=== PATIENT | female | born 1935 | race Asian ===

== ENCOUNTER 2018-01-28 04:32 | Inpatient (IN) | payer SELFPAY ==
[~2018-01-28] VITALS: Ht 152.4 cm; Wt 50.8 kg
[2018-01-28] VITALS (15 sets, daily range): BP systolic 96–133; BP diastolic 57–76
[2018-01-28] MEDS ORDERED: Sodium Chloride 500ML 500 ML IV ONE (04:37)
--- NOTE | 2018-01-28 04:39 | Emergency Room Report ---
History of Present Illness General Source: Patient (Bruna Argueta DO) Present Illness HPI Patient presents with complaints of nausea and vomiting patient also had mid abdominal pain Symptoms started recently Patient's grandson reports the patient had bladder infection previously At this time denies any chest pain denies any fevers or chills Denies any dysuria Pain is 5 out of 10 Sharp denies any radiation (JacobaayushBruna DO) Allergies: Coded Allergies: NO KNOWN ALLERGIES (Unverified Allergy, Unknown, 04/09/15) Patient History Past Medical History: see triage record Pertinent Family History: none Reviewed Nursing Documentation: PMH: Agreed; PSxH: Agreed (JacobBruna looney ) Nursing Documentation-PMH Hx Hypertension: Yes Hx Cancer: No Hx Gastrointestinal Problems: No Hx Neurological Problems: No (JacobBruna brooks DO) Review of Systems All Other Systems: negative except mentioned in HPI (JacobtoddBruna DAVIES) Physical Exam 99% on room air Sp02 EP Interpretation: reviewed, normal General Appearance: well appearing, no apparent distress Head: normocephalic, atraumatic Eyes: bilateral eye PERRL, bilateral eye EOMI ENT: hearing grossly normal, normal pharynx, TMs + canals normal, uvula midline Neck: full range of motion, supple, no meningismus, no bony tend Respiratory: lungs clear, normal breath sounds, no rhonchi, no respiratory distress, no retraction, no accessory muscle use Cardiovascular #1: normal peripheral pulses, regular rate, rhythm, no edema, no gallop, no JVD, no murmur Gastrointestinal: normal bowel sounds, non tender - However subjectively points to the mid epigastric and mid abdominal area, soft, no mass, no organomegaly, non-distended, no guarding, no hernia, no pulsatile mass, no rebound Genitourinary: no CVA tenderness Musculoskeletal: normal inspection Neurologic: oriented x3, responsive, foam tank laminator III-XII nml as tested, motor strength/ tone normal, sensory intact Psychiatric: mood/affect normal Skin: normal color, no rash, warm/dry, palpation normal Lymphatic: normal inspection, no adenopathy (LeviBruna sellers DO) Procedures Critical Care Time Critical Care Time 50 minutes for multiple re-evaluations, critical findings concerning for acute cardiac injury and possible not including any procedural time (Jamehdor,Ali DO) Critical Care Time Total Critical Care Time: 45 min bedside evaluation and treatment excludes procedures (EKG). Reason for critical care: blood transfusion, discussion with family, evaluation of CT and discussion with jewelry consultant and admitting MD, antibiotics Possible complications: hypotension, hypertension, [place], shock, arrhythmias, metabolic acidosis, end organ damage, respiratory failure. Interventions: transfusion, pain control, repeated exams, discussion with family , antibiotics Course: Patient with low H/H with melena. Hypotensive. Blood ordered and discussed with family. Improved BP. CT with choledocholithiasis. WBC high. Antibiotics begun. BP enough for analgesia. Repeated exams and doses of analgesia. Discussed with admitting MD and GI specialist. Consultations: nursing staff, EMS, family, blood bank, admitting MD, GI jewelry consultant Performed by: Dr. Heart Tolerated well condition = critical (Alvin Heart MD) Medical Decision Making Diagnostic Impression: Primary Impression: Abdominal pain Qualified Codes: R10.13 - Epigastric pain Additional Impressions: Vomiting Qualified Codes: R11.2 - Nausea with vomiting, unspecified Anemia Qualified Codes: D64.9 - Anemia, unspecified GI bleed Qualified Codes: K92.2 - Gastrointestinal hemorrhage, unspecified Choledocholithiasis ER Course After discussing further with the family They report now that the patient has been having black stools Patient does not have a record of previously being anemic Has not had any previous blood transfusions Today's finding is concerning for GI bleed Patient's CAT scan imaging also displays some concerning findings/nonspecific findings Patient requiring admission and further specialty consultation Blood transfusion has been ordered emergently and patient upgraded to telemetry Labs Test 01/28/18 04:45 01/28/18 05:07 01/28/18 06:30 01/28/18 13:50 White Blood Count 12.0 K/UL (4.8-10.8) 17.0 K/UL (4.8-10.8) 23.6 K/UL (4.8-10.8) Red Blood Count 2.98 M/UL (4.20-5.40) 2.96 M/UL (4.20-5.40) 4.05 M/UL (4.20-5.40) Hemoglobin 5.2 G/DL (12.0-16.0) 5.2 G/DL (12.0-16.0) 8.5 G/DL (12.0-16.0) Hematocrit 17.5 % (37.0-47.0) 17.6 % (37.0-47.0) 27.0 % (37.0-47.0) Mean Corpuscular Volume 59 FL (80-99) 59 FL (80-99) 67 FL (80-99) Mean Corpuscular Hemoglobin 17.4 PG (27.0-31.0) 17.6 PG (27.0-31.0) 21.1 PG (27.0-31.0) Mean Corpuscular Hemoglobin Concent 29.6 G/DL (32.0-36.0) 29.6 G/DL (32.0-36.0) 31.6 G/DL (32.0-36.0) Red Cell Distribution Width 14.7 % (11.6-14.8) 15.0 % (11.6-14.8) 23.4 % (11.6-14.8) Platelet Count 373 K/UL (150-450) 355 K/UL (150-450) 349 K/UL (150-450) Mean Platelet Volume 6.6 FL (6.5-10.1) 6.1 FL (6.5-10.1) 6.4 FL (6.5-10.1) Neutrophils (%) (Auto) % (45.0-75.0) % (45.0-75.0) % (45.0-75.0) Lymphocytes (%) (Auto) % (20.0-45.0) % (20.0-45.0) % (20.0-45.0) Monocytes (%) (Auto) % (1.0-10.0) % (1.0-10.0) % (1.0-10.0) Eosinophils (%) (Auto) % (0.0-3.0) % (0.0-3.0) % (0.0-3.0) Basophils (%) (Auto) % (0.0-2.0) % (0.0-2.0) % (0.0-2.0) Differential Total Cells Counted 100 100 100 Neutrophils % (Manual) 89 % (45-75) 93 % (45-75) 94 % (45-75) Lymphocytes % (Manual) 8 % (20-45) 3 % (20-45) 4 % (20-45) Monocytes % (Manual) 1 % (1-10) 0 % (1-10) 2 % (1-10) Eosinophils % (Manual) 1 % (0-3) 2 % (0-3) 0 % (0-3) Basophils % (Manual) 0 % (0-2) 0 % (0-2) 0 % (0-2) Band Neutrophils 1 % (0-8) 2 % (0-8) 0 % (0-8) Nucleated Red Blood Cells 1 /100 WBC Platelet Estimate Adequate Adequate Adequate Platelet Morphology Normal Normal Normal Anisocytosis 2+ 2+ 2+ Microcytosis 2+ 1+ 1+ Ovalocytes 1+ 1+ Acanthocytes 1+ 1+ 1+ Sodium Level 139 MMOL/L (136-145) Potassium Level 3.7 MMOL/L (3.5-5.1) Chloride Level 105 MMOL/L (98-107) Carbon Dioxide Level 21 MMOL/L (21-32) Anion Gap 13 mmol/L (5-15) Blood Urea Nitrogen 16 mg/dL (7-18) Creatinine 0.6 MG/DL (0.55-1.30) Estimat Glomerular Filtration Rate mL/min (>60) Glucose Level 133 MG/DL (74-106) Calcium Level 8.3 MG/DL (8.5-10.1) Total Bilirubin 0.4 MG/DL (0.2-1.0) Aspartate Amino Transf (AST/SGOT) 21 U/L (15-37) Alanine Aminotransferase (ALT/SGPT) 23 U/L (12-78) Alkaline Phosphatase 101 U/L (46-116) Total Creatine Kinase 37 U/L (26-308) Creatine Kinase MB 0.5 NG/ML (0.0-3.6) Creatine Kinase MB Relative Index 1.3 Troponin I 0.008 ng/mL (0.000-0.056) Total Protein 6.8 G/DL (6.4-8.2) Albumin 3.1 G/DL (3.4-5.0) Globulin 3.7 g/dL Albumin/Globulin Ratio 0.8 (1.0-2.7) Lipase 97 U/L (73-393) Urine Color Jennyfer Urine Appearance Slightly cloudy Urine pH 5 (4.5-8.0) Urine Specific [place] 1.025 (1.005-1.035) Urine Protein 2+ (NEGATIVE) Urine Glucose (UA) Negative (NEGATIVE) Urine Ketones 1+ (NEGATIVE) Urine Blood 1+ (NEGATIVE) Urine Nitrite Negative (NEGATIVE) Urine Bilirubin 2+ (NEGATIVE) Urine Ictotest Positive (NEGATIVE) Urine Urobilinogen 4 MG/DL (0.0-1.0) Urine Leukocyte Esterase 2+ (NEGATIVE) Urine RBC 0-2 /HPF (0 - 2) Urine WBC 15-20 /HPF (0 - 2) Urine Squamous Epithelial Cells Moderate /LPF (NONE/OCC) Urine Bacteria Few /HPF (NONE) Hypochromasia 1+ Schistocytes 1+ 1+ Macrocytosis 1+ Prothrombin Time 11.2 SEC (9.30-11.50) Prothromb Time International Ratio 1.1 (0.9-1.1) Activated Partial Thromboplast Time 27 SEC (23-33) (Bruna Argueta DO) ER Course Please see above note. Patient hypoxemic though no dyspnea. CXR ordered. Blood pending. C/O abd pain. BP low but good enough to treat pain. Epigastric, no rebound, more RUQ. Morphine ordered. BP improved. Blood started after discussion with family. CT results below. Discussed with family. Antibiotics given, protonix and consult GI. Contact Dr. Ramirez and discussed findings. VS improved. Pain improved. Morphine repeated and tolerated well. (Alvin Heart MD) Rhythm Strip Diag. Results EP Interpretation: yes Rate: 87 Rhythm: NSR, no PVC's, no ectopy (Bruna Argueta DO) EP Interpretation: yes Rhythm: NSR, no PVC's, no ectopy (Alvin Heart MD) Chest X-Ray Diagnostic Results Chest X-Ray Diagnostic Results : Chest X-Ray Ordered: Yes # of Views/Limited/Complete: 1 View Indication: Chest Pain EP Interpretation: Yes Interpretation: no consolidation, no effusion, no pneumothorax Impression: No acute disease Electronically Signed by: Bruna Argueta DO (Bruna Argueta DO) Chest X-Ray Diagnostic Results : Chest X-Ray Ordered: Yes # of Views/Limited/Complete: 1 View Indication: Other EP Interpretation: Yes Interpretation: no consolidation, no effusion, no pneumothorax, other - ectatic aorta (Alvin Heart MD) CT/MRI/US Diagnostic Results CT/MRI/US Diagnostic Results : Impression ct abd/pelvisImpression: Cholelithiasis and choledocholithiasis. Somewhat unusual as no evidence of such was seen on previous exam of April 2015. Small bubbles of gas seen in the downstream common bile duct at the level of the ampulla this raises possibility of microperforation or could be related to recent intervention such performed Consider ultrasound or MRCP for better characterization of the above Extensive colonic stool, some liquid, with mild distention proximally but no evidence of downstream obstructive lesion findings may represent constipation or colitis. Mild wall thickening of the descending colon could indicate stercoral colitis. Correlate with clinical findings No evidence of small bowel obstruction. However, small bowel loops are somewhat prominent and containing small bowel feces, indicating stasis of contents Vague area of low-attenuation in the right hepatic lobe, presumably sequela of previously demonstrated liver abscess 45 mm left ovarian cyst, unchanged from 04/09/2015 Basilar pulmonary dependent atelectasis, tiny left-sided bulla, and interstitial septal thickening Cardiomegaly Other findings as noted, including degenerative spondylosis, scoliosis, bilateral buttock injection granulomata, left fallopian tube calcifications (Bruna Argueta DO) CT/MRI/US Diagnostic Results : Imaging Test Ordered: CT a/p Impression Mild bibasilar atelectasis with mild pulmonary interstitial edema. Mild cardiomegaly. Anemia is suggested. Clearly lithiasis along with choledocholithiasis with common bowel duct distention. Gallbladder is distended. Right upper quadrant ultrasound recommended for further evaluation. Significant stool load suggesting constipation. Suggestion of cystitis. (Alvin Heart MD) Status: improved (Bruna Argueta DO) Last Vital Signs Date Time Temp Pulse Resp B/P (MAP) Pulse Ox O2 Delivery O2 Flow Rate FiO2 01/28/18 09:39 97.6 78 21 109/67 100 Room Air Status: improved (Alvin Heart MD) Disposition: ADMITTED INPATIENT Condition: Critical Bruna Argueta DO Jan 28, 2018 04:39 Alvin Heart MD Jan 28, 2018 06:35
[2018-01-28] MEDS ORDERED: DiphenhydrAMINE 50mg/ml Inj IVP ONE (05:15)
[2018-01-28 05:54] LABS: HEMATOCRIT 17.5 % (37.0-47.0); MEAN CORPUSCULAR VOLUME 59 FL (80-99); PLATELET COUNT 373 K/UL (150-450); RED BLOOD COUNT 2.98 M/UL (4.20-5.40); RED CELL DISTRIBUTION WIDTH 14.7 % (11.6-14.8)
[2018-01-28 05:55] LABS: APPEARANCE,URINE SLIGHTLY CLOUDY; BILIRUBIN, URINE 2+ (NEGATIVE); GLUCOSE, URINE (UA) NEGATIVE (NEGATIVE); KETONES,URINE 1+ (NEGATIVE); NITRITE,URINE NEGATIVE (NEGATIVE); PH,URINE 5 (4.5-8.0); PROTEIN,URINE 2+ (NEGATIVE); UROBILINOGEN,URINE 4 MG/DL (0.0-1.0)
[2018-01-28 06:07] LABS: ANION GAP 13 mmol/L (5-15); BLOOD UREA NITROGEN 16 mg/dL (7-18); CALCIUM 8.3 MG/DL (8.5-10.1); CARBON DIOXIDE 21 MMOL/L (21-32); CHLORIDE 105 MMOL/L (98-107); CREATININE 0.6 MG/DL (0.55-1.30); POTASSIUM 3.7 MMOL/L (3.5-5.1); SODIUM 139 MMOL/L (136-145)
[2018-01-28 06:10] LABS: HEMOGLOBIN 5.2 G/DL (12.0-16.0)
[2018-01-28 06:13] LABS: COLOR,URINE AMBER; LEUKOCYTE ESTERASE ,URINE 2+ (NEGATIVE)
[2018-01-28 06:19] LABS: ALANINE AMINOTRANSFERASE 23 U/L (12-78); ALBUMIN 3.1 G/DL (3.4-5.0); ALBUMIN/GLOBULIN RATIO 0.8 (1.0-2.7); ALKALINE PHOSPHATASE 101 U/L (46-116); ASPARTATE AMINO TRANSFERASE 21 U/L (15-37); BILIRUBIN,TOTAL 0.4 MG/DL (0.2-1.0); CKMB 0.5 NG/ML (0.0-3.6); CREATINE KINASE 37 U/L (26-308)
[2018-01-28] MEDS ORDERED: NKM (06:34)
[2018-01-28 06:42] LABS: HEMATOCRIT 17.6 % (37.0-47.0); MEAN CORPUSCULAR VOLUME 59 FL (80-99); PLATELET COUNT 355 K/UL (150-450); RED BLOOD COUNT 2.96 M/UL (4.20-5.40)
[2018-01-28] MEDS: Morphine Sulfate 2mg/ml Inj IVP ONE ×2 (06:47→06:54)
[2018-01-28] MEDS ORDERED: Morphine Sulfate 2mg/ml Inj IVP ONE ×3 (07:00→09:00)
[2018-01-28] MEDS ORDERED: Nitroglycerin Subl 0.4mg tab SL PRN ×2 (07:15→17:00)
[2018-01-28] MEDS ORDERED: Mylanta II UD 30ml ORAL PRN ×2 (07:15→17:30)
[2018-01-28] MEDS ORDERED: Promethazine HCl 25 MG in NS 55 ML IV PRN (07:15)
[2018-01-28] MEDS ORDERED: Miralax 17gm pkt ORAL PRN ×2 (07:15→21:00)
[2018-01-28] MEDS ORDERED: LORazepam Inj 2mg/ml 1ml IV PRN ×2 (07:15→17:30)
[2018-01-28] MEDS ORDERED: Morphine Sulfate 2mg/ml Inj IVP PRN (07:15)
[2018-01-28] MEDS ORDERED: Promethazine HCl 12.5 MG in NS 55 ML IV PRN (07:15)
[2018-01-28] MEDS ORDERED: Metoclopramide 10mg/2ml Inj IVP PRN (07:15)
[2018-01-28 07:28] LABS: HEMOGLOBIN 5.2 G/DL (12.0-16.0)
[2018-01-28] MEDS ORDERED: Pantoprazole Inj IVP STA (07:36)
[2018-01-28] MEDS ORDERED: Cefepime HCl 1 GM in D5W 55 ML IVPB ONE (07:45)
[2018-01-28] MEDS ORDERED: Heparin 5000 units/ml inj SUBQ SCH (09:00)
[2018-01-28] MEDS ORDERED: D5 1/2NS 1,000 ML IV SCH (09:00)
[2018-01-28] MEDS ORDERED: Pantoprazole Inj IV SCH (09:00)
--- NOTE | 2018-01-28 09:30 | GI Initial Consult Note ---
History of Present Illness General Date patient seen: Jan 28, 2018 Time patient seen: 09:26 Reason for Hospitalization: Abdominal Pain Referring physician: IMELDA CHARLES Reason for Consultation: UGIB Present Illness HPI Patient presents with complaints of nausea and vomiting patient also had mid abdominal pain with complaints of melena. GI consulted for possible UGIB. Pt presents today with anemia with severely low Hgb of 5.2 CT AP was performed in ED to show the presence of cholelithiasis and choledocholithiasis with CBD dilation. In addition showed with distended gallbladder and stool consistent with constipation. Labs reviewed; severe anemia, leukocytosis, no transaminitis nor elevated bilirubin. Pt seen, awake A&Ox4 with active vomiting at this time. Patient has c/o of stomach discomfort and pain. Unknown history of endoscopy / colonoscopy. Home Meds Reported Medications No Known Medications* (NKM - No Known Medications*) ., 0 ., 0 Refills 01/28/18 Med list reviewed/reconciled: Yes Allergies: Coded Allergies: NO KNOWN ALLERGIES (Unverified Allergy, Unknown, 04/09/15) Patient History History Provided By: Patient, Family Member, Medical Record PMH Narrative Past Medical History: see triage record Pertinent Family History: none Reviewed Nursing Documentation: PMH: Agreed; PSxH: Agreed Nursing Documentation-PMH Hx Hypertension: Yes Hx Cancer: No Hx Gastrointestinal Problems: No Hx Neurological Problems: No Social History: Denies: smoking, alcohol use, drug use, other Review of Systems All Other Systems: negative except mentioned in HPI Physical Exam Vital Signs Date Time Temp Pulse Resp B/P (MAP) Pulse Ox O2 Delivery O2 Flow Rate FiO2 01/28/18 04:38 97.3 60 18 118/62 98 Room Air Sp02 EP Interpretation: reviewed, normal Labs Laboratory Tests Test 01/28/18 04:45 01/28/18 05:07 01/28/18 06:30 White Blood Count 12.0 K/UL (4.8-10.8) H 17.0 K/UL (4.8-10.8) H Red Blood Count 2.98 M/UL (4.20-5.40) L 2.96 M/UL (4.20-5.40) L Hemoglobin 5.2 G/DL (12.0-16.0) *L 5.2 G/DL (12.0-16.0) *L Hematocrit 17.5 % (37.0-47.0) L 17.6 % (37.0-47.0) L Mean Corpuscular Volume 59 FL (80-99) L 59 FL (80-99) L Mean Corpuscular Hemoglobin 17.4 PG (27.0-31.0) L 17.6 PG (27.0-31.0) L Mean Corpuscular Hemoglobin Concent 29.6 G/DL (32.0-36.0) L 29.6 G/DL (32.0-36.0) L Red Cell Distribution Width 14.7 % (11.6-14.8) 15.0 % (11.6-14.8) H Platelet Count 373 K/UL (150-450) 355 K/UL (150-450) Mean Platelet Volume 6.6 FL (6.5-10.1) 6.1 FL (6.5-10.1) L Neutrophils (%) (Auto) % (45.0-75.0) % (45.0-75.0) Lymphocytes (%) (Auto) % (20.0-45.0) % (20.0-45.0) Monocytes (%) (Auto) % (1.0-10.0) % (1.0-10.0) Eosinophils (%) (Auto) % (0.0-3.0) % (0.0-3.0) Basophils (%) (Auto) % (0.0-2.0) % (0.0-2.0) Differential Total Cells Counted 100 Neutrophils % (Manual) 89 % (45-75) H Pending Lymphocytes % (Manual) 8 % (20-45) L Pending Monocytes % (Manual) 1 % (1-10) Eosinophils % (Manual) 1 % (0-3) Basophils % (Manual) 0 % (0-2) Band Neutrophils 1 % (0-8) Nucleated Red Blood Cells 1 /100 WBC Platelet Estimate Adequate Pending Platelet Morphology Normal Pending Anisocytosis 2+ Microcytosis 2+ Ovalocytes 1+ Acanthocytes 1+ Sodium Level 139 MMOL/L (136-145) Potassium Level 3.7 MMOL/L (3.5-5.1) Chloride Level 105 MMOL/L (98-107) Carbon Dioxide Level 21 MMOL/L (21-32) Anion Gap 13 mmol/L (5-15) Blood Urea Nitrogen 16 mg/dL (7-18) Creatinine 0.6 MG/DL (0.55-1.30) Estimat Glomerular Filtration Rate mL/min (>60) Glucose Level 133 MG/DL (74-106) H Calcium Level 8.3 MG/DL (8.5-10.1) L Total Bilirubin 0.4 MG/DL (0.2-1.0) Aspartate Amino Transf (AST/SGOT) 21 U/L (15-37) Alanine Aminotransferase (ALT/SGPT) 23 U/L (12-78) Alkaline Phosphatase 101 U/L (46-116) Total Creatine Kinase 37 U/L (26-308) Creatine Kinase MB 0.5 NG/ML (0.0-3.6) Creatine Kinase MB Relative Index 1.3 Troponin I 0.008 ng/mL (0.000-0.056) Total Protein 6.8 G/DL (6.4-8.2) Albumin 3.1 G/DL (3.4-5.0) L Globulin 3.7 g/dL Albumin/Globulin Ratio 0.8 (1.0-2.7) L Lipase 97 U/L (73-393) Urine Color Jennyfer Urine Appearance Slightly cloudy Urine pH 5 (4.5-8.0) Urine Specific [place] 1.025 (1.005-1.035) Urine Protein 2+ (NEGATIVE) H Urine Glucose (UA) Negative (NEGATIVE) Urine Ketones 1+ (NEGATIVE) H Urine Blood 1+ (NEGATIVE) H Urine Nitrite Negative (NEGATIVE) Urine Bilirubin 2+ (NEGATIVE) H Urine Ictotest Positive (NEGATIVE) Urine Urobilinogen 4 MG/DL (0.0-1.0) H Urine Leukocyte Esterase 2+ (NEGATIVE) H Urine RBC 0-2 /HPF (0 - 2) Urine WBC 15-20 /HPF (0 - 2) H Urine Squamous Epithelial Cells Moderate /LPF (NONE/OCC) H Urine Bacteria Few /HPF (NONE) General Appearance: well appearing, no apparent distress, alert Head: normocephalic EENT: PERRL/EOMI, normal ENT inspection Neck: supple Respiratory: normal breath sounds, no respiratory distress Cardiovascular: normal rate Gastrointestinal: normal inspection, non tender, soft, normal bowel sounds, non -distended Rectal: deferred Genitourinary: no CVA tenderness Musculoskeletal: normal inspection, back normal Neurologic: normal inspection, alert, oriented x3, responsive Psychiatric: normal inspection, judgement/insight normal, memory normal Skin: normal inspection, normal color, no rash, warm/dry, palpation normal, well hydrated Lymphatic: normal inspection, no adenopathy Current Medications Current Medications Medications (Trade) Dose Ordered Sig/Bre Route PRN Reason Start Time Stop Time Status Last Admin Dose Admin Acetaminophen (Tylenol) 650 mg Q4H PRN ORAL fever (temp>100.5F) 01/28/18 07:15 02/27/18 07:14 Al Hydroxide/Mg Hydroxide (Mylanta II) 30 ml Q6H PRN ORAL dyspepsia 01/28/18 07:15 02/27/18 07:14 Dextrose (Dextrose 50%) 25 ml Q30M PRN IV Hypoglycemia 01/28/18 07:15 02/27/18 07:14 Dextrose (Dextrose 50%) 50 ml Q30M PRN IV Hypoglycemia 01/28/18 07:15 02/27/18 07:14 Dextrose/Sodium Chloride 1,000 ml @ 75 mls/hr [id number] IV 01/28/18 09:00 02/27/18 08:59 Diphenhydramine HCl (Benadryl) 25 mg Q6H PRN ORAL Itching/Pruritis 01/28/18 07:15 02/27/18 07:14 Lorazepam (Ativan 2mg/ml 1ml) 1 mg Q4H PRN IV agitation 01/28/18 07:15 02/04/18 07:14 Metoclopramide HCl (Reglan) 10 mg Q6H PRN IVP severe nausea 01/28/18 07:15 02/27/18 07:14 Morphine Sulfate (Morphine Sulfate) 2 mg Q4H PRN IVP severe pain (Pain Scale 7-10) 01/28/18 07:15 02/04/18 07:14 Nitroglycerin (Ntg) 0.4 mg Q5M X 3 DOSES PRN SL Prn Chest Pain 01/28/18 07:15 02/27/18 07:14 Ondansetron HCl (Zofran) 4 mg Q6H PRN IVP Nausea & Vomiting 01/28/18 07:15 02/27/18 07:14 01/28/18 09:12 Pantoprazole 80 mg/Sodium Chloride 250 ml @ 25 mls/hr Q10H IV 01/28/18 10:00 02/27/18 09:59 Polyethylene Glycol (Miralax) 17 gm HSPRN PRN ORAL Constipation 01/28/18 07:15 02/27/18 07:14 Promethazine HCl (Phenergan) 12.5 mg Q6H PRN IM refractory N/V 01/28/18 09:15 02/27/18 09:14 Temazepam (Restoril) 15 mg HSPRN PRN ORAL Insomnia 01/28/18 20:00 02/04/18 19:59 GI: Plan Problems: (1) GI bleed (2) Vomiting (3) Abdominal pain (4) Anemia (5) Choledocholithiasis (6) Abdominal gas pain Plan preliminary CTAP report >> cholelithiasis. choledocholithiasis with CBD dilation. GB distention. receiving pRBCs now EGD scheduled for today. - maintain NPO + IVFs ppi gtt will need abdominal U/S will follow with addition recs post procedure. Discussed with Dr. Ramirez. Thank you for this patient referral, we will follow. The patient was seen and examined at bedside and all new and available data was reviewed in the patients chart. I agree with the above findings, impression and plan. (Patient seen earlier today. Signature stamp does not reflect patient encounter time.). - MD Indy Cavazos,[facility] [employer]OL REPAIR TECHNICIAN Jan 28, 2018 09:30
--- NOTE | 2018-01-28 09:59 | Diagnostic Imaging Report ---
Indication: Abdominal pain for 4 days Technique: Spiral acquisitions obtained through the abdomen and pelvis. No oral contrast utilized, per referring room physician request No IV contrast utilized, per referring physician request.. Multiplanar reconstructions were generated. Total dose length product 768.85 mGycm. CTDIvol(s) 17.05 mGy. Dose reduction achieved using automated exposure control Comparison: 04/09/2015 contrast study Findings: Lack of enteric contrast limits assessment of the GI tract The appendix is normal. The ascending colon is is mildly distended, stool-filled, apparently combination of solid and liquid stool. The transverse colon is less distended but still upper limits of normal caliber and stool-filled, as is the proximal descending colon which gradually tapers to more normal caliber sigmoid colon and rectum. The ascending colon appears to be filled with solid stool, demonstrates mild wall thickening. No evidence of colonic obstructive process demonstrated. No definite wall thickening. Distal small bowel loops are somewhat prominent in caliber, but not frankly distended, contains fecalized contents. No free intraperitoneal fluid is evident. No evidence of diverticulosis or diverticulitis. Numerous calculi are seen within the gallbladder and along the course of the common bile duct. Note that the previous exam did not demonstrate any evidence of gallstones. There are also a few gas bubbles apparently surrounding the common bile duct at the level of the ampulla. The gallbladder is slightly more distended on the prior exam, but no wall thickening is evident and there is no evidence of biliary ductal dilatation. Of note, round hyperattenuating foci of similar appearance are also seen within the gastric and duodenal lumens. These most likely represent ingested tablets, but could conceivably represent passed biliary calculi. Given this and the periampullary gas, the possibility of a fistula should also be considered. These findings were discussed in person with Dr. Ramirez at the time of interpretation The lack of IV contrast limits assessment of the solid organs. There is some vague low-attenuation in segment 7 of the liver, in the area of the previously demonstrated presumed liver abscess. No other focal liver abnormality demonstrated. Other than the findings related to the biliary ampulla, the pancreas is otherwise grossly unremarkable. Spleen, adrenals, kidneys are unremarkable. No retroperitoneal or mesenteric mass or adenopathy. Again demonstrated is a unilocular somewhat thick walled 45 mm left ovarian cyst, appearing similar to the previous exam. Tubal calcifications are seen on the left. The included lung bases demonstrate posterior dependent atelectatic changes and a tiny bulla on the left. There is also some interstitial septal thickening. The heart is mildly enlarged. The bones demonstrate degenerative spondylosis changes and mild scoliotic deformity. Calcified injection granulomata are seen in the bilateral buttocks Impression: Cholelithiasis and choledocholithiasis. Somewhat unusual as no evidence of such was seen on previous exam of April 2015. Small bubbles of gas seen in the downstream common bile duct at the level of the ampulla this raises possibility of microperforation or could be related to recent intervention such performed Consider ultrasound or MRCP for better characterization of the above Extensive colonic stool, some liquid, with mild distention proximally but no evidence of downstream obstructive lesion findings may represent constipation or colitis. Mild wall thickening of the descending colon could indicate stercoral colitis. Correlate with clinical findings No evidence of small bowel obstruction. However, small bowel loops are somewhat prominent and containing small bowel feces, indicating stasis of contents Vague area of low-attenuation in the right hepatic lobe, presumably sequela of previously demonstrated liver abscess 45 mm left ovarian cyst, unchanged from 04/09/2015 Basilar pulmonary dependent atelectasis, tiny left-sided bulla, and interstitial septal thickening Cardiomegaly Other findings as noted, including degenerative spondylosis, scoliosis, bilateral buttock injection granulomata, left fallopian tube calcifications This agrees with the preliminary interpretation provided overnight by [facility] teleradiology service. The CT scanner at [facility] is accredited by the [employer] and the scans are performed using protocols designed to limit radiation exposure to as low as reasonably achievable to attain images of sufficient resolution adequate for diagnostic evaluation.
--- NOTE | 2018-01-28 10:31 | Diagnostic Imaging Report ---
Indication: Dyspnea Technique: One view of the chest Comparison: none Findings: Lungs and pleural spaces are clear. The heart size is upper limits of normal. The aorta is tortuous and calcified Impression: No acute process
[2018-01-28] MEDS ORDERED: NS 500ML IVPB ONE (10:55)
--- NOTE | 2018-01-28 11:00 | Pre-Procedure Note/Attestation ---
Pre-Procedure Note/Attestation Complete Prior to Procedure Planned Procedure: not applicable Procedure Narrative: egd Indications for Procedure Pre-Operative Diagnosis: gib Attestation I attest that I discussed the nature of the procedure; its benefits; risks and complications; and alternatives (and the risks and benefits of such alternatives ), prior to the procedure, with the patient (or the patient's legal dealer compliance representative). I attest that, if there was a reasonable possibility of needing a blood transfusion, the patient (or the patient's legal dealer compliance representative) was given the [facility] standardized written summary, pursuant to the [employer] Blood Safety Act ([place] Health and Safety Code # 1645, as amended). I attest that I re-evaluated the patient just prior to the surgery and that there has been no change in the patient's H&P, except as documented below: Dale Ramirez MD Jan 28, 2018 11:00
--- NOTE | 2018-01-28 12:07 | Anethesia Preoperative Eval ---
Anesthesia Pre-op PMH/ROS General Date of Evaluation: Jan 28, 2018 Time of Evaluation: 11:00 ASA Score: ASA 2 Mallampati Score Class I : Soft palate, uvula, fauces, pillars visible Class II: Soft palate, uvula, fauces visible Class III: Soft palate, base of uvula visible Class IV: Only hard plate visible Mallampati Classification: Class II Surgeon: vy Diagnosis: gi bleed Surgical Procedure: egd Anesthesia History: none Family History: no anesthesia problems Allergies: Coded Allergies: NO KNOWN ALLERGIES (Unverified Allergy, Unknown, 04/09/15) Medications: see eMAR Patient NPO?: Yes NPO Date: Jan 27, 2018 NPO Time: 15:00 Past Medical History Cardiovascular: Denies: HTN, CAD, TN, valve dz, arrhythmia, other Pulmonary: Denies: asthma, COPD, GAEL, other Gastrointestinal/Genitourinary: Denies: GERD, CRI, ESRD, other Neurologic/Psychiatric: Denies: dementia, CVA, depression/anxiety, TIA, other Endocrine: Denies: DM, hypothyroidism, steroids, other HEENT: Denies: cataract (L), cataract (R), glaucoma, KOI (L), KOI (R), other Hematology/Immune: Reports: anemia; Denies: DVT, bleeding disorder, other Musculoskeletal/Integumentary: Denies: OA, RA, DJD, DDD, edema, other PSxH Narrative: knee surgery Anesthesia Pre-op Phys. Exam Physician Exam Last Vital Signs Date Time Temp Pulse Resp B/P (MAP) Pulse Ox O2 Delivery O2 Flow Rate FiO2 01/28/18 11:48 69 14 133/76 98 Nasal Cannula 3 01/28/18 11:12 98.5 Constitutional: NAD Neurologic: CN 2-12 intact Cardiovascular: RRR Respiratory: CTA Gastrointestinal: S/NT/ND Airway Exam Mallampati Classification 2 Mallampati Score: Class II MO: full ROM: full Dentures: no upper, no lower Anesthesia Pre-op A/P Labs Hematology Test 01/28/18 04:45 01/28/18 06:30 White Blood Count 12.0 K/UL (4.8-10.8) H 17.0 K/UL (4.8-10.8) H Red Blood Count 2.98 M/UL (4.20-5.40) L 2.96 M/UL (4.20-5.40) L Hemoglobin 5.2 G/DL (12.0-16.0) *L 5.2 G/DL (12.0-16.0) *L Hematocrit 17.5 % (37.0-47.0) L 17.6 % (37.0-47.0) L Mean Corpuscular Volume 59 FL (80-99) L 59 FL (80-99) L Mean Corpuscular Hemoglobin 17.4 PG (27.0-31.0) L 17.6 PG (27.0-31.0) L Mean Corpuscular Hemoglobin Concent 29.6 G/DL (32.0-36.0) L 29.6 G/DL (32.0-36.0) L Red Cell Distribution Width 14.7 % (11.6-14.8) 15.0 % (11.6-14.8) H Platelet Count 373 K/UL (150-450) 355 K/UL (150-450) Mean Platelet Volume 6.6 FL (6.5-10.1) 6.1 FL (6.5-10.1) L Neutrophils (%) (Auto) % (45.0-75.0) % (45.0-75.0) Lymphocytes (%) (Auto) % (20.0-45.0) % (20.0-45.0) Monocytes (%) (Auto) % (1.0-10.0) % (1.0-10.0) Eosinophils (%) (Auto) % (0.0-3.0) % (0.0-3.0) Basophils (%) (Auto) % (0.0-2.0) % (0.0-2.0) Differential Total Cells Counted 100 100 Neutrophils % (Manual) 89 % (45-75) H 93 % (45-75) H Lymphocytes % (Manual) 8 % (20-45) L 3 % (20-45) L Monocytes % (Manual) 1 % (1-10) 0 % (1-10) L Eosinophils % (Manual) 1 % (0-3) 2 % (0-3) Basophils % (Manual) 0 % (0-2) 0 % (0-2) Band Neutrophils 1 % (0-8) 2 % (0-8) Nucleated Red Blood Cells 1 /100 WBC Platelet Estimate Adequate Adequate Platelet Morphology Normal Normal Anisocytosis 2+ 2+ Microcytosis 2+ 1+ Ovalocytes 1+ Acanthocytes 1+ 1+ Hypochromasia 1+ Schistocytes 1+ Chemistry Test 01/28/18 04:45 Sodium Level 139 MMOL/L (136-145) Potassium Level 3.7 MMOL/L (3.5-5.1) Chloride Level 105 MMOL/L (98-107) Carbon Dioxide Level 21 MMOL/L (21-32) Anion Gap 13 mmol/L (5-15) Blood Urea Nitrogen 16 mg/dL (7-18) Creatinine 0.6 MG/DL (0.55-1.30) Estimat Glomerular Filtration Rate mL/min (>60) Glucose Level 133 MG/DL (74-106) H Calcium Level 8.3 MG/DL (8.5-10.1) L Total Bilirubin 0.4 MG/DL (0.2-1.0) Aspartate Amino Transf (AST/SGOT) 21 U/L (15-37) Alanine Aminotransferase (ALT/SGPT) 23 U/L (12-78) Alkaline Phosphatase 101 U/L (46-116) Total Creatine Kinase 37 U/L (26-308) Creatine Kinase MB 0.5 NG/ML (0.0-3.6) Creatine Kinase MB Relative Index 1.3 Troponin I 0.008 ng/mL (0.000-0.056) Total Protein 6.8 G/DL (6.4-8.2) Albumin 3.1 G/DL (3.4-5.0) L Globulin 3.7 g/dL Albumin/Globulin Ratio 0.8 (1.0-2.7) L Lipase 97 U/L (73-393) Studies Pre-op Studies: EKG - sr Risk Assessment & Plan Assessment: receiving 2nd unit of prbc Plan: mac Status Change Before Surgery: No Pre-Antibiotics Drug: none Kellen Jamison CRNA Jan 28, 2018 12:07
--- NOTE | 2018-01-28 12:08 | Immediate Post-Op Evaluation ---
Immediate Post-Op Evalulation Immediate Post-Op Evalulation Procedure: egd Date of Evaluation: Jan 28, 2018 Time of Evaluation: 11:15 IV Fluids: 400 Blood Products: 150 Blood Pressure Systolic: 119 Blood Pressure Diastolic: 69 Pulse Rate: 72 Respiratory Rate: 14 O2 Sat by Pulse Oximetry: 98 Temperature (Fahrenheit): 98.5 Pain Score (1-10): 0 Nausea: No Vomiting: No Complications none Patient Status: awake, reacts, patent Hydration Status: adequate Drug: none Kellen Jamison CRNA Jan 28, 2018 12:08
--- NOTE | 2018-01-28 12:09 | 48 Hour Post Anesthesia Eval ---
Post Anesthesia Evaluation Procedure: egd Date of Evaluation: Jan 28, 2018 Time of Evaluation: 12:09 Blood Pressure Systolic: 133 0: 76 Pulse Rate: 70 Respiratory Rate: 14 O2 Sat by Pulse Oximetry: 98 Airway: patent Nausea: No Vomiting: No Hydration Status: adequate Cardiopulmonary Status: stable Mental Status/LOC: patient returned to baseline Post-Anesthesia Complications: na Follow-up care needed: N/A Kellen Jamison CRNA Jan 28, 2018 12:09
--- NOTE | 2018-01-28 12:32 | Consultation ---
History of Present Illness General Date patient seen: Jan 28, 2018 Chief Complaint: Abdominal Pain Referring physician: IMELDA CHARLES Reason for Consultation: UGIB Present Illness HPI 82 year old female presents with complaints of nausea and vomiting patient also had mid abdominal pain. Her hemoglobin was 5. She is admitted to telemetry for further evaluation. Allergies: Coded Allergies: NO KNOWN ALLERGIES (Unverified Allergy, Unknown, 04/09/15) Medication History Scheduled No Known Medications* (NKM - No Known Medications*), 0 ., (Reported) Patient History Healthcare decision maker self and daughter Resuscitation status Full Code Advanced Directive on File Review of Systems All Other Systems: negative except mentioned in HPI Physical Exam General Appearance: WD/WN, no apparent distress Lines, tubes and drains: peripheral HEENT: normocephalic, atraumatic Neck: non-tender, normal alignment Respiratory/Chest: chest wall non-tender, lungs clear Breasts: no masses Cardiovascular/Chest: normal peripheral pulses Abdomen: normal bowel sounds, non tender Genitourinary/Rectal: normal genital exam Extremities: normal range of motion Last 24 Hour Vital Signs Date Time Temp Pulse Resp B/P (MAP) Pulse Ox O2 Delivery O2 Flow Rate FiO2 01/28/18 12:09 70 14 98 01/28/18 12:08 72 14 98 01/28/18 11:48 69 14 133/76 98 Nasal Cannula 3 01/28/18 11:40 69 14 133/76 98 Nasal Cannula 3 01/28/18 11:22 70 14 128/74 98 Nasal Cannula 3 01/28/18 11:17 70 14 122/72 98 Nasal Cannula 3 01/28/18 11:12 98.5 72 14 119/69 98 Nasal Cannula 3 01/28/18 10:30 Room Air 01/28/18 10:30 Room Air 01/28/18 10:00 97.9 70 18 112/67 (82) 97 01/28/18 09:39 97.6 78 21 109/67 100 Room Air 01/28/18 09:22 97.6 01/28/18 09:20 97.6 78 21 109/67 100 Room Air 01/28/18 09:02 97.6 01/28/18 08:50 97.6 74 25 114/65 100 Room Air 01/28/18 08:35 97.6 76 18 110/57 100 Room Air 01/28/18 08:20 97.9 74 18 108/62 100 Room Air 01/28/18 07:18 98.0 01/28/18 07:09 98.0 60 20 96/60 100 Room Air 01/28/18 05:32 76 23 01/28/18 05:32 97.4 76 23 108/69 100 Room Air 01/28/18 04:38 97.3 60 18 118/62 98 Room Air Intake and Output 01/27/18 01/28/18 18:59 06:59 Intake Total 500 ml Balance 500 ml Intake IV Total 500 ml Laboratory Tests Test 01/28/18 04:45 01/28/18 05:07 01/28/18 06:30 White Blood Count 12.0 K/UL (4.8-10.8) H 17.0 K/UL (4.8-10.8) H Red Blood Count 2.98 M/UL (4.20-5.40) L 2.96 M/UL (4.20-5.40) L Hemoglobin 5.2 G/DL (12.0-16.0) *L 5.2 G/DL (12.0-16.0) *L Hematocrit 17.5 % (37.0-47.0) L 17.6 % (37.0-47.0) L Mean Corpuscular Volume 59 FL (80-99) L 59 FL (80-99) L Mean Corpuscular Hemoglobin 17.4 PG (27.0-31.0) L 17.6 PG (27.0-31.0) L Mean Corpuscular Hemoglobin Concent 29.6 G/DL (32.0-36.0) L 29.6 G/DL (32.0-36.0) L Red Cell Distribution Width 14.7 % (11.6-14.8) 15.0 % (11.6-14.8) H Platelet Count 373 K/UL (150-450) 355 K/UL (150-450) Mean Platelet Volume 6.6 FL (6.5-10.1) 6.1 FL (6.5-10.1) L Neutrophils (%) (Auto) % (45.0-75.0) % (45.0-75.0) Lymphocytes (%) (Auto) % (20.0-45.0) % (20.0-45.0) Monocytes (%) (Auto) % (1.0-10.0) % (1.0-10.0) Eosinophils (%) (Auto) % (0.0-3.0) % (0.0-3.0) Basophils (%) (Auto) % (0.0-2.0) % (0.0-2.0) Differential Total Cells Counted 100 100 Neutrophils % (Manual) 89 % (45-75) H 93 % (45-75) H Lymphocytes % (Manual) 8 % (20-45) L 3 % (20-45) L Monocytes % (Manual) 1 % (1-10) 0 % (1-10) L Eosinophils % (Manual) 1 % (0-3) 2 % (0-3) Basophils % (Manual) 0 % (0-2) 0 % (0-2) Band Neutrophils 1 % (0-8) 2 % (0-8) Nucleated Red Blood Cells 1 /100 WBC Platelet Estimate Adequate Adequate Platelet Morphology Normal Normal Anisocytosis 2+ 2+ Microcytosis 2+ 1+ Ovalocytes 1+ Acanthocytes 1+ 1+ Sodium Level 139 MMOL/L (136-145) Potassium Level 3.7 MMOL/L (3.5-5.1) Chloride Level 105 MMOL/L (98-107) Carbon Dioxide Level 21 MMOL/L (21-32) Anion Gap 13 mmol/L (5-15) Blood Urea Nitrogen 16 mg/dL (7-18) Creatinine 0.6 MG/DL (0.55-1.30) Estimat Glomerular Filtration Rate mL/min (>60) Glucose Level 133 MG/DL (74-106) H Calcium Level 8.3 MG/DL (8.5-10.1) L Total Bilirubin 0.4 MG/DL (0.2-1.0) Aspartate Amino Transf (AST/SGOT) 21 U/L (15-37) Alanine Aminotransferase (ALT/SGPT) 23 U/L (12-78) Alkaline Phosphatase 101 U/L (46-116) Total Creatine Kinase 37 U/L (26-308) Creatine Kinase MB 0.5 NG/ML (0.0-3.6) Creatine Kinase MB Relative Index 1.3 Troponin I 0.008 ng/mL (0.000-0.056) Total Protein 6.8 G/DL (6.4-8.2) Albumin 3.1 G/DL (3.4-5.0) L Globulin 3.7 g/dL Albumin/Globulin Ratio 0.8 (1.0-2.7) L Lipase 97 U/L (73-393) Urine Color Jennyfer Urine Appearance Slightly cloudy Urine pH 5 (4.5-8.0) Urine Specific [place] 1.025 (1.005-1.035) Urine Protein 2+ (NEGATIVE) H Urine Glucose (UA) Negative (NEGATIVE) Urine Ketones 1+ (NEGATIVE) H Urine Blood 1+ (NEGATIVE) H Urine Nitrite Negative (NEGATIVE) Urine Bilirubin 2+ (NEGATIVE) H Urine Ictotest Positive (NEGATIVE) Urine Urobilinogen 4 MG/DL (0.0-1.0) H Urine Leukocyte Esterase 2+ (NEGATIVE) H Urine RBC 0-2 /HPF (0 - 2) Urine WBC 15-20 /HPF (0 - 2) H Urine Squamous Epithelial Cells Moderate /LPF (NONE/OCC) H Urine Bacteria Few /HPF (NONE) Hypochromasia 1+ Schistocytes 1+ Height (Feet): 5 Weight (Pounds): 102 Medications Current Medications Medications (Trade) Dose Ordered Sig/Bre Route PRN Reason Start Time Stop Time Status Last Admin Dose Admin Acetaminophen (Tylenol) 650 mg Q4H PRN ORAL fever (temp>100.5F) 01/28/18 07:15 02/27/18 07:14 Al Hydroxide/Mg Hydroxide (Mylanta II) 30 ml Q6H PRN ORAL dyspepsia 01/28/18 07:15 02/27/18 07:14 Dextrose (Dextrose 50%) 25 ml Q30M PRN IV Hypoglycemia 01/28/18 07:15 02/27/18 07:14 Dextrose (Dextrose 50%) 50 ml Q30M PRN IV Hypoglycemia 01/28/18 07:15 02/27/18 07:14 Dextrose/Sodium Chloride 1,000 ml @ 75 mls/hr [id number] IV 01/28/18 09:00 02/27/18 08:59 01/28/18 10:32 Diphenhydramine HCl (Benadryl) 25 mg Q6H PRN ORAL Itching/Pruritis 01/28/18 07:15 02/27/18 07:14 Lorazepam (Ativan 2mg/ml 1ml) 1 mg Q4H PRN IV agitation 01/28/18 07:15 02/04/18 07:14 Metoclopramide HCl (Reglan) 10 mg Q6H PRN IVP severe nausea 01/28/18 07:15 02/27/18 07:14 Morphine Sulfate (Morphine Sulfate) 2 mg Q4H PRN IVP severe pain (Pain Scale 7-10) 01/28/18 07:15 02/04/18 07:14 Nitroglycerin (Ntg) 0.4 mg Q5M X 3 DOSES PRN SL Prn Chest Pain 01/28/18 07:15 02/27/18 07:14 Ondansetron HCl (Zofran) 4 mg Q6H PRN IVP Nausea & Vomiting 01/28/18 07:15 02/27/18 07:14 01/28/18 09:12 Pantoprazole 80 mg/Sodium Chloride 250 ml @ 25 mls/hr Q10H IV 01/28/18 10:00 02/27/18 09:59 Polyethylene Glycol (Miralax) 17 gm HSPRN PRN ORAL Constipation 01/28/18 07:15 02/27/18 07:14 Promethazine HCl (Phenergan) 12.5 mg Q6H PRN IM refractory N/V 01/28/18 09:15 02/27/18 09:14 Temazepam (Restoril) 15 mg HSPRN PRN ORAL Insomnia 01/28/18 20:00 02/04/18 19:59 Assessment/Plan Problem List: (1) Anemia ICD Codes: D64.9 - Anemia, unspecified SNOMED: 253503451 (2) Abdominal pain ICD Codes: R10.9 - Unspecified abdominal pain SNOMED: 39116578 (3) Choledocholithiasis ICD Codes: K80.50 - Calculus of bile duct without cholangitis or cholecystitis without obstruction SNOMED: 811471535 Assessment/Plan prbc prn GI evaluation symptomatic treatment iv fluids check electrolytes. Shanda Carter MD Jan 28, 2018 12:32
[2018-01-28] MEDS: Pantoprazole 80 MG in NS 250 ML IV SCH ×2 (13:31→20:00)
--- NOTE | 2018-01-28 13:55 | Consultation ---
History of Present Illness General Date patient seen: Jan 28, 2018 Chief Complaint: Abdominal Pain Referring physician: IMELDA CHARLES Reason for Consultation: UGIB Present Illness HPI 82 year old female presents with complaints of nausea and vomiting and abd pain the pt has cognitive impairment and anxiety. the pt is cooperative and not psychotic Allergies: Coded Allergies: NO KNOWN ALLERGIES (Unverified Allergy, Unknown, 04/09/15) Medication History Scheduled No Known Medications* (NKM - No Known Medications*), 0 ., (Reported) Patient History History Provided By: Patient Healthcare decision maker self and daughter Resuscitation status Full Code Advanced Directive on File No Past Medical/Surgical History Past Medical/Surgical History: (1) Metastasis (2) Choledocholithiasis (3) Anemia (4) Abdominal pain (5) Vomiting (6) GI bleed (7) Abdominal gas pain Review of Systems Psychiatric: Reports: prior hx, anxiety, depressed feelings, emotional problems Physical Exam General Appearance: no apparent distress, alert Last 24 Hour Vital Signs Date Time Temp Pulse Resp B/P (MAP) Pulse Ox O2 Delivery O2 Flow Rate FiO2 01/28/18 12:09 70 14 98 01/28/18 12:08 72 14 98 01/28/18 11:48 69 14 133/76 98 Nasal Cannula 3 01/28/18 11:40 69 14 133/76 98 Nasal Cannula 3 01/28/18 11:22 70 14 128/74 98 Nasal Cannula 3 01/28/18 11:17 70 14 122/72 98 Nasal Cannula 3 01/28/18 11:12 98.5 72 14 119/69 98 Nasal Cannula 3 01/28/18 10:30 Room Air 01/28/18 10:30 Room Air 01/28/18 10:00 97.9 70 18 112/67 (82) 97 01/28/18 09:39 97.6 78 21 109/67 100 Room Air 01/28/18 09:22 97.6 01/28/18 09:20 97.6 78 21 109/67 100 Room Air 01/28/18 09:02 97.6 01/28/18 08:50 97.6 74 25 114/65 100 Room Air 01/28/18 08:35 97.6 76 18 110/57 100 Room Air 01/28/18 08:20 97.9 74 18 108/62 100 Room Air 01/28/18 07:18 98.0 01/28/18 07:09 98.0 60 20 96/60 100 Room Air 01/28/18 05:32 76 23 01/28/18 05:32 97.4 76 23 108/69 100 Room Air 01/28/18 04:38 97.3 60 18 118/62 98 Room Air Intake and Output 01/27/18 01/28/18 19:00 07:00 Intake Total 500 ml Balance 500 ml Intake IV Total 500 ml Laboratory Tests Test 01/28/18 04:45 01/28/18 05:07 01/28/18 06:30 White Blood Count 12.0 K/UL (4.8-10.8) H 17.0 K/UL (4.8-10.8) H Red Blood Count 2.98 M/UL (4.20-5.40) L 2.96 M/UL (4.20-5.40) L Hemoglobin 5.2 G/DL (12.0-16.0) *L 5.2 G/DL (12.0-16.0) *L Hematocrit 17.5 % (37.0-47.0) L 17.6 % (37.0-47.0) L Mean Corpuscular Volume 59 FL (80-99) L 59 FL (80-99) L Mean Corpuscular Hemoglobin 17.4 PG (27.0-31.0) L 17.6 PG (27.0-31.0) L Mean Corpuscular Hemoglobin Concent 29.6 G/DL (32.0-36.0) L 29.6 G/DL (32.0-36.0) L Red Cell Distribution Width 14.7 % (11.6-14.8) 15.0 % (11.6-14.8) H Platelet Count 373 K/UL (150-450) 355 K/UL (150-450) Mean Platelet Volume 6.6 FL (6.5-10.1) 6.1 FL (6.5-10.1) L Neutrophils (%) (Auto) % (45.0-75.0) % (45.0-75.0) Lymphocytes (%) (Auto) % (20.0-45.0) % (20.0-45.0) Monocytes (%) (Auto) % (1.0-10.0) % (1.0-10.0) Eosinophils (%) (Auto) % (0.0-3.0) % (0.0-3.0) Basophils (%) (Auto) % (0.0-2.0) % (0.0-2.0) Differential Total Cells Counted 100 100 Neutrophils % (Manual) 89 % (45-75) H 93 % (45-75) H Lymphocytes % (Manual) 8 % (20-45) L 3 % (20-45) L Monocytes % (Manual) 1 % (1-10) 0 % (1-10) L Eosinophils % (Manual) 1 % (0-3) 2 % (0-3) Basophils % (Manual) 0 % (0-2) 0 % (0-2) Band Neutrophils 1 % (0-8) 2 % (0-8) Nucleated Red Blood Cells 1 /100 WBC Platelet Estimate Adequate Adequate Platelet Morphology Normal Normal Anisocytosis 2+ 2+ Microcytosis 2+ 1+ Ovalocytes 1+ Acanthocytes 1+ 1+ Sodium Level 139 MMOL/L (136-145) Potassium Level 3.7 MMOL/L (3.5-5.1) Chloride Level 105 MMOL/L (98-107) Carbon Dioxide Level 21 MMOL/L (21-32) Anion Gap 13 mmol/L (5-15) Blood Urea Nitrogen 16 mg/dL (7-18) Creatinine 0.6 MG/DL (0.55-1.30) Estimat Glomerular Filtration Rate mL/min (>60) Glucose Level 133 MG/DL (74-106) H Calcium Level 8.3 MG/DL (8.5-10.1) L Total Bilirubin 0.4 MG/DL (0.2-1.0) Aspartate Amino Transf (AST/SGOT) 21 U/L (15-37) Alanine Aminotransferase (ALT/SGPT) 23 U/L (12-78) Alkaline Phosphatase 101 U/L (46-116) Total Creatine Kinase 37 U/L (26-308) Creatine Kinase MB 0.5 NG/ML (0.0-3.6) Creatine Kinase MB Relative Index 1.3 Troponin I 0.008 ng/mL (0.000-0.056) Total Protein 6.8 G/DL (6.4-8.2) Albumin 3.1 G/DL (3.4-5.0) L Globulin 3.7 g/dL Albumin/Globulin Ratio 0.8 (1.0-2.7) L Lipase 97 U/L (73-393) Urine Color Jennyfer Urine Appearance Slightly cloudy Urine pH 5 (4.5-8.0) Urine Specific [place] 1.025 (1.005-1.035) Urine Protein 2+ (NEGATIVE) H Urine Glucose (UA) Negative (NEGATIVE) Urine Ketones 1+ (NEGATIVE) H Urine Blood 1+ (NEGATIVE) H Urine Nitrite Negative (NEGATIVE) Urine Bilirubin 2+ (NEGATIVE) H Urine Ictotest Positive (NEGATIVE) Urine Urobilinogen 4 MG/DL (0.0-1.0) H Urine Leukocyte Esterase 2+ (NEGATIVE) H Urine RBC 0-2 /HPF (0 - 2) Urine WBC 15-20 /HPF (0 - 2) H Urine Squamous Epithelial Cells Moderate /LPF (NONE/OCC) H Urine Bacteria Few /HPF (NONE) Hypochromasia 1+ Schistocytes 1+ Height (Feet): 5 Weight (Pounds): 102 Medications Current Medications Medications (Trade) Dose Ordered Sig/Bre Route PRN Reason Start Time Stop Time Status Last Admin Dose Admin Acetaminophen (Tylenol) 650 mg Q4H PRN ORAL fever (temp>100.5F) 01/28/18 07:15 02/27/18 07:14 Al Hydroxide/Mg Hydroxide (Mylanta II) 30 ml Q6H PRN ORAL dyspepsia 01/28/18 07:15 02/27/18 07:14 Dextrose (Dextrose 50%) 25 ml Q30M PRN IV Hypoglycemia 01/28/18 07:15 02/27/18 07:14 Dextrose (Dextrose 50%) 50 ml Q30M PRN IV Hypoglycemia 01/28/18 07:15 02/27/18 07:14 Dextrose/Sodium Chloride 1,000 ml @ 75 mls/hr [id number] IV 01/28/18 09:00 02/27/18 08:59 01/28/18 10:32 Diphenhydramine HCl (Benadryl) 25 mg Q6H PRN ORAL Itching/Pruritis 01/28/18 07:15 02/27/18 07:14 Lorazepam (Ativan 2mg/ml 1ml) 1 mg Q4H PRN IV agitation 01/28/18 07:15 02/04/18 07:14 Metoclopramide HCl (Reglan) 10 mg Q6H PRN IVP severe nausea 01/28/18 07:15 02/27/18 07:14 Morphine Sulfate (Morphine Sulfate) 2 mg Q4H PRN IVP severe pain (Pain Scale 7-10) 01/28/18 07:15 02/04/18 07:14 Nitroglycerin (Ntg) 0.4 mg Q5M X 3 DOSES PRN SL Prn Chest Pain 01/28/18 07:15 02/27/18 07:14 Ondansetron HCl (Zofran) 4 mg Q6H PRN IVP Nausea & Vomiting 01/28/18 07:15 02/27/18 07:14 01/28/18 09:12 Pantoprazole 80 mg/Sodium Chloride 250 ml @ 25 mls/hr Q10H IV 01/28/18 10:00 02/27/18 09:59 01/28/18 13:31 Polyethylene Glycol (Miralax) 17 gm HSPRN PRN ORAL Constipation 01/28/18 07:15 02/27/18 07:14 Promethazine HCl (Phenergan) 12.5 mg Q6H PRN IM refractory N/V 01/28/18 09:15 02/27/18 09:14 Temazepam (Restoril) 15 mg HSPRN PRN ORAL Insomnia 01/28/18 20:00 02/04/18 19:59 Assessment/Plan Status: stable Assessment/Plan anxiety d/o cognitive impairment ativan prn provided ro/Philip Ross MD Jan 28, 2018 13:55
[2018-01-28 13:59] LABS: HEMOGLOBIN 8.5 G/DL (12.0-16.0); MEAN CORPUSCULAR VOLUME 67 FL (80-99); PLATELET COUNT 349 K/UL (150-450); RED BLOOD COUNT 4.05 M/UL (4.20-5.40); RED CELL DISTRIBUTION WIDTH 23.4 % (11.6-14.8)
[2018-01-28 14:10] LABS: WHITE BLOOD COUNT 23.6 K/UL (4.8-10.8)
[2018-01-28 14:14] LABS: INR 1.1 (0.9-1.1)
--- NOTE | 2018-01-28 16:38 | Diagnostic Imaging Report ---
Indication: Reason For Exam: ABD PAIN Technique: Coronal and axial single shot fast spin-echo breath-hold, axial fat saturated T2 FRFSE, 2-D thick slab MRCP, AXIAL 2-D FIESTA fat saturated, axial 3-D dual echo breath-hold, water weighted axial and coronal LAVA FLEX, revealed 3-D MRCP images were obtained of the abdomen. MIP reconstructions were generated of the bile ducts Comparison: Abdominal ultrasound and abdominal pelvic CT scan of earlier the same day Findings: Multiple low signal gallstones are seen layering dependently in the gallbladder just below the gallbladder neck. The gallbladder is distended but there is no gallbladder wall thickening or pericholecystic fluid. The common bile duct is mildly distended, demonstrates multiple low signal filling defects consistent with choledocholithiasis described on recent CT scan. The common bile duct measures up to 12 mm in diameter. Small focus of signal void is seen adjacent to the periampullary common bile duct, and could be related to a gas bubble seen in the same area on recent CT scan. The liver is unremarkable except for some very subtle increased T2 signal laterally in segment 8 in the area of the previously diagnosed liver abscess. The pancreas, spleen, adrenals are unremarkable. There are tiny bilateral renal cysts. Left ovarian cyst described on CT is seen on the coronal images. Lumbar scoliotic deformity is demonstrated. There is trace pleural fluid bilaterally. Stool and fluid-filled mildly distended descending colon, stool and fluid-filled nondistended distal colon is demonstrated, also reported on recent CT Impression: Cholelithiasis, also demonstrated on previous CT scan Choledocholithiasis and dilated common bile duct, also described on prior CT scan Minimal periarticular signal void, could indicate suspected periampullary gas seen on prior CT, versus tiny duodenal diverticulum Subtle increased T2 signal laterally in segment 8 of the liver, probably related to previously demonstrated liver abscess Left ovarian cyst, also described on prior CT scan. Tiny bilateral renal cysts Stool and fluid-filled colon, also previously reported
--- NOTE | 2018-01-28 16:40 | Diagnostic Imaging Report ---
Indication: Abdominal pain Technique: Siu-scale and duplex images of the upper abdomen were obtained Comparison: MRCP and CT abdomen and pelvis of the same day Findings: Gallbladder demonstrates difficult to visualize small calculi and sludge at or near the gallbladder neck. No gallbladder wall thickening nor pericholecystic fluid Sonographic Heath's sign is negative. Common bile duct measures 9 mm in diameter. It contains small calculi No intrahepatic biliary ductal dilatation. Liver demonstrates normal echogenicity, no focal abnormality. Portal vein and hepatic veins are patent. Pancreas is unremarkable. Spleen is unremarkable. Left kidney measures 9.7 cm in length. Right kidney measures 9.9 cm length. Both kidneys demonstrate normal echogenicity. There is no hydronephrosis. Small left renal cyst is demonstrated . Non-aneurysmal abdominal aorta . Impression: Cholelithiasis, barely visible on sonography but definitely present on prior CT and MRCP Choledocholithiasis, also previously described Incidental finding small left renal cyst
--- NOTE | 2018-01-28 17:30 | History & Physical ---
History and Physical History & Physicial Mauricio Lopez MD Jan 28, 2018 17:30
[2018-01-28] MEDS: D5 1/2NS 1,000 ML IV SCH (17:51)
[2018-01-28] MEDS: Morphine Sulfate 2mg/ml Inj IVP PRN (20:12)
--- NOTE | 2018-01-28 21:30 | Procedure Note ---
DATE OF PROCEDURE: 01/28/2018 SURGEON: Dale Ramirez M.D. PROCEDURE: Upper endoscopy with biopsy. ANESTHESIA: Per SWITCH INSPECTOR, Kellen Tarrillion. INSTRUMENT: Olympus adult flexible upper endoscope. INDICATION: Upper GI bleeding. REASON FOR PROCEDURE: The procedure, risks, benefits, and possible consequences, including hemorrhage, aspiration, perforation and infection, and alternative treatments, were explained to the patient/legal guardian by Dr. Dale Ramirez and the patient/legal guardian understood and accepted these risks. DESCRIPTION OF PROCEDURE: After informed consent was obtained and the patient was adequately sedated, Olympus upper endoscope was advanced from mouth into the second portion of the duodenum and retroflexion was performed in the stomach. The patient had some diffuse gastritis. Random biopsy from antrum was obtained to rule out H. pylori infection. There is no evidence of any active upper GI bleeding. No evidence of any esophagitis. No evidence of any ulceration in the stomach. No blood seen in the duodenal bulb nor in the second portion of the duodenum. At this time, the upper endoscope was retrieved and the procedure was terminated. SUMMARY OF FINDINGS: Gastritis, status post biopsy, otherwise normal upper endoscopic examination. RECOMMENDATIONS: 1. Follow up biopsies and treat accordingly. 2. Given hemoglobin of 5 and questionable gastrointestinal bleeding, most probably the patient will need a colonoscopy on Wednesday. We will discuss with the family and arrange if they agree. I want to thank, Dr. Mauricio Lopez, for this kind referral. Dale Ramirez M.D. DR: SONAL JOB#: [id number] CC: Mauricio Lopez M.D.; Fax#: [phone]
--- NOTE | 2018-01-28 22:26 | Consultation ---
Consult Note Consult Note [id number] Jose Lin MD Jan 28, 2018 22:26
--- NOTE | 2018-01-28 22:30 | History and Physical Report ---
DATE OF ADMISSION: 01/28/2018 CHIEF COMPLAINT: Nausea, vomiting, and abdominal pain. HISTORY OF PRESENT ILLNESS: This is an 82-year-old female with unknown past medical history and past surgical history, who presented to the hospital complaining about abdominal pain associated with nausea and vomiting, and the patient said the abdominal pain is mostly in the mid abdomen area, complaining about the melena. The patient subsequently was noted hemoglobin of 5.2 and the patient was admitted to the hospital for further workup and possible gastrointestinal bleed. PAST MEDICAL HISTORY AND PAST SURGICAL HISTORY: As above, history of unknown. MEDICATIONS: Unknown. ALLERGIES: No known drug allergies. SOCIAL HISTORY: No smoking, alcohol, or drugs at this time. History is very limited, secondary to the patient's status, language barrier, and the patient a poor historian. No family member was present. REVIEW OF SYSTEMS: Unable to obtain. PHYSICAL EXAMINATION: VITAL SIGNS: On admission, temperature 97.3, pulse of 60, respirations 18, and blood pressure 118/62. GENERAL: The patient is awake, responsive, malnutrition. HEAD AND NECK: Pupils are equal and reactive to light. Extraocular movements are intact. Neck was supple. No JVD. LUNGS: Good air entry. No wheezing or rales. HEART: S1, S2. Regular rhythm. No gallops. ABDOMEN: Soft. Tender on deep palpation. No rebound tenderness. No fluid shift. EXTREMITIES: No cyanosis, clubbing, or edema. NEUROLOGIC: Cranial nerves II through XII are grossly intact. Motor is 5/5 in all the extremities. Gait was not assessed due to the patient's status. LABORATORY AND DIAGNOSTIC DATA: Imaging on admission, CT of the abdomen pelvic confirmed the patient has cholelithiasis with choledocholithiasis, somewhat unusual as no evidence of the such was seen and on the prior examination 04/2015, small bubbles of gas seen in the downstream common bile duct at the level of the ampulla, extensive colonic stool, some liquids with mild distention proximally, but no evidence of the downstream obstruction was evident, no evidence of the small bowel obstruction, however, small bowel loops are somewhat prominent and contain a small bowel fecal indicating stasis of the content, vague area of the low attenuation of the right hepatic lobe presumably sequela of the previous demonstration of the liver abscess, 45 mm left ovarian cyst unchanged, bilateral pulmonary dependent atelectasis, cardiomegaly. The patient's laboratory on admission, WBC of 12, hemoglobin of 5.2, hematocrit 17, and platelets is 373,000. Sodium 139, potassium 3.7, chloride 105, bicarbonate 21, BUN 16, creatinine 0.6, and calcium is 8.3. Troponin is 0.008. PT of 11, INR 1.1, and PTT of 27. UA is +2 protein, +1, ketones, negative nitrites,+2 bilirubin, 10 to 15 WBC, and moderate epithelial cells. ASSESSMENT: 1. Abdominal pain associated with severe anemia, possibly due to the gastrointestinal bleed. 2. Severe dehydration and malnutrition. 3. Choledocholithiasis. PLAN: Admit the patient to telemetry. We will follow up with Dr. Ramirez, GI, scheduled for esophagogastroduodenoscopy and p.o. PPI drip, Protonix drip. We will follow up with laboratory. Code Status at this time Full Code. DVT prophylaxis is SCD. Mauricio Lopez M.D. DR: JEANETTE JOB#: [id number] CC:
[2018-01-28] MEDS: Cefepime HCl 2 GM in D5W 55 ML IVPB SCH (23:28)
[2018-01-29] VITALS (9 sets, daily range): BP systolic 94–112; BP diastolic 58–68
--- NOTE | 2018-01-29 | Consultation ---
DATE OF CONSULTATION: 01/28/2018 INFECTIOUS DISEASE CONSULTATION CONSULTING PHYSICIAN: Jose Lin M.D. REFERRING PHYSICIAN: Mauricio Lopez M.D. and Shanda Carter M.D. REASON FOR CONSULTATION: Evaluation of the patient for leukocytosis and DVT, possible sepsis, antibiotic management. HISTORY OF PRESENT ILLNESS: The patient is an 82-year-old female, Sinhala speaking, who was admitted to this medical center for nausea, vomiting, and abdominal pain, and history of melena reportedly. The patient was found to have hemoglobin of 5.2, underwent upper endoscopy that showed gastritis and also had biopsy with plan of colonoscopy on Wednesday. The patient was found to have leukocytosis. Infectious Disease consultation has been requested for further evaluation of the patient and antibiotic management. PAST MEDICAL HISTORY: Hypertension. ALLERGIES: No known drug allergies. SOCIAL HISTORY: The patient lives at home. FAMILY HISTORY: Not contributing. REVIEW OF SYSTEMS: Much of the information I was able to gather mentioned above. MEDICATIONS: Currently off of antibiotics. The patient received one dose of cefepime. PHYSICAL EXAMINATION: VITAL SIGNS: Temperature 98 degrees, pulse 86, respiratory rate 18, and blood pressure 113/63. HEENT: Pale conjunctivae. No icterus. NECK: No lymphadenopathy. CHEST: Clear. HEART: S1, S2. ABDOMEN: Soft, nontender. EXTREMITIES: No cyanosis at this time. NEUROLOGIC: Awake. LABORATORY AND DIAGNOSTIC DATA: Labs, white blood cells 23, hemoglobin 8.5, and platelets 349,000. UA 15 to 20 white blood cells. BUN 16, creatinine 0.6. ALT, AST unremarkable. Alkaline phosphatase 101. MRCP, cholelithiasis common bile duct. CT of the abdomen showed cholelithiasis and choledocholithiasis. ASSESSMENT: 1. Leukocytosis due to acute stress, gastrointestinal bleed. 2. Rule out bacteremia. 3. common bile duct stone. We will cover the patient empirically with antibiotics for possible cholangitis, however, this is less likely in view of unremarkable labs and lack of fever. PLAN: 1. We will continue the patient on cefepime and Flagyl. 2. Monitor CBC. 3. Monitor BMP. 4. We will follow GI recommendations and common plan of colonoscopy on Wednesday. 5. Monitor the patient's laboratories and cultures (blood, urine). 6. Based on the patient's labs, we will do further recommendations. Thank you for this consultation. I will follow the patient with you. Jose Lin M.D. DR: GUILLERMO JOB#: [id number] CC:
[2018-01-29] MEDS: Pantoprazole 80 MG in NS 250 ML IV SCH ×3 (00:36→20:10)
[2018-01-29] MEDS: D5 1/2NS 1,000 ML IV SCH ×2 (06:56→20:11)
[2018-01-29 07:44] LABS: LACTATE DEHYDROGENASE 180 U/L (81-234)
[2018-01-29 07:46] LABS: HEMOGLOBIN 7.4 G/DL (12.0-16.0); MEAN CORPUSCULAR VOLUME 66 FL (80-99); PLATELET COUNT 306 K/UL (150-450); RED BLOOD COUNT 3.65 M/UL (4.20-5.40); RED CELL DISTRIBUTION WIDTH 22.7 % (11.6-14.8); WHITE BLOOD COUNT 11.4 K/UL (4.8-10.8)
[2018-01-29 07:47] LABS: ALANINE AMINOTRANSFERASE 15 U/L (12-78); ALBUMIN 2.5 G/DL (3.4-5.0); ALBUMIN/GLOBULIN RATIO 0.8 (1.0-2.7); ALKALINE PHOSPHATASE 81 U/L (46-116); AMYLASE 26 U/L (25-115); ANION GAP 9 mmol/L (5-15); ASPARTATE AMINO TRANSFERASE 17 U/L (15-37); BILIRUBIN,TOTAL 0.6 MG/DL (0.2-1.0); BLOOD UREA NITROGEN 20 mg/dL (7-18); CALCIUM 7.6 MG/DL (8.5-10.1); CARBON DIOXIDE 23 MMOL/L (21-32); CHLORIDE 107 MMOL/L (98-107); CREATININE 0.6 MG/DL (0.55-1.30); POTASSIUM 3.5 MMOL/L (3.5-5.1); SODIUM 139 MMOL/L (136-145)
[2018-01-29 08:18] LABS: % IRON SATURATION 3 % (15-50); IRON 9 ug/dL (50-175); TOTAL IRON BINDING CAPACITY 331 ug/dL (250-450)
[2018-01-29 08:30] LABS: INR 1.2 (0.9-1.1)
--- NOTE | 2018-01-29 08:59 | General Progress Note ---
Assessment/Plan Problem List: (1) GI bleed ICD Codes: K92.2 - Gastrointestinal hemorrhage, unspecified SNOMED: 56206716 Qualifiers: Qualified Codes: K92.2 - Gastrointestinal hemorrhage, unspecified (2) Anemia ICD Codes: D64.9 - Anemia, unspecified SNOMED: 301562839 Qualifiers: Qualified Codes: D64.9 - Anemia, unspecified (3) Choledocholithiasis ICD Codes: K80.50 - Calculus of bile duct without cholangitis or cholecystitis without obstruction SNOMED: 136501411 Assessment/Plan no recurrent GIB neg EGD yesterday transfuse one unit plan colonoscopy on Wednesday ERCP on hold given normal LFTS repeat cbs and CMP in am Subjective ROS Limited/Unobtainable: No Allergies: Coded Allergies: NO KNOWN ALLERGIES (Unverified Allergy, Unknown, 04/09/15) Objective Last 24 Hour Vital Signs Date Time Temp Pulse Resp B/P (MAP) Pulse Ox O2 Delivery O2 Flow Rate FiO2 01/29/18 08:00 98.4 68 18 102/60 (74) 94 01/29/18 04:00 98.3 72 18 95/60 (72) 98 01/29/18 00:00 98.1 75 18 94/58 (70) 97 01/28/18 21:00 Nasal Cannula 2.0 01/28/18 20:00 97.6 73 18 117/63 (81) 100 01/28/18 17:30 98.3 73 18 113/63 (80) 99 01/28/18 16:53 98.0 01/28/18 16:00 98.0 83 18 101/63 (76) 97 01/28/18 12:09 70 14 98 01/28/18 12:08 72 14 98 01/28/18 11:59 69 01/28/18 11:48 69 14 133/76 98 Nasal Cannula 3 01/28/18 11:40 69 14 133/76 98 Nasal Cannula 3 01/28/18 11:22 70 14 128/74 98 Nasal Cannula 3 01/28/18 11:17 70 14 122/72 98 Nasal Cannula 3 01/28/18 11:12 98.5 72 14 119/69 98 Nasal Cannula 3 01/28/18 10:30 Room Air 01/28/18 10:30 Room Air 01/28/18 10:00 97.9 70 18 112/67 (82) 97 01/28/18 09:39 97.6 78 21 109/67 100 Room Air 01/28/18 09:22 97.6 01/28/18 09:20 97.6 78 21 109/67 100 Room Air 01/28/18 09:02 97.6 Intake and Output 01/28/18 01/29/18 19:00 07:00 Intake Total 100 ml Balance 100 ml Intake IV Total 100 ml # Voids 4 # Bowel Movements 2 1 Laboratory Tests 01/28/18 13:50: White Blood Count 23.6*H, Red Blood Count 4.05L, Hemoglobin 8.5#L, Hematocrit 27.0#L, Mean Corpuscular Volume 67#L, Mean Corpuscular Hemoglobin 21.1L, Mean Corpuscular Hemoglobin Concent 31.6L, Red Cell Distribution Width 23.4H, Platelet Count 349, Mean Platelet Volume 6.4L, Neutrophils (%) (Auto) , Lymphocytes (%) (Auto) , Monocytes (%) (Auto) , Eosinophils (%) (Auto) , Basophils (%) (Auto) , Differential Total Cells Counted 100, Neutrophils % ( Manual) 94H, Lymphocytes % (Manual) 4L, Monocytes % (Manual) 2, Eosinophils % ( Manual) 0, Basophils % (Manual) 0, Band Neutrophils 0, Platelet Estimate Adequate, Platelet Morphology Normal, Anisocytosis 2+, Microcytosis 1+, Macrocytosis 1+, Ovalocytes 1+, Acanthocytes 1+, Schistocytes 1+, Prothrombin Time 11.2, Prothromb Time International Ratio 1.1, Activated Partial Thromboplast Time 27 01/29/18 06:30: Activated Partial Thromboplast Time 32 01/29/18 06:35: White Blood Count 11.4#H, Red Blood Count 3.65L, Hemoglobin 7.4L, Hematocrit 24.0L, Mean Corpuscular Volume 66L, Mean Corpuscular Hemoglobin 20.3L, Mean Corpuscular Hemoglobin Concent 30.8L, Red Cell Distribution Width 22.7H, Platelet Count 306, Mean Platelet Volume 6.4L, Neutrophils (%) (Auto) , Lymphocytes (%) (Auto) , Monocytes (%) (Auto) , Eosinophils (%) (Auto) , Basophils (%) (Auto) , Neutrophils % (Manual) [Pending], Lymphocytes % (Manual) [Pending], Platelet Estimate [Pending], Platelet Morphology [Pending], Erythrocyte Sedimentation Rate [Pending], Reticulocyte Count [Pending], Sodium Level 139, Potassium Level 3.5, Chloride Level 107, Carbon Dioxide Level 23, Anion Gap 9, Blood Urea Nitrogen 20H, Creatinine 0.6, Estimat Glomerular Filtration Rate , Glucose Level 85, Calcium Level 7.6L, Iron Level 9L, Total Iron Binding Capacity 331, Percent Iron Saturation 3L, Unsaturated Iron Binding 322, Total Bilirubin 0.6, Aspartate Amino Transf (AST/SGOT) 17, Alanine Aminotransferase (ALT/SGPT) 15, Alkaline Phosphatase 81, Lactate Dehydrogenase 180, Total Protein 5.6L, Albumin 2.5L, Globulin 3.1, Albumin/Globulin Ratio 0.8L , Amylase Level 26, Lipase 38L, Carcinoembryonic Antigen [Pending], Vitamin B12 Level 348, Folate 3.3L 01/29/18 07:30: Prothrombin Time 12.6H, Prothromb Time International Ratio 1.2H Height (Feet): 5 Weight (Pounds): 102 General Appearance: no apparent distress EENT: normal ENT inspection Neck: supple Cardiovascular: normal peripheral pulses Respiratory/Chest: decreased breath sounds Abdomen: normal bowel sounds, non tender, soft Extremities: non-tender Dale Ramirez MD Jan 29, 2018 08:59
--- NOTE | 2018-01-29 10:04 | Infectious Diseases Prog Note ---
Assessment/Plan Assessment/Plan ASSESSMENT: Leukocytosis (due to acute stress, gastrointestinal bleed) Rule out bacteremia. common bile duct stone Calculus of bile duct without cholangitis or cholecystitis without obstruction PLAN: continue the patient on cefepime and Flagyl d# 2 ( will stop AB Rx soon if stable, afebrile and Cx neg) Monitor CBC. Monitor BMP. follow GI recommendations and common plan of colonoscopy on Wednesday. Monitor cultures (blood, urine) GI following Subjective Allergies: Coded Allergies: NO KNOWN ALLERGIES (Unverified Allergy, Unknown, 04/09/15) Subjective no new complain Objective Vital Signs Last 24 Hour Vital Signs Date Time Temp Pulse Resp B/P (MAP) Pulse Ox O2 Delivery O2 Flow Rate FiO2 01/29/18 08:00 98.4 68 18 102/60 (74) 94 01/29/18 04:00 98.3 72 18 95/60 (72) 98 01/29/18 00:00 98.1 75 18 94/58 (70) 97 01/28/18 21:00 Nasal Cannula 2.0 01/28/18 20:00 97.6 73 18 117/63 (81) 100 01/28/18 17:30 98.3 73 18 113/63 (80) 99 01/28/18 16:53 98.0 01/28/18 16:00 98.0 83 18 101/63 (76) 97 01/28/18 12:09 70 14 98 01/28/18 12:08 72 14 98 01/28/18 11:59 69 01/28/18 11:48 69 14 133/76 98 Nasal Cannula 3 01/28/18 11:40 69 14 133/76 98 Nasal Cannula 3 01/28/18 11:22 70 14 128/74 98 Nasal Cannula 3 01/28/18 11:17 70 14 122/72 98 Nasal Cannula 3 01/28/18 11:12 98.5 72 14 119/69 98 Nasal Cannula 3 01/28/18 10:30 Room Air 01/28/18 10:30 Room Air Height (Feet): 5 Weight (Pounds): 102 HEENT: anicteric Respiratory/Chest: no respiratory distress Cardiovascular: regular rhythm Abdomen: no organomegaly Laboratory Tests Test 01/28/18 13:50 01/29/18 06:30 01/29/18 06:35 01/29/18 07:30 White Blood Count 23.6 K/UL (4.8-10.8) *H 11.4 K/UL (4.8-10.8) #H Red Blood Count 4.05 M/UL (4.20-5.40) L 3.65 M/UL (4.20-5.40) L Hemoglobin 8.5 G/DL (12.0-16.0) #L 7.4 G/DL (12.0-16.0) L Hematocrit 27.0 % (37.0-47.0) #L 24.0 % (37.0-47.0) L Mean Corpuscular Volume 67 FL (80-99) #L 66 FL (80-99) L Mean Corpuscular Hemoglobin 21.1 PG (27.0-31.0) L 20.3 PG (27.0-31.0) L Mean Corpuscular Hemoglobin Concent 31.6 G/DL (32.0-36.0) L 30.8 G/DL (32.0-36.0) L Red Cell Distribution Width 23.4 % (11.6-14.8) H 22.7 % (11.6-14.8) H Platelet Count 349 K/UL (150-450) 306 K/UL (150-450) Mean Platelet Volume 6.4 FL (6.5-10.1) L 6.4 FL (6.5-10.1) L Neutrophils (%) (Auto) % (45.0-75.0) % (45.0-75.0) Lymphocytes (%) (Auto) % (20.0-45.0) % (20.0-45.0) Monocytes (%) (Auto) % (1.0-10.0) % (1.0-10.0) Eosinophils (%) (Auto) % (0.0-3.0) % (0.0-3.0) Basophils (%) (Auto) % (0.0-2.0) % (0.0-2.0) Differential Total Cells Counted 100 Neutrophils % (Manual) 94 % (45-75) H Pending Lymphocytes % (Manual) 4 % (20-45) L Pending Monocytes % (Manual) 2 % (1-10) Eosinophils % (Manual) 0 % (0-3) Basophils % (Manual) 0 % (0-2) Band Neutrophils 0 % (0-8) Platelet Estimate Adequate Pending Platelet Morphology Normal Pending Anisocytosis 2+ Microcytosis 1+ Macrocytosis 1+ Ovalocytes 1+ Acanthocytes 1+ Schistocytes 1+ Prothrombin Time 11.2 SEC (9.30-11.50) 12.6 SEC (9.30-11.50) H Prothromb Time International Ratio 1.1 (0.9-1.1) 1.2 (0.9-1.1) H Activated Partial Thromboplast Time 27 SEC (23-33) 32 SEC (23-33) Erythrocyte Sedimentation Rate Pending Reticulocyte Count Pending Sodium Level 139 MMOL/L (136-145) Potassium Level 3.5 MMOL/L (3.5-5.1) Chloride Level 107 MMOL/L (98-107) Carbon Dioxide Level 23 MMOL/L (21-32) Anion Gap 9 mmol/L (5-15) Blood Urea Nitrogen 20 mg/dL (7-18) H Creatinine 0.6 MG/DL (0.55-1.30) Estimat Glomerular Filtration Rate mL/min (>60) Glucose Level 85 MG/DL (74-106) Calcium Level 7.6 MG/DL (8.5-10.1) L Iron Level 9 ug/dL (50-175) L Total Iron Binding Capacity 331 ug/dL (250-450) Percent Iron Saturation 3 % (15-50) L Unsaturated Iron Binding 322 ug/dL (112-346) Total Bilirubin 0.6 MG/DL (0.2-1.0) Aspartate Amino Transf (AST/SGOT) 17 U/L (15-37) Alanine Aminotransferase (ALT/SGPT) 15 U/L (12-78) Alkaline Phosphatase 81 U/L (46-116) Lactate Dehydrogenase 180 U/L (81-234) Total Protein 5.6 G/DL (6.4-8.2) L Albumin 2.5 G/DL (3.4-5.0) L Globulin 3.1 g/dL Albumin/Globulin Ratio 0.8 (1.0-2.7) L Amylase Level 26 U/L (25-115) Lipase 38 U/L (73-393) L Carcinoembryonic Antigen Pending Vitamin B12 Level 348 PG/ML (193-986) Folate 3.3 NG/ML (8.6-58.9) L Current Medications Medications (Trade) Dose Ordered Sig/Bre Route PRN Reason Start Time Stop Time Status Last Admin Dose Admin Acetaminophen (Tylenol) 650 mg Q4H PRN ORAL fever (temp>100.5F) 01/28/18 17:30 02/27/18 17:29 Al Hydroxide/Mg Hydroxide (Mylanta II) 30 ml Q6H PRN ORAL dyspepsia 01/28/18 17:30 02/27/18 17:29 Cefepime HCl 2 gm/ Dextrose 55 ml @ 110 mls/hr Q12H IVPB 01/28/18 23:00 02/04/18 22:59 01/28/18 23:28 Dextrose (Dextrose 50%) 25 ml Q30M PRN IV Hypoglycemia 01/28/18 17:15 02/27/18 07:14 Dextrose (Dextrose 50%) 50 ml Q30M PRN IV Hypoglycemia 01/28/18 17:15 02/27/18 07:14 Dextrose/Sodium Chloride 1,000 ml @ 75 mls/hr [id number] IV 01/28/18 17:00 02/27/18 08:59 01/29/18 06:56 Diphenhydramine HCl (Benadryl) 25 mg Q6H PRN ORAL Itching/Pruritis 01/28/18 17:30 02/27/18 17:29 Lorazepam (Ativan 2mg/ml 1ml) 1 mg Q4H PRN IV agitation 01/28/18 17:30 02/04/18 17:29 Metronidazole 100 ml @ 100 mls/hr Q8H IVPB 01/29/18 00:00 02/05/18 00:00 01/29/18 08:13 Morphine Sulfate (Morphine Sulfate) 2 mg Q4H PRN IVP severe pain (Pain Scale 7-10) 01/28/18 17:30 02/04/18 17:29 01/28/18 20:12 Nitroglycerin (Ntg) 0.4 mg Q5M X 3 DOSES PRN SL Prn Chest Pain 01/28/18 17:00 02/27/18 07:14 Ondansetron HCl (Zofran) 4 mg Q6H PRN IVP Nausea & Vomiting 01/28/18 17:30 02/27/18 17:29 Pantoprazole 80 mg/Sodium Chloride 250 ml @ 25 mls/hr Q10H IV 01/28/18 23:31 02/27/18 23:30 01/29/18 00:36 Polyethylene Glycol (Miralax) 17 gm HSPRN PRN ORAL Constipation 01/28/18 21:00 02/27/18 20:59 Temazepam (Restoril) 15 mg HSPRN PRN ORAL Insomnia 01/28/18 21:00 02/04/18 20:59 Jose Lin MD Jan 29, 2018 10:04
[2018-01-29] MEDS: Cefepime HCl 2 GM in D5W 55 ML IVPB SCH ×2 (13:30→23:26)
--- NOTE | 2018-01-29 17:22 | Internal Med Progress Note ---
Subjective Date of Service: Jan 29, 2018 Physician Name Martin,Tashi Attending Physician Mauricio Lopez MD Current Medications Medications (Trade) Dose Ordered Sig/Bre Route PRN Reason Start Time Stop Time Status Last Admin Dose Admin Acetaminophen (Tylenol) 650 mg Q4H PRN ORAL fever (temp>100.5F) 01/28/18 17:30 02/27/18 17:29 Al Hydroxide/Mg Hydroxide (Mylanta II) 30 ml Q6H PRN ORAL dyspepsia 01/28/18 17:30 02/27/18 17:29 Cefepime HCl 2 gm/ Dextrose 55 ml @ 110 mls/hr Q12H IVPB 01/28/18 23:00 02/04/18 22:59 01/29/18 13:30 Dextrose (Dextrose 50%) 25 ml Q30M PRN IV Hypoglycemia 01/28/18 17:15 02/27/18 07:14 Dextrose (Dextrose 50%) 50 ml Q30M PRN IV Hypoglycemia 01/28/18 17:15 02/27/18 07:14 Dextrose/Sodium Chloride 1,000 ml @ 75 mls/hr [id number] IV 01/28/18 17:00 02/27/18 08:59 01/29/18 06:56 Diphenhydramine HCl (Benadryl) 25 mg Q6H PRN ORAL Itching/Pruritis 01/28/18 17:30 02/27/18 17:29 Lorazepam (Ativan 2mg/ml 1ml) 1 mg Q4H PRN IV agitation 01/28/18 17:30 02/04/18 17:29 Metronidazole 100 ml @ 100 mls/hr Q8H IVPB 01/29/18 00:00 02/05/18 00:00 01/29/18 16:11 Morphine Sulfate (Morphine Sulfate) 2 mg Q4H PRN IVP severe pain (Pain Scale 7-10) 01/28/18 17:30 02/04/18 17:29 01/28/18 20:12 Nitroglycerin (Ntg) 0.4 mg Q5M X 3 DOSES PRN SL Prn Chest Pain 01/28/18 17:00 02/27/18 07:14 Ondansetron HCl (Zofran) 4 mg Q6H PRN IVP Nausea & Vomiting 01/28/18 17:30 02/27/18 17:29 Pantoprazole 80 mg/Sodium Chloride 250 ml @ 25 mls/hr Q10H IV 01/28/18 23:31 02/27/18 23:30 01/29/18 12:25 Polyethylene Glycol (Miralax) 17 gm HSPRN PRN ORAL Constipation 01/28/18 21:00 02/27/18 20:59 Temazepam (Restoril) 15 mg HSPRN PRN ORAL Insomnia 01/28/18 21:00 02/04/18 20:59 Allergies: Coded Allergies: NO KNOWN ALLERGIES (Unverified Allergy, Unknown, 04/09/15) ROS Limited/Unobtainable: No Constitutional: Reports: no symptoms HEENT: Reports: no symptoms Cardiovascular: Reports: no symptoms Respiratory: Reports: no symptoms Gastrointestinal/Abdominal: Reports: abdominal pain Genitourinary: Reports: no symptoms Neurologic/Psychiatric: Reports: no symptoms Subjective 82 YO F admitted with epigastric pain. Now gastrointestinal hemorrhage and severe anemia. Cover for Int Abdoulaye-Dr Lopez. S/P endoscopy 01/28/18. Objective Last Vital Signs Date Time Temp Pulse Resp B/P (MAP) Pulse Ox O2 Delivery O2 Flow Rate FiO2 01/29/18 16:00 97.5 67 18 112/64 (80) 100 01/29/18 09:00 Nasal Cannula 2.0 General Appearance: WD/WN, no apparent distress, alert EENT: PERRL/EOMI, normal ENT inspection Neck: non-tender, normal alignment, supple, normal inspection Cardiovascular: normal peripheral pulses, normal rate, regular rhythm, no gallop/murmur, no JVD Respiratory/Chest: chest wall non-tender, lungs clear, normal breath sounds, no respiratory distress, no accessory muscle use Abdomen: soft, decreased bowel sounds, guarding, tender Extremities: normal range of motion, non-tender Neurologic: meat grader II-XII grossly normal, no motor/sensory deficits Skin: normal pigmentation, warm/dry Laboratory Tests Test 01/29/18 06:30 01/29/18 06:35 01/29/18 07:30 Activated Partial Thromboplast Time 32 SEC (23-33) White Blood Count 11.4 K/UL (4.8-10.8) #H Red Blood Count 3.65 M/UL (4.20-5.40) L Hemoglobin 7.4 G/DL (12.0-16.0) L Hematocrit 24.0 % (37.0-47.0) L Mean Corpuscular Volume 66 FL (80-99) L Mean Corpuscular Hemoglobin 20.3 PG (27.0-31.0) L Mean Corpuscular Hemoglobin Concent 30.8 G/DL (32.0-36.0) L Red Cell Distribution Width 22.7 % (11.6-14.8) H Platelet Count 306 K/UL (150-450) Mean Platelet Volume 6.4 FL (6.5-10.1) L Neutrophils (%) (Auto) % (45.0-75.0) Lymphocytes (%) (Auto) % (20.0-45.0) Monocytes (%) (Auto) % (1.0-10.0) Eosinophils (%) (Auto) % (0.0-3.0) Basophils (%) (Auto) % (0.0-2.0) Differential Total Cells Counted 100 Neutrophils % (Manual) 73 % (45-75) Lymphocytes % (Manual) 15 % (20-45) L Monocytes % (Manual) 3 % (1-10) Eosinophils % (Manual) 0 % (0-3) Basophils % (Manual) 0 % (0-2) Band Neutrophils 9 % (0-8) H Platelet Estimate Adequate Platelet Morphology Normal Hypochromasia 2+ Microcytosis 3+ Tear Drop Cells Occasional Ovalocytes 1+ Ziggy Cells Occasional Erythrocyte Sedimentation Rate 27 MM/HR (0-30) Reticulocyte Count 0.5 % (0.0-2.0) Sodium Level 139 MMOL/L (136-145) Potassium Level 3.5 MMOL/L (3.5-5.1) Chloride Level 107 MMOL/L (98-107) Carbon Dioxide Level 23 MMOL/L (21-32) Anion Gap 9 mmol/L (5-15) Blood Urea Nitrogen 20 mg/dL (7-18) H Creatinine 0.6 MG/DL (0.55-1.30) Estimat Glomerular Filtration Rate mL/min (>60) Glucose Level 85 MG/DL (74-106) Calcium Level 7.6 MG/DL (8.5-10.1) L Iron Level 9 ug/dL (50-175) L Total Iron Binding Capacity 331 ug/dL (250-450) Percent Iron Saturation 3 % (15-50) L Unsaturated Iron Binding 322 ug/dL (112-346) Total Bilirubin 0.6 MG/DL (0.2-1.0) Aspartate Amino Transf (AST/SGOT) 17 U/L (15-37) Alanine Aminotransferase (ALT/SGPT) 15 U/L (12-78) Alkaline Phosphatase 81 U/L (46-116) Lactate Dehydrogenase 180 U/L (81-234) Total Protein 5.6 G/DL (6.4-8.2) L Albumin 2.5 G/DL (3.4-5.0) L Globulin 3.1 g/dL Albumin/Globulin Ratio 0.8 (1.0-2.7) L Amylase Level 26 U/L (25-115) Lipase 38 U/L (73-393) L Carcinoembryonic Antigen Pending Vitamin B12 Level 348 PG/ML (193-986) Folate 3.3 NG/ML (8.6-58.9) L Prothrombin Time 12.6 SEC (9.30-11.50) H Prothromb Time International Ratio 1.2 (0.9-1.1) H Microbiology Date/Time Source Procedure Growth Status 01/28/18 05:07 Urine,Clean Catch Urine Culture - Preliminary Strep Species, Beta Hemolytic Resulted Intake and Output 01/28/18 01/29/18 19:00 07:00 Intake Total 100 ml Balance 100 ml Intake IV Total 100 ml # Voids 4 # Bowel Movements 2 1 Assessment/Plan Problem List: (1) GI bleed Assessment & Plan: S/P endoscopy-see GI note=gastritis (2) Abdominal pain (3) Vomiting (4) Choledocholithiasis Assessment & Plan: See endoscopy report; Await surgery consult (5) Severe anemia Assessment & Plan: Due to GI bleed. See GI note. S/P transfusion 3 units PRBC Status: not improved Tashi Martin MD Jan 29, 2018 17:22
--- NOTE | 2018-01-29 23:25 | General Progress Note ---
Assessment/Plan Status: stable Assessment/Plan anxiety d/o cognitive impairment ativan prn provided ro/st Subjective Date patient seen: Jan 29, 2018 Neurologic/Psychiatric: Reports: anxiety, depressed, emotional problems Allergies: Coded Allergies: NO KNOWN ALLERGIES (Unverified Allergy, Unknown, 04/09/15) Objective Last 24 Hour Vital Signs Date Time Temp Pulse Resp B/P (MAP) Pulse Ox O2 Delivery O2 Flow Rate FiO2 01/29/18 20:00 98.0 51 18 111/68 (82) 98 01/29/18 16:00 97.5 67 18 112/64 (80) 100 01/29/18 13:00 97.3 68 18 101/60 (74) 99 01/29/18 12:00 97.5 62 18 109/63 (78) 99 01/29/18 10:45 98.3 66 18 102/59 (73) 96 01/29/18 10:00 97.9 69 18 101/59 (73) 96 01/29/18 09:00 Nasal Cannula 2.0 01/29/18 08:00 98.4 68 18 102/60 (74) 94 01/29/18 04:00 98.3 72 18 95/60 (72) 98 01/29/18 00:00 98.1 75 18 94/58 (70) 97 Intake and Output 01/28/18 01/29/18 19:00 07:00 Intake Total 100 ml Balance 100 ml IV Total 100 ml # Voids 4 # Bowel Movements 2 1 Laboratory Tests 01/29/18 06:30: Activated Partial Thromboplast Time 32 01/29/18 06:35: White Blood Count 11.4#H, Red Blood Count 3.65L, Hemoglobin 7.4L, Hematocrit 24.0L, Mean Corpuscular Volume 66L, Mean Corpuscular Hemoglobin 20.3L, Mean Corpuscular Hemoglobin Concent 30.8L, Red Cell Distribution Width 22.7H, Platelet Count 306, Mean Platelet Volume 6.4L, Neutrophils (%) (Auto) , Lymphocytes (%) (Auto) , Monocytes (%) (Auto) , Eosinophils (%) (Auto) , Basophils (%) (Auto) , Differential Total Cells Counted 100, Neutrophils % ( Manual) 73, Lymphocytes % (Manual) 15L, Monocytes % (Manual) 3, Eosinophils % ( Manual) 0, Basophils % (Manual) 0, Band Neutrophils 9H, Platelet Estimate Adequate, Platelet Morphology Normal, Hypochromasia 2+, Microcytosis 3+, Tear Drop Cells Occasional, Ovalocytes 1+, [place] Cells Occasional, Erythrocyte Sedimentation Rate 27, Reticulocyte Count 0.5, Sodium Level 139, Potassium Level 3.5, Chloride Level 107, Carbon Dioxide Level 23, Anion Gap 9, Blood Urea Nitrogen 20H, Creatinine 0.6, Estimat Glomerular Filtration Rate , Glucose Level 85, Calcium Level 7.6L, Iron Level 9L, Total Iron Binding Capacity 331, Percent Iron Saturation 3L, Unsaturated Iron Binding 322, Total Bilirubin 0.6, Aspartate Amino Transf (AST/SGOT) 17, Alanine Aminotransferase (ALT/SGPT) 15, Alkaline Phosphatase 81, Lactate Dehydrogenase 180, Total Protein 5.6L, Albumin 2.5L, Globulin 3.1, Albumin/Globulin Ratio 0.8L, Amylase Level 26, Lipase 38L, Carcinoembryonic Antigen [Pending], Vitamin B12 Level 348, Folate 3.3L 01/29/18 07:30: Prothrombin Time 12.6H, Prothromb Time International Ratio 1.2H Height (Feet): 5 Weight (Pounds): 102 General Appearance: no apparent distress, alert Philip Burton MD Jan 29, 2018 23:25
[2018-01-30] VITALS: BP 115/63
[2018-01-30 04:00] VITALS: BP 121/70
[2018-01-30] MEDS: Pantoprazole 80 MG in NS 250 ML IV SCH ×2 (06:56→16:48)
[2018-01-30 07:06] LABS: BASOPHILS % (AUTO) 1.6 % (0.0-2.0); HEMATOCRIT 27.2 % (37.0-47.0); HEMOGLOBIN 8.4 G/DL (12.0-16.0); LYMPHOCYTES % (AUTO) 10.7 % (20.0-45.0); MEAN CORPUSCULAR VOLUME 66 FL (80-99); NEUTROPHILS % (AUTO) 78.7 % (45.0-75.0); PLATELET COUNT 281 K/UL (150-450); RED BLOOD COUNT 4.09 M/UL (4.20-5.40); RED CELL DISTRIBUTION WIDTH 22.1 % (11.6-14.8)
[2018-01-30 07:33] LABS: ALANINE AMINOTRANSFERASE 16 U/L (12-78); ALBUMIN 2.5 G/DL (3.4-5.0); ALBUMIN/GLOBULIN RATIO 0.7 (1.0-2.7); ALKALINE PHOSPHATASE 78 U/L (46-116); ANION GAP 5 mmol/L (5-15); ASPARTATE AMINO TRANSFERASE 13 U/L (15-37); BILIRUBIN,TOTAL 0.5 MG/DL (0.2-1.0); BLOOD UREA NITROGEN 12 mg/dL (7-18); CALCIUM 7.7 MG/DL (8.5-10.1); CARBON DIOXIDE 23 MMOL/L (21-32); CHLORIDE 110 MMOL/L (98-107); CREATININE 0.7 MG/DL (0.55-1.30); PHOSPHORUS 2.8 MG/DL (2.5-4.9); POTASSIUM 3.2 MMOL/L (3.5-5.1); SODIUM 138 MMOL/L (136-145)
--- NOTE | 2018-01-30 07:49 | General Progress Note ---
Assessment/Plan Problem List: (1) GI bleed ICD Codes: K92.2 - Gastrointestinal hemorrhage, unspecified SNOMED: 03529796 Qualifiers: Qualified Codes: K92.2 - Gastrointestinal hemorrhage, unspecified (2) Anemia ICD Codes: D64.9 - Anemia, unspecified SNOMED: 320365435 Qualifiers: Qualified Codes: D64.9 - Anemia, unspecified (3) Choledocholithiasis ICD Codes: K80.50 - Calculus of bile duct without cholangitis or cholecystitis without obstruction SNOMED: 915688769 Assessment/Plan no recurrent GIB neg EGD on Wednesday plan colonoscopy on Wednesday ERCP on hold given normal LFTS repeat cbs and CMP in am Subjective ROS Limited/Unobtainable: No Allergies: Coded Allergies: NO KNOWN ALLERGIES (Unverified Allergy, Unknown, 04/09/15) Objective Last 24 Hour Vital Signs Date Time Temp Pulse Resp B/P (MAP) Pulse Ox O2 Delivery O2 Flow Rate FiO2 01/30/18 04:00 97.5 56 20 121/70 (87) 99 01/30/18 00:00 98.0 60 20 115/63 (80) 98 01/29/18 21:00 Nasal Cannula 2.0 01/29/18 20:00 98.0 51 18 111/68 (82) 98 01/29/18 16:00 97.5 67 18 112/64 (80) 100 01/29/18 13:00 97.3 68 18 101/60 (74) 99 01/29/18 12:00 97.5 62 18 109/63 (78) 99 01/29/18 10:45 98.3 66 18 102/59 (73) 96 01/29/18 10:00 97.9 69 18 101/59 (73) 96 01/29/18 09:00 Nasal Cannula 2.0 01/29/18 08:00 98.4 68 18 102/60 (74) 94 Intake and Output 01/29/18 01/30/18 19:00 07:00 Intake Total 880 ml 1220 ml Balance 880 ml 1220 ml Intake Oral 400 ml 240 ml IV Total 480 ml 980 ml # Voids 5 3 Laboratory Tests 01/30/18 06:40: White Blood Count 7.0, Red Blood Count 4.09L, Hemoglobin 8.4L, Hematocrit 27.2L , Mean Corpuscular Volume 66L, Mean Corpuscular Hemoglobin 20.6L, Mean Corpuscular Hemoglobin Concent 31.0L, Red Cell Distribution Width 22.1H, Platelet Count 281, Mean Platelet Volume 6.8, Neutrophils (%) (Auto) 78.7H, Lymphocytes (%) (Auto) 10.7L, Monocytes (%) (Auto) 7.0, Eosinophils (%) (Auto) 2.0, Basophils (%) (Auto) 1.6, Erythrocyte Sedimentation Rate [Pending], Sodium Level 138, Potassium Level 3.2L, Chloride Level 110H, Carbon Dioxide Level 23, Anion Gap 5, Blood Urea Nitrogen 12, Creatinine 0.7, Estimat Glomerular Filtration Rate , Glucose Level 95, Calcium Level 7.7L, Phosphorus Level 2.8, Magnesium Level 2.0, Total Bilirubin 0.5, Aspartate Amino Transf (AST/SGOT) 13L , Alanine Aminotransferase (ALT/SGPT) 16, Alkaline Phosphatase 78, C-Reactive Protein, Quantitative 6.9H, Total Protein 6.0L, Albumin 2.5L, Globulin 3.5, Albumin/Globulin Ratio 0.7L Height (Feet): 5 Weight (Pounds): 102 General Appearance: no apparent distress EENT: normal ENT inspection Neck: supple Cardiovascular: normal rate Respiratory/Chest: decreased breath sounds Abdomen: normal bowel sounds, non tender, soft Extremities: non-tender Dale Ramirez MD Jan 30, 2018 07:49
[2018-01-30 08:00] VITALS: BP 125/69
[2018-01-30] MEDS: D5 1/2NS 1,000 ML IV SCH ×2 (10:41→22:12)
[2018-01-30] MEDS: Cefepime HCl 2 GM in D5W 55 ML IVPB SCH ×2 (11:56→22:57)
[2018-01-30 12:00] VITALS: BP 123/68
--- NOTE | 2018-01-30 13:35 | Internal Med Progress Note ---
Subjective Date of Service: Jan 30, 2018 Physician Name Martin,Tashi Attending Physician Mauricio Lopez MD Current Medications Medications (Trade) Dose Ordered Sig/Bre Route PRN Reason Start Time Stop Time Status Last Admin Dose Admin Acetaminophen (Tylenol) 650 mg Q4H PRN ORAL fever (temp>100.5F) 01/28/18 17:30 02/27/18 17:29 Al Hydroxide/Mg Hydroxide (Mylanta II) 30 ml Q6H PRN ORAL dyspepsia 01/28/18 17:30 02/27/18 17:29 Cefepime HCl 2 gm/ Dextrose 55 ml @ 110 mls/hr Q12H IVPB 01/28/18 23:00 02/04/18 22:59 01/30/18 11:56 Dextrose (Dextrose 50%) 25 ml Q30M PRN IV Hypoglycemia 01/28/18 17:15 02/27/18 07:14 Dextrose (Dextrose 50%) 50 ml Q30M PRN IV Hypoglycemia 01/28/18 17:15 02/27/18 07:14 Dextrose/Sodium Chloride 1,000 ml @ 75 mls/hr [id number] IV 01/28/18 17:00 02/27/18 08:59 01/30/18 10:41 Diphenhydramine HCl (Benadryl) 25 mg Q6H PRN ORAL Itching/Pruritis 01/28/18 17:30 02/27/18 17:29 Lorazepam (Ativan 2mg/ml 1ml) 1 mg Q4H PRN IV agitation 01/28/18 17:30 02/04/18 17:29 Metronidazole 100 ml @ 100 mls/hr Q8H IVPB 01/29/18 00:00 02/05/18 00:00 01/30/18 10:40 Morphine Sulfate (Morphine Sulfate) 2 mg Q4H PRN IVP severe pain (Pain Scale 7-10) 01/28/18 17:30 02/04/18 17:29 01/28/18 20:12 Nitroglycerin (Ntg) 0.4 mg Q5M X 3 DOSES PRN SL Prn Chest Pain 01/28/18 17:00 02/27/18 07:14 Ondansetron HCl (Zofran) 4 mg Q6H PRN IVP Nausea & Vomiting 01/28/18 17:30 02/27/18 17:29 01/30/18 12:05 Pantoprazole 80 mg/Sodium Chloride 250 ml @ 25 mls/hr Q10H IV 01/28/18 23:31 02/27/18 23:30 01/30/18 06:56 Polyethylene Glycol (Miralax) 17 gm HSPRN PRN ORAL Constipation 01/28/18 21:00 02/27/18 20:59 Polyethylene Glycol/ Electrolytes (Nulytely) 4,000 ml ONCE ONCE ORAL 01/30/18 16:00 01/30/18 16:01 Temazepam (Restoril) 15 mg HSPRN PRN ORAL Insomnia 01/28/18 21:00 02/04/18 20:59 Allergies: Coded Allergies: NO KNOWN ALLERGIES (Unverified Allergy, Unknown, 04/09/15) ROS Limited/Unobtainable: No Constitutional: Reports: no symptoms HEENT: Reports: no symptoms Cardiovascular: Reports: no symptoms Respiratory: Reports: no symptoms Gastrointestinal/Abdominal: Reports: abdominal pain Genitourinary: Reports: no symptoms Neurologic/Psychiatric: Reports: no symptoms Subjective 82 YO F admitted with epigastric pain. Now gastrointestinal hemorrhage and severe anemia. Also common bile duct stone. Cover for Int Abdoulaye-Dr Lopez. S/P endoscopy 01/28/18. Colonoscopy scheduled for 01/31/18 Objective Last Vital Signs Date Time Temp Pulse Resp B/P (MAP) Pulse Ox O2 Delivery O2 Flow Rate FiO2 01/30/18 09:00 Nasal Cannula 2.0 01/30/18 08:00 98.0 62 18 125/69 (87) 99 Laboratory Tests Test 01/30/18 06:40 White Blood Count 7.0 K/UL (4.8-10.8) Red Blood Count 4.09 M/UL (4.20-5.40) L Hemoglobin 8.4 G/DL (12.0-16.0) L Hematocrit 27.2 % (37.0-47.0) L Mean Corpuscular Volume 66 FL (80-99) L Mean Corpuscular Hemoglobin 20.6 PG (27.0-31.0) L Mean Corpuscular Hemoglobin Concent 31.0 G/DL (32.0-36.0) L Red Cell Distribution Width 22.1 % (11.6-14.8) H Platelet Count 281 K/UL (150-450) Mean Platelet Volume 6.8 FL (6.5-10.1) Neutrophils (%) (Auto) 78.7 % (45.0-75.0) H Lymphocytes (%) (Auto) 10.7 % (20.0-45.0) L Monocytes (%) (Auto) 7.0 % (1.0-10.0) Eosinophils (%) (Auto) 2.0 % (0.0-3.0) Basophils (%) (Auto) 1.6 % (0.0-2.0) Erythrocyte Sedimentation Rate 35 MM/HR (0-30) H Sodium Level 138 MMOL/L (136-145) Potassium Level 3.2 MMOL/L (3.5-5.1) L Chloride Level 110 MMOL/L (98-107) H Carbon Dioxide Level 23 MMOL/L (21-32) Anion Gap 5 mmol/L (5-15) Blood Urea Nitrogen 12 mg/dL (7-18) Creatinine 0.7 MG/DL (0.55-1.30) Estimat Glomerular Filtration Rate mL/min (>60) Glucose Level 95 MG/DL (74-106) Calcium Level 7.7 MG/DL (8.5-10.1) L Phosphorus Level 2.8 MG/DL (2.5-4.9) Magnesium Level 2.0 MG/DL (1.8-2.4) Total Bilirubin 0.5 MG/DL (0.2-1.0) Aspartate Amino Transf (AST/SGOT) 13 U/L (15-37) L Alanine Aminotransferase (ALT/SGPT) 16 U/L (12-78) Alkaline Phosphatase 78 U/L (46-116) C-Reactive Protein, Quantitative 6.9 mg/dL (0.00-0.90) H Total Protein 6.0 G/DL (6.4-8.2) L Albumin 2.5 G/DL (3.4-5.0) L Globulin 3.5 g/dL Albumin/Globulin Ratio 0.7 (1.0-2.7) L Microbiology Date/Time Source Procedure Growth Status 01/28/18 05:07 Urine,Clean Catch Urine Culture - Final Strep Agalactiae Group B Complete Intake and Output 01/29/18 01/30/18 18:59 06:59 Intake Total 880 ml 1220 ml Balance 880 ml 1220 ml Intake Oral 400 ml 240 ml IV Total 480 ml 980 ml # Voids 5 3 Objective General Appearance: WD/WN, no apparent distress, alert EENT: PERRL/EOMI, normal ENT inspection Neck: non-tender, normal alignment, supple, normal inspection Cardiovascular: normal peripheral pulses, normal rate, regular rhythm, no gallop/murmur, no JVD Respiratory/Chest: chest wall non-tender, lungs clear, normal breath sounds, no respiratory distress, no accessory muscle use Abdomen: soft, decreased bowel sounds, guarding, tender Extremities: normal range of motion, non-tender 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 Await colonoscopy on 01/31/18 (2) Abdominal pain (3) Vomiting (4) Choledocholithiasis Assessment & Plan: See endoscopy report; Await surgery consult (5) Severe anemia Assessment & Plan: Due to GI bleed. See GI note. S/P transfusion 3 units PRBC (6) Common bile duct stone Assessment & Plan: ERCP on hold - see GI consult. Status: not improved Tashi Martin MD Jan 30, 2018 13:35
--- NOTE | 2018-01-30 14:45 | Consultation ---
History of Present Illness General Date patient seen: Jan 30, 2018 Chief Complaint: Abdominal Pain Referring physician: IMELDA CHARLES Reason for Consultation: UGIB Present Illness HPI 82 year old female admitted for nausea, emesis, abdominal pain. leukocytosis 23k. US/CT/MRCP with cholelithiasis and choledocholithiasis. Surgery called to evaluate and assist with care and management. patient seen, chart reviewed, patient examined. currently no abdominal pain. currently no n/v/f/c. labs improved. Allergies: Coded Allergies: NO KNOWN ALLERGIES (Unverified Allergy, Unknown, 04/09/15) Medication History Scheduled No Known Medications* (NKM - No Known Medications*), 0 ., (Reported) Patient History History Provided By: Patient, Medical Record, PMD Healthcare decision maker self and daughter Resuscitation status Full Code Advanced Directive on File No Past Medical/Surgical History Past Medical/Surgical History: (1) Abdominal gas pain (2) Metastasis (3) GI bleed (4) Anemia (5) Abdominal pain (6) Choledocholithiasis (7) Vomiting (8) Severe anemia (9) Common bile duct stone Review of Systems All Other Systems: negative except mentioned in HPI Physical Exam General Appearance: no apparent distress, alert Lines, tubes and drains: peripheral HEENT: anicteric, mucous membranes moist Neck: normal inspection Respiratory/Chest: normal breath sounds, no respiratory distress, no accessory muscle use Cardiovascular/Chest: normal rate, regular rhythm Abdomen: normal bowel sounds, non tender, soft, no organomegaly, no mass Extremities: normal inspection Skin Exam: warm/dry Neurologic: alert, responsive Last 24 Hour Vital Signs Date Time Temp Pulse Resp B/P (MAP) Pulse Ox O2 Delivery O2 Flow Rate FiO2 01/30/18 12:00 98.6 64 19 123/68 (86) 97 01/30/18 09:00 Nasal Cannula 2.0 01/30/18 08:00 98.0 62 18 125/69 (87) 99 01/30/18 04:00 97.5 56 20 121/70 (87) 99 01/30/18 00:00 98.0 60 20 115/63 (80) 98 01/29/18 21:00 Nasal Cannula 2.0 01/29/18 20:00 98.0 51 18 111/68 (82) 98 10/27/18 16:00 97.5 67 18 112/64 (80) 100 Intake and Output 01/29/18 01/30/18 18:59 06:59 Intake Total 880 ml 1220 ml Balance 880 ml 1220 ml Intake Oral 400 ml 240 ml IV Total 480 ml 980 ml # Voids 5 3 Laboratory Tests Test 01/30/18 06:40 White Blood Count 7.0 K/UL (4.8-10.8) Red Blood Count 4.09 M/UL (4.20-5.40) L Hemoglobin 8.4 G/DL (12.0-16.0) L Hematocrit 27.2 % (37.0-47.0) L Mean Corpuscular Volume 66 FL (80-99) L Mean Corpuscular Hemoglobin 20.6 PG (27.0-31.0) L Mean Corpuscular Hemoglobin Concent 31.0 G/DL (32.0-36.0) L Red Cell Distribution Width 22.1 % (11.6-14.8) H Platelet Count 281 K/UL (150-450) Mean Platelet Volume 6.8 FL (6.5-10.1) Neutrophils (%) (Auto) 78.7 % (45.0-75.0) H Lymphocytes (%) (Auto) 10.7 % (20.0-45.0) L Monocytes (%) (Auto) 7.0 % (1.0-10.0) Eosinophils (%) (Auto) 2.0 % (0.0-3.0) Basophils (%) (Auto) 1.6 % (0.0-2.0) Erythrocyte Sedimentation Rate 35 MM/HR (0-30) H Sodium Level 138 MMOL/L (136-145) Potassium Level 3.2 MMOL/L (3.5-5.1) L Chloride Level 110 MMOL/L (98-107) H Carbon Dioxide Level 23 MMOL/L (21-32) Anion Gap 5 mmol/L (5-15) Blood Urea Nitrogen 12 mg/dL (7-18) Creatinine 0.7 MG/DL (0.55-1.30) Estimat Glomerular Filtration Rate mL/min (>60) Glucose Level 95 MG/DL (74-106) Calcium Level 7.7 MG/DL (8.5-10.1) L Phosphorus Level 2.8 MG/DL (2.5-4.9) Magnesium Level 2.0 MG/DL (1.8-2.4) Total Bilirubin 0.5 MG/DL (0.2-1.0) Aspartate Amino Transf (AST/SGOT) 13 U/L (15-37) L Alanine Aminotransferase (ALT/SGPT) 16 U/L (12-78) Alkaline Phosphatase 78 U/L (46-116) C-Reactive Protein, Quantitative 6.9 mg/dL (0.00-0.90) H Total Protein 6.0 G/DL (6.4-8.2) L Albumin 2.5 G/DL (3.4-5.0) L Globulin 3.5 g/dL Albumin/Globulin Ratio 0.7 (1.0-2.7) L Height (Feet): 5 Weight (Pounds): 102 Medications Current Medications Medications (Trade) Dose Ordered Sig/Bre Route PRN Reason Start Time Stop Time Status Last Admin Dose Admin Acetaminophen (Tylenol) 650 mg Q4H PRN ORAL fever (temp>100.5F) 01/28/18 17:30 02/27/18 17:29 Al Hydroxide/Mg Hydroxide (Mylanta II) 30 ml Q6H PRN ORAL dyspepsia 01/28/18 17:30 02/27/18 17:29 Cefepime HCl 2 gm/ Dextrose 55 ml @ 110 mls/hr Q12H IVPB 01/28/18 23:00 02/04/18 22:59 01/30/18 11:56 Dextrose (Dextrose 50%) 25 ml Q30M PRN IV Hypoglycemia 01/28/18 17:15 02/27/18 07:14 Dextrose (Dextrose 50%) 50 ml Q30M PRN IV Hypoglycemia 01/28/18 17:15 02/27/18 07:14 Dextrose/Sodium Chloride 1,000 ml @ 75 mls/hr [id number] IV 01/28/18 17:00 02/27/18 08:59 01/30/18 10:41 Diphenhydramine HCl (Benadryl) 25 mg Q6H PRN ORAL Itching/Pruritis 01/28/18 17:30 02/27/18 17:29 Lorazepam (Ativan 2mg/ml 1ml) 1 mg Q4H PRN IV agitation 01/28/18 17:30 02/04/18 17:29 Metronidazole 100 ml @ 100 mls/hr Q8H IVPB 01/29/18 00:00 02/05/18 00:00 01/30/18 10:40 Morphine Sulfate (Morphine Sulfate) 2 mg Q4H PRN IVP severe pain (Pain Scale 7-10) 01/28/18 17:30 02/04/18 17:29 01/28/18 20:12 Nitroglycerin (Ntg) 0.4 mg Q5M X 3 DOSES PRN SL Prn Chest Pain 01/28/18 17:00 02/27/18 07:14 Ondansetron HCl (Zofran) 4 mg Q6H PRN IVP Nausea & Vomiting 01/28/18 17:30 02/27/18 17:29 01/30/18 12:05 Pantoprazole 80 mg/Sodium Chloride 250 ml @ 25 mls/hr Q10H IV 01/28/18 23:31 02/27/18 23:30 01/30/18 06:56 Polyethylene Glycol (Miralax) 17 gm HSPRN PRN ORAL Constipation 01/28/18 21:00 02/27/18 20:59 Polyethylene Glycol/ Electrolytes (Nulytely) 4,000 ml ONCE ONCE ORAL 01/30/18 16:00 01/30/18 16:01 Temazepam (Restoril) 15 mg HSPRN PRN ORAL Insomnia 01/28/18 21:00 02/04/18 20:59 Assessment/Plan Problem List: (1) Abdominal pain Assessment & Plan: abdominal pain, n/v, cholelithiasis, choledocholithiasis afebrile, HD stable, labs resolved. US/CT/MRCP noted anemia -okay for diet from surgical standpoint -ERCP / Colonoscopy as per GI -trend labs -cont Abx -will follow with recs. thank you for this consultation. ICD Codes: R10.9 - Unspecified abdominal pain SNOMED: [id number] Qualifiers: Qualified Codes: R10.13 - Epigastric pain Status: stable Henrique Alejo Jan 30, 2018 14:45
[2018-01-30 16:00] VITALS: BP 124/71
[2018-01-30] MEDS ORDERED: Nulytely 4L ORAL ONE (16:00)
[2018-01-30 20:00] VITALS: BP 124/73
[2018-01-31] VITALS (10 sets, daily range): BP systolic 123–154; BP diastolic 70–92
[2018-01-31] MEDS: Pantoprazole 80 MG in NS 250 ML IV SCH ×4 (02:03→23:42)
--- NOTE | 2018-01-31 06:57 | Anethesia Preoperative Eval ---
Anesthesia Pre-op PMH/ROS General Date of Evaluation: Jan 31, 2018 Time of Evaluation: 06:54 Anesthesiologist: greg ASA Score: ASA 3 Mallampati Score Class I : Soft palate, uvula, fauces, pillars visible Class II: Soft palate, uvula, fauces visible Class III: Soft palate, base of uvula visible Class IV: Only hard plate visible Mallampati Classification: Class II Surgeon: vy Diagnosis: abdominal pain, vomiting Surgical Procedure: colonoscopy Anesthesia History: none Social History: smoking - nonsmoker Allergies: Coded Allergies: NO KNOWN ALLERGIES (Unverified Allergy, Unknown, 04/09/15) Medications: see eMAR Patient NPO?: Yes Past Medical History Cardiovascular: Reports: HTN Gastrointestinal/Genitourinary: Reports: other - gallstones, common bile duct stone, abdominal pain Hematology/Immune: Reports: anemia Anesthesia Pre-op Phys. Exam Physician Exam Last Vital Signs Date Time Temp Pulse Resp B/P (MAP) Pulse Ox O2 Delivery O2 Flow Rate FiO2 01/31/18 04:00 97.9 60 18 130/75 (93) 96 01/30/18 21:00 Nasal Cannula 2.0 Constitutional: NAD Neurologic: CN 2-12 intact Cardiovascular: RRR Respiratory: CTA Gastrointestinal: S/NT/ND Airway Exam Mallampati Score: Class II MO: limited Neck: flexible TMD: 2fb ROM: limited Anesthesia Pre-op A/P Labs Hematology Test 01/31/18 04:50 White Blood Count Pending Red Blood Count Pending Hemoglobin Pending Hematocrit Pending Mean Corpuscular Volume Pending Mean Corpuscular Hemoglobin Pending Mean Corpuscular Hemoglobin Concent Pending Red Cell Distribution Width Pending Platelet Count Pending Mean Platelet Volume Pending Neutrophils (%) (Auto) Pending Lymphocytes (%) (Auto) Pending Monocytes (%) (Auto) Pending Eosinophils (%) (Auto) Pending Basophils (%) (Auto) Pending Chemistry Test 01/31/18 04:50 Sodium Level Pending Potassium Level Pending Chloride Level Pending Carbon Dioxide Level Pending Blood Urea Nitrogen Pending Creatinine Pending Estimat Glomerular Filtration Rate Pending Glucose Level Pending Calcium Level Pending Risk Assessment & Plan Assessment: [email or web address] Plan: mac Status Change Before Surgery: No Pre-Antibiotics Drug: Kirsten Doshi MD Jan 31, 2018 06:57
[2018-01-31 06:58] LABS: BASOPHILS % (AUTO) 2.2 % (0.0-2.0); EOSINOPHILS % (AUTO) 1.6 % (0.0-3.0); HEMATOCRIT 26.3 % (37.0-47.0); LYMPHOCYTES % (AUTO) 17.8 % (20.0-45.0); MEAN CORPUSCULAR VOLUME 67 FL (80-99); MONOCYTES % (AUTO) 8.8 % (1.0-10.0); NEUTROPHILS % (AUTO) 69.6 % (45.0-75.0); PLATELET COUNT 311 K/UL (150-450); RED BLOOD COUNT 3.93 M/UL (4.20-5.40); RED CELL DISTRIBUTION WIDTH 22.5 % (11.6-14.8); WHITE BLOOD COUNT 5.5 K/UL (4.8-10.8)
[2018-01-31 07:00] LABS: ANION GAP 10 mmol/L (5-15); BLOOD UREA NITROGEN 7 mg/dL (7-18); CALCIUM 7.8 MG/DL (8.5-10.1); CARBON DIOXIDE 21 MMOL/L (21-32); CHLORIDE 108 MMOL/L (98-107); CREATININE 0.6 MG/DL (0.55-1.30); POTASSIUM 3.6 MMOL/L (3.5-5.1); SODIUM 139 MMOL/L (136-145)
[2018-01-31] MEDS ORDERED: Atropine Inj 1mg/10ml Syr IV PRN (07:00)
[2018-01-31] MEDS ORDERED: DiphenhydrAMINE 50mg/ml Inj IVP PRN (07:00)
[2018-01-31] MEDS ORDERED: Midazolam 2mg/2ml Inj IVP PRN (07:00)
[2018-01-31] MEDS ORDERED: fentaNYL 100 mcg/2 mL IV PRN (07:00)
--- NOTE | 2018-01-31 10:38 | Infectious Diseases Prog Note ---
Assessment/Plan Assessment/Plan ASSESSMENT: Leukocytosis (due to acute stress, gastrointestinal bleed), Sp common bile duct stone Calculus of bile duct without cholangitis or cholecystitis without obstruction UCX: Strp GrpB low count ( no clinical sig ) anemia HTN PLAN: DC cefepime and Flagyl d# 4 Monitor CBC. Monitor BMP. follow GI recommendations and common plan of colonoscopy on Wednesday. Monitor cultures (blood) GenSx following Subjective Constitutional: Denies: no symptoms, fever, chills, fatigue, anorexia, drenching sweats, other Allergies: Coded Allergies: NO KNOWN ALLERGIES (Unverified Allergy, Unknown, 04/09/15) Subjective no new complain Objective Vital Signs Last 24 Hour Vital Signs Date Time Temp Pulse Resp B/P (MAP) Pulse Ox O2 Delivery O2 Flow Rate FiO2 01/31/18 04:00 97.9 60 18 130/75 (93) 96 01/31/18 00:00 98.1 58 18 131/70 (90) 97 01/30/18 21:00 Nasal Cannula 2.0 01/30/18 20:00 97.7 57 18 124/73 (90) 98 01/30/18 16:00 98.0 64 19 124/71 (88) 99 01/30/18 12:00 98.6 64 19 123/68 (86) 97 Height (Feet): 5 Weight (Pounds): 102 HEENT: anicteric Respiratory/Chest: normal breath sounds Cardiovascular: regularly irregular Abdomen: no organomegaly Laboratory Tests Test 01/30/18 21:30 01/31/18 04:50 Stool Occult Blood Positive (NEGATIVE) White Blood Count 5.5 K/UL (4.8-10.8) Red Blood Count 3.93 M/UL (4.20-5.40) L Hemoglobin 8.0 G/DL (12.0-16.0) L Hematocrit 26.3 % (37.0-47.0) L Mean Corpuscular Volume 67 FL (80-99) L Mean Corpuscular Hemoglobin 20.4 PG (27.0-31.0) L Mean Corpuscular Hemoglobin Concent 30.5 G/DL (32.0-36.0) L Red Cell Distribution Width 22.5 % (11.6-14.8) H Platelet Count 311 K/UL (150-450) Mean Platelet Volume 6.9 FL (6.5-10.1) Neutrophils (%) (Auto) 69.6 % (45.0-75.0) Lymphocytes (%) (Auto) 17.8 % (20.0-45.0) L Monocytes (%) (Auto) 8.8 % (1.0-10.0) Eosinophils (%) (Auto) 1.6 % (0.0-3.0) Basophils (%) (Auto) 2.2 % (0.0-2.0) H Sodium Level 139 MMOL/L (136-145) Potassium Level 3.6 MMOL/L (3.5-5.1) Chloride Level 108 MMOL/L (98-107) H Carbon Dioxide Level 21 MMOL/L (21-32) Anion Gap 10 mmol/L (5-15) Blood Urea Nitrogen 7 mg/dL (7-18) Creatinine 0.6 MG/DL (0.55-1.30) Estimat Glomerular Filtration Rate mL/min (>60) Glucose Level 216 MG/DL (74-106) #H Calcium Level 7.8 MG/DL (8.5-10.1) L Current Medications Medications (Trade) Dose Ordered Sig/Bre Route PRN Reason Start Time Stop Time Status Last Admin Dose Admin Acetaminophen (Tylenol) 650 mg Q4H PRN ORAL fever (temp>100.5F) 01/28/18 17:30 02/27/18 17:29 Al Hydroxide/Mg Hydroxide (Mylanta II) 30 ml Q6H PRN ORAL dyspepsia 01/28/18 17:30 02/27/18 17:29 Al Hydroxide/Mg Hydroxide (Mylanta) 15 ml Q1H PRN ORAL gi upset 01/31/18 07:00 01/31/18 14:00 Atropine Sulfate (Atropine) 0.5 mg Q5M PRN IV bpm less than 45 01/31/18 07:00 01/31/18 14:00 Cefepime HCl 2 gm/ Dextrose 55 ml @ 110 mls/hr Q12H IVPB 01/28/18 23:00 02/04/18 22:59 01/30/18 22:57 Dextrose (Dextrose 50%) 25 ml Q30M PRN IV Hypoglycemia 01/28/18 17:15 02/27/18 07:14 Dextrose (Dextrose 50%) 50 ml Q30M PRN IV Hypoglycemia 01/28/18 17:15 02/27/18 07:14 Dextrose/Sodium Chloride 1,000 ml @ 75 mls/hr [id number] IV 01/28/18 17:00 02/27/18 08:59 01/30/18 22:12 Diphenhydramine HCl (Benadryl) 25 mg Q15M PRN IVP Itching 01/31/18 07:00 01/31/18 14:00 Diphenhydramine HCl (Benadryl) 25 mg Q6H PRN ORAL Itching/Pruritis 01/28/18 17:30 02/27/18 17:29 Fentanyl Citrate (Sublimaze 100 mcg/2 mL) 25 mcg Q10M PRN IV Moderate Pain (Pain Scale 4-6) 01/31/18 07:00 01/31/18 14:00 Hydralazine HCl (Apresoline) 5 mg Q30M PRN IV SBP>160 OR___/DBP>90 OR___ 01/31/18 07:00 01/31/18 14:00 Lorazepam (Ativan 2mg/ml 1ml) 1 mg Q4H PRN IV agitation 01/28/18 17:30 02/04/18 17:29 Metronidazole 100 ml @ 100 mls/hr Q8H IVPB 01/29/18 00:00 02/05/18 00:00 01/31/18 08:33 Midazolam HCl (Versed 2mg/2ml vial) 1 mg Q15M PRN IVP For Anxiety 01/31/18 07:00 01/31/18 14:00 Morphine Sulfate (Morphine Sulfate) 2 mg Q4H PRN IVP severe pain (Pain Scale 7-10) 01/28/18 17:30 02/04/18 17:29 01/28/18 20:12 Nitroglycerin (Ntg) 0.4 mg Q5M X 3 DOSES PRN SL Prn Chest Pain 01/28/18 17:00 02/27/18 07:14 Ondansetron HCl (Zofran) 4 mg Q1H PRN IVP Nausea & Vomiting 01/31/18 07:00 01/31/18 14:00 Ondansetron HCl (Zofran) 4 mg Q6H PRN IVP Nausea & Vomiting 01/28/18 17:30 02/27/18 17:29 01/30/18 12:05 Pantoprazole 80 mg/Sodium Chloride 250 ml @ 25 mls/hr Q10H IV 01/28/18 23:31 02/27/18 23:30 01/31/18 02:03 Polyethylene Glycol (Miralax) 17 gm HSPRN PRN ORAL Constipation 01/28/18 21:00 02/27/18 20:59 Sodium Chloride 1,000 ml @ 10 mls/hr Q24H IVLG 01/31/18 06:51 01/31/18 14:00 01/31/18 07:05 Temazepam (Restoril) 15 mg HSPRN PRN ORAL Insomnia 01/28/18 21:00 02/04/18 20:59 Jose Lin MD Jan 31, 2018 10:38
[2018-01-31] MEDS ORDERED: NS 500ML IVPB ONE (11:20)
[2018-01-31] MEDS ORDERED: Propofol 200mg/20ml IV ONE (11:36)
[2018-01-31] MEDS ORDERED: Lidocaine 1% MPF 10mg/ml 5ml ONE (11:36)
[2018-01-31] MEDS ORDERED: D5 1/2NS 1000ml IV ONE ×2 (11:50→17:35)
--- NOTE | 2018-01-31 11:54 | Pre-Procedure Note/Attestation ---
Pre-Procedure Note/Attestation Complete Prior to Procedure Planned Procedure: not applicable Procedure Narrative: colonoscopy Indications for Procedure Pre-Operative Diagnosis: gib Attestation I attest that I discussed the nature of the procedure; its benefits; risks and complications; and alternatives (and the risks and benefits of such alternatives ), prior to the procedure, with the patient (or the patient's legal consumer sales representative). I attest that, if there was a reasonable possibility of needing a blood transfusion, the patient (or the patient's legal consumer sales representative) was given the [facility] standardized written summary, pursuant to the [employer] Blood Safety Act ([place] Health and Safety Code # 1645, as amended). I attest that I re-evaluated the patient just prior to the surgery and that there has been no change in the patient's H&P, except as documented below: Dale Ramirez MD Jan 31, 2018 11:54
[2018-01-31] MEDS ORDERED: Isovue-300 100ml vial INJ PRN ×2 (12:15→16:30)
--- NOTE | 2018-01-31 12:38 | Immediate Post-Op Evaluation ---
Immediate Post-Op Evalulation Immediate Post-Op Evalulation Procedure: egd Date of Evaluation: Jan 31, 2018 Time of Evaluation: 12:19 IV Fluids: 200ml 0.9ns Blood Products: none Estimated Blood Loss: neglgible Blood Pressure Systolic: 149 Blood Pressure Diastolic: 92 Pulse Rate: 57 Respiratory Rate: 18 O2 Sat by Pulse Oximetry: 100 Temperature (Fahrenheit): 97.5 Pain Score (1-10): 0 Nausea: No Vomiting: No Complications none Patient Status: awake, reacts, patent Hydration Status: adequate Drug: Kirsten Doshi MD Jan 31, 2018 12:38
--- NOTE | 2018-01-31 12:40 | 48 Hour Post Anesthesia Eval ---
Post Anesthesia Evaluation Procedure: egd Date of Evaluation: Jan 31, 2018 Time of Evaluation: 12:21 Blood Pressure Systolic: 154 0: 84 Pulse Rate: 60 Respiratory Rate: 18 Temperature (Fahrenheit): 97.5 O2 Sat by Pulse Oximetry: 100 Airway: patent Nausea: No Vomiting: No Pain Intensity: 0 Hydration Status: adequate Cardiopulmonary Status: stable Mental Status/LOC: patient returned to baseline Post-Anesthesia Complications: none Follow-up care needed: N/A Kirsten Field MD Jan 31, 2018 12:40
--- NOTE | 2018-01-31 13:05 | General Progress Note ---
Assessment/Plan Status: stable, progressing Assessment/Plan anxiety d/o cognitive impairment ativan prn provided ro/st Subjective Date patient seen: Jan 31, 2018 Neurologic/Psychiatric: Reports: anxiety, depressed, emotional problems Allergies: Coded Allergies: NO KNOWN ALLERGIES (Unverified Allergy, Unknown, 04/09/15) Objective Last 24 Hour Vital Signs Date Time Temp Pulse Resp B/P (MAP) Pulse Ox O2 Delivery O2 Flow Rate FiO2 01/31/18 12:40 58 20 153/71 94 Room Air 01/31/18 12:40 60 18 100 01/31/18 12:38 57 18 100 01/31/18 12:29 60 20 154/84 94 Room Air 01/31/18 12:17 60 20 154/92 94 Room Air 01/31/18 12:12 59 20 143/90 94 Room Air 01/31/18 12:07 97.4 57 20 149/92 94 Room Air 01/31/18 09:00 Nasal Cannula 2.0 01/31/18 08:00 97.6 59 18 123/71 (88) 95 01/31/18 04:00 97.9 60 18 130/75 (93) 96 01/31/18 00:00 98.1 58 18 131/70 (90) 97 01/30/18 21:00 Nasal Cannula 2.0 01/30/18 20:00 97.7 57 18 124/73 (90) 98 01/30/18 16:00 98.0 64 19 124/71 (88) 99 Intake and Output 01/30/18 01/31/18 19:00 07:00 Intake Total 1435 ml 1320 ml Balance 1435 ml 1320 ml Intake Oral 830 ml 720 ml IV Total 605 ml 600 ml # Voids 3 5 # Bowel Movements 6 Laboratory Tests 01/30/18 21:30: Stool Occult Blood Positive 01/31/18 04:50: White Blood Count 5.5, Red Blood Count 3.93L, Hemoglobin 8.0L, Hematocrit 26.3L , Mean Corpuscular Volume 67L, Mean Corpuscular Hemoglobin 20.4L, Mean Corpuscular Hemoglobin Concent 30.5L, Red Cell Distribution Width 22.5H, Platelet Count 311, Mean Platelet Volume 6.9, Neutrophils (%) (Auto) 69.6, Lymphocytes (%) (Auto) 17.8L, Monocytes (%) (Auto) 8.8, Eosinophils (%) (Auto) 1.6, Basophils (%) (Auto) 2.2H, Sodium Level 139, Potassium Level 3.6, Chloride Level 108H, Carbon Dioxide Level 21, Anion Gap 10, Blood Urea Nitrogen 7, Creatinine 0.6, Estimat Glomerular Filtration Rate , Glucose Level 216#H, Calcium Level 7.8L Height (Feet): 5 Weight (Pounds): 102 General Appearance: no apparent distress, alert Philip Burton MD Jan 31, 2018 13:05
--- NOTE | 2018-01-31 13:06 | Psych Consult Progress Note ---
Psych Consult Progress Note Consult 01/30/18 anxiety d/o cognitive impairment ativan prn provided ro/st Vital Signs Last 24 Hour Vital Signs Date Time Temp Pulse Resp B/P (MAP) Pulse Ox O2 Delivery O2 Flow Rate FiO2 01/31/18 12:40 58 20 153/71 94 Room Air 01/31/18 12:40 60 18 100 01/31/18 12:38 57 18 100 01/31/18 12:29 60 20 154/84 94 Room Air 01/31/18 12:17 60 20 154/92 94 Room Air 01/31/18 12:12 59 20 143/90 94 Room Air 01/31/18 12:07 97.4 57 20 149/92 94 Room Air 01/31/18 09:00 Nasal Cannula 2.0 01/31/18 08:00 97.6 59 18 123/71 (88) 95 01/31/18 04:00 97.9 60 18 130/75 (93) 96 01/31/18 00:00 98.1 58 18 131/70 (90) 97 01/30/18 21:00 Nasal Cannula 2.0 01/30/18 20:00 97.7 57 18 124/73 (90) 98 01/30/18 16:00 98.0 64 19 124/71 (88) 99 Labs Laboratory Tests Test 01/30/18 21:30 01/31/18 04:50 Stool Occult Blood Positive (NEGATIVE) White Blood Count 5.5 K/UL (4.8-10.8) Red Blood Count 3.93 M/UL (4.20-5.40) L Hemoglobin 8.0 G/DL (12.0-16.0) L Hematocrit 26.3 % (37.0-47.0) L Mean Corpuscular Volume 67 FL (80-99) L Mean Corpuscular Hemoglobin 20.4 PG (27.0-31.0) L Mean Corpuscular Hemoglobin Concent 30.5 G/DL (32.0-36.0) L Red Cell Distribution Width 22.5 % (11.6-14.8) H Platelet Count 311 K/UL (150-450) Mean Platelet Volume 6.9 FL (6.5-10.1) Neutrophils (%) (Auto) 69.6 % (45.0-75.0) Lymphocytes (%) (Auto) 17.8 % (20.0-45.0) L Monocytes (%) (Auto) 8.8 % (1.0-10.0) Eosinophils (%) (Auto) 1.6 % (0.0-3.0) Basophils (%) (Auto) 2.2 % (0.0-2.0) H Sodium Level 139 MMOL/L (136-145) Potassium Level 3.6 MMOL/L (3.5-5.1) Chloride Level 108 MMOL/L (98-107) H Carbon Dioxide Level 21 MMOL/L (21-32) Anion Gap 10 mmol/L (5-15) Blood Urea Nitrogen 7 mg/dL (7-18) Creatinine 0.6 MG/DL (0.55-1.30) Estimat Glomerular Filtration Rate mL/min (>60) Glucose Level 216 MG/DL (74-106) #H Calcium Level 7.8 MG/DL (8.5-10.1) L Medications Current Medications Medications (Trade) Dose Ordered Sig/Bre Route PRN Reason Start Time Stop Time Status Last Admin Dose Admin Acetaminophen (Tylenol) 650 mg Q4H PRN ORAL fever (temp>100.5F) 01/28/18 17:30 02/27/18 17:29 Al Hydroxide/Mg Hydroxide (Mylanta II) 30 ml Q6H PRN ORAL dyspepsia 01/28/18 17:30 02/27/18 17:29 Al Hydroxide/Mg Hydroxide (Mylanta) 15 ml Q1H PRN ORAL gi upset 01/31/18 07:00 01/31/18 14:00 Atropine Sulfate (Atropine) 0.5 mg Q5M PRN IV bpm less than 45 01/31/18 07:00 01/31/18 14:00 Barium Sulfate (Readi-Cat 2) 450 ml NOW PRN ORAL Radiology Procedure 01/31/18 12:15 02/02/18 12:05 Dextrose (Dextrose 50%) 25 ml Q30M PRN IV Hypoglycemia 01/28/18 17:15 02/27/18 07:14 Dextrose (Dextrose 50%) 50 ml Q30M PRN IV Hypoglycemia 01/28/18 17:15 02/27/18 07:14 Dextrose/Sodium Chloride 1,000 ml @ 75 mls/hr [id number] IV 01/28/18 17:00 02/27/18 08:59 01/30/18 22:12 Diphenhydramine HCl (Benadryl) 25 mg Q15M PRN IVP Itching 01/31/18 07:00 01/31/18 14:00 Diphenhydramine HCl (Benadryl) 25 mg Q6H PRN ORAL Itching/Pruritis 01/28/18 17:30 02/27/18 17:29 Fentanyl Citrate (Sublimaze 100 mcg/2 mL) 25 mcg Q10M PRN IV Moderate Pain (Pain Scale 4-6) 01/31/18 07:00 01/31/18 14:00 Folic Acid (Folate) 1 mg DAILY ORAL 02/01/18 09:00 03/03/18 08:59 Hydralazine HCl (Apresoline) 5 mg Q30M PRN IV SBP>160 OR___/DBP>90 OR___ 01/31/18 07:00 01/31/18 14:00 Iopamidol (Isovue-300 100ml) 100 ml NOW PRN INJ Radiology Procedure 01/31/18 12:15 02/02/18 12:14 Iron Sucrose 100 mg/Sodium Chloride 60 ml @ 240 mls/hr BEDTIME IV 01/31/18 21:00 02/02/18 21:14 Lorazepam (Ativan 2mg/ml 1ml) 1 mg Q4H PRN IV agitation 01/28/18 17:30 02/04/18 17:29 Midazolam HCl (Versed 2mg/2ml vial) 1 mg Q15M PRN IVP For Anxiety 01/31/18 07:00 01/31/18 14:00 Morphine Sulfate (Morphine Sulfate) 2 mg Q4H PRN IVP severe pain (Pain Scale 7-10) 01/28/18 17:30 02/04/18 17:29 01/28/18 20:12 Nitroglycerin (Ntg) 0.4 mg Q5M X 3 DOSES PRN SL Prn Chest Pain 01/28/18 17:00 02/27/18 07:14 Ondansetron HCl (Zofran) 4 mg Q1H PRN IVP Nausea & Vomiting 01/31/18 07:00 01/31/18 14:00 Ondansetron HCl (Zofran) 4 mg Q6H PRN IVP Nausea & Vomiting 01/28/18 17:30 02/27/18 17:29 01/30/18 12:05 Pantoprazole 80 mg/Sodium Chloride 250 ml @ 25 mls/hr Q10H IV 01/28/18 23:31 02/27/18 23:30 01/31/18 02:03 Polyethylene Glycol (Miralax) 17 gm HSPRN PRN ORAL Constipation 01/28/18 21:00 02/27/18 20:59 Sodium Chloride 1,000 ml @ 10 mls/hr Q24H IVLG 01/31/18 06:51 01/31/18 14:00 01/31/18 07:05 Temazepam (Restoril) 15 mg HSPRN PRN ORAL Insomnia 01/28/18 21:00 02/04/18 20:59 Philip Burotn MD Jan 31, 2018 13:06
[2018-01-31] MEDS: D5 1/2NS 1,000 ML IV SCH ×2 (14:18→23:42)
--- NOTE | 2018-01-31 16:52 | General Surgery Progress Note ---
General Surgery-Progress Note Subjective Additional Comments colonoscopy today with noted tumor. Objective Last 24 Hour Vital Signs Date Time Temp Pulse Resp B/P (MAP) Pulse Ox O2 Delivery O2 Flow Rate FiO2 01/31/18 16:38 97.6 58 18 135/73 (93) 95 01/31/18 12:40 58 20 153/71 94 Room Air 01/31/18 12:40 60 18 100 01/31/18 12:38 57 18 100 01/31/18 12:29 60 20 154/84 94 Room Air 01/31/18 12:17 60 20 154/92 94 Room Air 01/31/18 12:12 59 20 143/90 94 Room Air 01/31/18 12:07 97.4 57 20 149/92 94 Room Air 01/31/18 09:00 Nasal Cannula 2.0 01/31/18 08:00 97.6 59 18 123/71 (88) 95 01/31/18 04:00 97.9 60 18 130/75 (93) 96 01/31/18 00:00 98.1 58 18 131/70 (90) 97 01/30/18 21:00 Nasal Cannula 2.0 01/30/18 20:00 97.7 57 18 124/73 (90) 98 I&O Intake and Output 01/30/18 01/31/18 19:00 07:00 Intake Total 1435 ml 1320 ml Balance 1435 ml 1320 ml Intake Oral 830 ml 720 ml IV Total 605 ml 600 ml # Voids 3 5 # Bowel Movements 6 Drains: none Cardiovascular: RSR Respiratory: clear Abdomen: soft, flat, non-tender, present bowel sounds Extremities: no cyanosis Laboratory Tests Test 01/30/18 21:30 01/31/18 04:50 Stool Occult Blood Positive (NEGATIVE) White Blood Count 5.5 K/UL (4.8-10.8) Red Blood Count 3.93 M/UL (4.20-5.40) L Hemoglobin 8.0 G/DL (12.0-16.0) L Hematocrit 26.3 % (37.0-47.0) L Mean Corpuscular Volume 67 FL (80-99) L Mean Corpuscular Hemoglobin 20.4 PG (27.0-31.0) L Mean Corpuscular Hemoglobin Concent 30.5 G/DL (32.0-36.0) L Red Cell Distribution Width 22.5 % (11.6-14.8) H Platelet Count 311 K/UL (150-450) Mean Platelet Volume 6.9 FL (6.5-10.1) Neutrophils (%) (Auto) 69.6 % (45.0-75.0) Lymphocytes (%) (Auto) 17.8 % (20.0-45.0) L Monocytes (%) (Auto) 8.8 % (1.0-10.0) Eosinophils (%) (Auto) 1.6 % (0.0-3.0) Basophils (%) (Auto) 2.2 % (0.0-2.0) H Sodium Level 139 MMOL/L (136-145) Potassium Level 3.6 MMOL/L (3.5-5.1) Chloride Level 108 MMOL/L (98-107) H Carbon Dioxide Level 21 MMOL/L (21-32) Anion Gap 10 mmol/L (5-15) Blood Urea Nitrogen 7 mg/dL (7-18) Creatinine 0.6 MG/DL (0.55-1.30) Estimat Glomerular Filtration Rate mL/min (>60) Glucose Level 216 MG/DL (74-106) #H Calcium Level 7.8 MG/DL (8.5-10.1) L Plan Problems: (1) Abdominal pain Assessment & Plan: abdominal pain, n/v, cholelithiasis, choledocholithiasis afebrile, HD stable, labs resolved. US/CT/MRCP noted anemia -colonoscopy with noted tumor -okay for diet from surgical standpoint -pending CT scan -pending path results -trend labs -cont Abx -will follow with recs. thank you for this consultation. Henrique Alejo Jan 31, 2018 16:52
--- NOTE | 2018-01-31 17:42 | Internal Med Progress Note ---
Subjective Date of Service: Jan 31, 2018 Physician Name Tashi Martin Attending Physician Mauricio Lopez MD Current Medications Medications (Trade) Dose Ordered Sig/Bre Route PRN Reason Start Time Stop Time Status Last Admin Dose Admin Acetaminophen (Tylenol) 650 mg Q4H PRN ORAL fever (temp>100.5F) 01/28/18 17:30 02/27/18 17:29 Al Hydroxide/Mg Hydroxide (Mylanta II) 30 ml Q6H PRN ORAL dyspepsia 01/28/18 17:30 02/27/18 17:29 Barium Sulfate (Readi-Cat 2) 450 ml NOW PRN ORAL Radiology Procedure 01/31/18 12:15 02/02/18 12:05 Dextrose (Dextrose 50%) 25 ml Q30M PRN IV Hypoglycemia 01/28/18 17:15 02/27/18 07:14 Dextrose (Dextrose 50%) 50 ml Q30M PRN IV Hypoglycemia 01/28/18 17:15 02/27/18 07:14 Dextrose/Sodium Chloride 1,000 ml @ 75 mls/hr [id number] IV 01/28/18 17:00 02/27/18 08:59 01/30/18 22:12 Diphenhydramine HCl (Benadryl) 25 mg Q6H PRN ORAL Itching/Pruritis 01/28/18 17:30 02/27/18 17:29 Folic Acid (Folate) 1 mg DAILY ORAL 02/01/18 09:00 03/03/18 08:59 Iopamidol (Isovue-300 100ml) 100 ml NOW PRN INJ Radiology Procedure 01/31/18 12:15 02/02/18 12:14 Iron Sucrose 100 mg/Sodium Chloride 60 ml @ 240 mls/hr BEDTIME IV 01/31/18 21:00 02/02/18 21:14 Lorazepam (Ativan 2mg/ml 1ml) 1 mg Q4H PRN IV agitation 01/28/18 17:30 02/04/18 17:29 Morphine Sulfate (Morphine Sulfate) 2 mg Q4H PRN IVP severe pain (Pain Scale 7-10) 01/28/18 17:30 02/04/18 17:29 01/28/18 20:12 Nitroglycerin (Ntg) 0.4 mg Q5M X 3 DOSES PRN SL Prn Chest Pain 01/28/18 17:00 02/27/18 07:14 Ondansetron HCl (Zofran) 4 mg Q6H PRN IVP Nausea & Vomiting 01/28/18 17:30 02/27/18 17:29 01/30/18 12:05 Pantoprazole 80 mg/Sodium Chloride 250 ml @ 25 mls/hr Q10H IV 01/28/18 23:31 02/27/18 23:30 01/31/18 02:03 Polyethylene Glycol (Miralax) 17 gm HSPRN PRN ORAL Constipation 01/28/18 21:00 02/27/18 20:59 Temazepam (Restoril) 15 mg HSPRN PRN ORAL Insomnia 01/28/18 21:00 02/04/18 20:59 Allergies: Coded Allergies: NO KNOWN ALLERGIES (Unverified Allergy, Unknown, 04/09/15) ROS Limited/Unobtainable: No Constitutional: Reports: no symptoms HEENT: Reports: no symptoms Cardiovascular: Reports: no symptoms Respiratory: Reports: no symptoms Gastrointestinal/Abdominal: Reports: abdominal pain Genitourinary: Reports: no symptoms Neurologic/Psychiatric: Reports: no symptoms Subjective 82 YO F admitted with epigastric pain. Now gastrointestinal hemorrhage and severe anemia. Also common bile duct stone. Cover for Int Med-Dr Lopez. S/P endoscopy 01/28/18. S/P Colonoscopy 01/31/18 Objective Last Vital Signs Date Time Temp Pulse Resp B/P (MAP) Pulse Ox O2 Delivery O2 Flow Rate FiO2 01/31/18 16:38 97.6 58 18 135/73 (93) 95 01/31/18 12:40 Room Air 01/31/18 09:00 2.0 Laboratory Tests Test 01/30/18 21:30 01/31/18 04:50 Stool Occult Blood Positive (NEGATIVE) White Blood Count 5.5 K/UL (4.8-10.8) Red Blood Count 3.93 M/UL (4.20-5.40) L Hemoglobin 8.0 G/DL (12.0-16.0) L Hematocrit 26.3 % (37.0-47.0) L Mean Corpuscular Volume 67 FL (80-99) L Mean Corpuscular Hemoglobin 20.4 PG (27.0-31.0) L Mean Corpuscular Hemoglobin Concent 30.5 G/DL (32.0-36.0) L Red Cell Distribution Width 22.5 % (11.6-14.8) H Platelet Count 311 K/UL (150-450) Mean Platelet Volume 6.9 FL (6.5-10.1) Neutrophils (%) (Auto) 69.6 % (45.0-75.0) Lymphocytes (%) (Auto) 17.8 % (20.0-45.0) L Monocytes (%) (Auto) 8.8 % (1.0-10.0) Eosinophils (%) (Auto) 1.6 % (0.0-3.0) Basophils (%) (Auto) 2.2 % (0.0-2.0) H Sodium Level 139 MMOL/L (136-145) Potassium Level 3.6 MMOL/L (3.5-5.1) Chloride Level 108 MMOL/L (98-107) H Carbon Dioxide Level 21 MMOL/L (21-32) Anion Gap 10 mmol/L (5-15) Blood Urea Nitrogen 7 mg/dL (7-18) Creatinine 0.6 MG/DL (0.55-1.30) Estimat Glomerular Filtration Rate mL/min (>60) Glucose Level 216 MG/DL (74-106) #H Calcium Level 7.8 MG/DL (8.5-10.1) L Intake and Output 01/30/18 01/31/18 19:00 07:00 Intake Total 1435 ml 1320 ml Balance 1435 ml 1320 ml Intake Oral 830 ml 720 ml IV Total 605 ml 600 ml # Voids 3 5 # Bowel Movements 6 Objective General Appearance: WD/WN, no apparent distress, alert EENT: PERRL/EOMI, normal ENT inspection Neck: non-tender, normal alignment, supple, normal inspection Cardiovascular: normal peripheral pulses, normal rate, regular rhythm, no gallop/murmur, no JVD Respiratory/Chest: chest wall non-tender, lungs clear, normal breath sounds, no respiratory distress, no accessory muscle use Abdomen: soft, decreased bowel sounds, guarding, tender Extremities: normal range of motion, non-tender 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 S/P colonoscopy on 01/31/18 (2) Abdominal pain (3) Vomiting (4) Choledocholithiasis Assessment & Plan: See endoscopy report. See surgery consult note (5) Severe anemia Assessment & Plan: Due to GI bleed. See GI note. S/P transfusion 3 units PRBC (6) Common bile duct stone Assessment & Plan: ERCP on hold - see GI consult. Status: not improved Tashi Martin MD Jan 31, 2018 17:42
[2018-01-31] MEDS ORDERED: Lidocaine 1% Plain 30 ml INJ PRN (18:30)
[2018-01-31] MEDS ORDERED: Heparin 2000 units/Ns 1000ml INJ PRN (18:36)
[2018-01-31] MEDS: Dyna-Hex 2% Top Sol 2oz TOPIC SCH (20:00)
[2018-01-31] MEDS: Iron Sucrose 100 MG in NS 55 ML IV SCH (21:00)
[2018-02-01] VITALS: BP 129/67
[2018-02-01 04:30] VITALS: BP 137/70
[2018-02-01 07:45] LABS: BASOPHILS % (AUTO) 1.6 % (0.0-2.0); EOSINOPHILS % (AUTO) 1.1 % (0.0-3.0); HEMATOCRIT 28.7 % (37.0-47.0); LYMPHOCYTES % (AUTO) 18.2 % (20.0-45.0); MEAN CORPUSCULAR VOLUME 67 FL (80-99); MONOCYTES % (AUTO) 8.6 % (1.0-10.0); NEUTROPHILS % (AUTO) 70.4 % (45.0-75.0); PLATELET COUNT 348 K/UL (150-450); RED BLOOD COUNT 4.29 M/UL (4.20-5.40); RED CELL DISTRIBUTION WIDTH 22.2 % (11.6-14.8); WHITE BLOOD COUNT 5.7 K/UL (4.8-10.8)
[2018-02-01 07:54] LABS: ANION GAP 8 mmol/L (5-15); BLOOD UREA NITROGEN 5 mg/dL (7-18); CALCIUM 8.1 MG/DL (8.5-10.1); CARBON DIOXIDE 25 MMOL/L (21-32); CHLORIDE 108 MMOL/L (98-107); CREATININE 0.6 MG/DL (0.55-1.30); POTASSIUM 3.3 MMOL/L (3.5-5.1); SODIUM 141 MMOL/L (136-145)
[2018-02-01 08:00] VITALS: BP 152/78
--- NOTE | 2018-02-01 08:56 | Endoscopy Procedure Note ---
Endoscopy Procedure Note General Indication for Procedure: gib Procedures Performed: colonoscopy Operative Findings/Diagnosis: colon mass Specimen: yes Pt Tolerated Procedure Well: Yes Estimated Blood Loss: none Anesthesia Anesthesiologist: talia Anesthesia: MAC Inserted Devices Implant(s) used?: No Quality Did scope reach the cecum?: No GI Core Measures 50 yrs or older w/o bx or poly: Not Applicable 10yrs. F/U not recommended: Not Applicable Dale Ramirez MD Feb 01, 2018 08:56
[2018-02-01] MEDS ORDERED: Isovue-300 100ml vial INJ PRN (09:00)
--- NOTE | 2018-02-01 11:09 | Diagnostic Imaging Report ---
Indication: Abdominal pain Technique: Continuous helical transaxial imaging of the abdomen and pelvis was obtained from the lung bases to the pubic symphysis during intravenous contrast administration. Coronal 2-D reformats were also obtained. Study obtained in a Siemens sensation [address] Automatic Exposure Control was utilized. Total Dose length Product (DLP): 568.[address] Dose Index Volume (CTDIvol): 11.42 mGy Comparison: CT abdomen an MRCP 01/28/2018 Findings: Patient has obvious stones on recent MRCP 01/28/2018. This is appreciated on the current study. This is in part due to the amount of artifact in the upper abdomen. The gallbladder is contracted with small stones noted. The biliary ducts do not appear significant dilated currently Trace bilateral pleural effusions are present with associated mild atelectasis. Generalized cardiomegaly noted. Aorta is mildly calcified. Tiny cyst noted in the upper pole the left kidney. There is no hydronephrosis. Moderate aortoiliac calcifications and tortuosity noted. Generalized anasarca noted with subcutaneous edema noted throughout the visualized abdominal wall. No evidence of bowel obstruction. No significant free fluid identified. No free air identified. There is a cystic mass in the left adnexa measuring 4.4 x 4.0 cm presumably ovarian in nature. An atrophic uterus is noted. The urinary bladder is unremarkable. The appendix is not identified. Impression: Previously demonstrated choledocholithiasis is not readily appreciated on the current examination presumably on the basis of interval ERCP. No significant biliary ductal dilatation is appreciated currently although the CBD is not well seen. Gallbladder is contracted with stones. 4.4 x 4 cm left ovarian hypodense mass, probably cystic. Other incidental findings as discussed above The CT scanner at [facility] is accredited by the [employer] and the scans are performed using dose optimization techniques as appropriate to a performed exam including Automatic Exposure control.
--- NOTE | 2018-02-01 11:45 | Procedure Note ---
DATE OF PROCEDURE: 01/31/2018 SURGEON: Dale Ramirez M.D. REFERRING PHYSICIAN: Mauricio Lopez M.D. PROCEDURE: Attempted colonoscopy, only flexible was performed. INSTRUMENT: Olympus adult flexible colonoscope. INDICATION: GI bleeding. The procedure, risks, benefits, and possible consequences, including hemorrhage, aspiration, perforation and infection, and alternative treatments, were explained to the patient/legal guardian by Dr. Dale Ramirez and the patient/legal guardian understood and accepted these risks. DESCRIPTION OF PROCEDURE: After informed consent was obtained and the patient was adequately sedated, first rectal exam was performed which was normal. Then, the scope was advanced from the rectum into an area about 40 cm from the anal verge in the sigmoid colon. At this point, there was an ulcerative mass and we could not pass the scope beyond this point. Multiple biopsies from this mass at 40 cm from the anal verge was performed. The patient also had a large polyp pedunculated at about 30 cm from the anal verge. This polyp, as I mentioned, was pedunculated and measured roughly about 1.5 cm in size. Given it was very close to the mass in the sigmoid, we decided not to cut it at this time given the patient has bleeding. Maybe if she needs surgery, both can be taken out at the same time. At this time, the scope was gradually retrieved and the procedure was terminated. SUMMARY OF FINDINGS: 1. A large mass ulcerative at about 40 cm from the anal verge, status post biopsy. 2. A 1.5 cm pedunculated polyp at 30 cm from the anal verge. RECOMMENDATIONS: Follow up biopsy results. CT of the abdomen and pelvis with contrast for evaluation for metastasis. The patient at this time needs surgical evaluation if there is no evidence of metastasis and possibly oncology followup. I want to thank Dr. Mauricio Lopez for this kind referral. Dlae Ramirez M.D. DR: Abdullahi JOB#: [id number] CC: Mauricio Lopez M.D.; Fax#: [phone]
[2018-02-01 12:00] VITALS: BP 139/81
--- NOTE | 2018-02-01 13:12 | GI Progress Note ---
Assessment/Plan Problems: (1) Colon cancer ICD Codes: C18.9 - Malignant neoplasm of colon, unspecified SNOMED: 734532240 (2) Common bile duct stone ICD Codes: K80.50 - Calculus of bile duct without cholangitis or cholecystitis without obstruction SNOMED: 057434334 (3) Severe anemia ICD Codes: D64.9 - Anemia, unspecified SNOMED: 058497637 (4) Vomiting ICD Codes: R11.10 - Vomiting, unspecified SNOMED: 282797148 Qualifiers: Qualified Codes: R11.2 - Nausea with vomiting, unspecified (5) Choledocholithiasis ICD Codes: K80.50 - Calculus of bile duct without cholangitis or cholecystitis without obstruction SNOMED: 656758222 (6) Abdominal pain ICD Codes: R10.9 - Unspecified abdominal pain SNOMED: 15034252 Qualifiers: Qualified Codes: R10.13 - Epigastric pain (7) Anemia ICD Codes: D64.9 - Anemia, unspecified SNOMED: 969762758 Qualifiers: Qualified Codes: D64.9 - Anemia, unspecified (8) GI bleed ICD Codes: K92.2 - Gastrointestinal hemorrhage, unspecified SNOMED: 05517210 Qualifiers: Qualified Codes: K92.2 - Gastrointestinal hemorrhage, unspecified (9) Abdominal gas pain ICD Codes: R14.1 - Gas pain SNOMED: 97547184 Status: stable Status Narrative Discussed with Dr. Ramirez. Assessment/Plan SUMMARY OF FINDINGS: 1. A large mass ulcerative at about 40 cm from the anal verge, status post biopsy. 2. A 1.5 cm pedunculated polyp at 30 cm from the anal verge. CT AP reviewed >> choledocholithiasis present, no metastasis noted. follow up biopsy results >> d/w with pathologist is adenocarcinoma H. Pylori positive >> needs outpatient treatment RECOMMENDATIONS: ERCP tomorrow. - NPO @ [place]. surgery recommendations to follow procedure The patient was seen and examined at bedside and all new and available data was reviewed in the patients chart. I agree with the above findings, impression and plan. (Patient seen earlier today. Signature stamp does not reflect patient encounter time.). - Dale Ramirez MD Subjective Gastrointestinal/Abdominal: Reports: no symptoms Objective Last 24 Hour Vital Signs Date Time Temp Pulse Resp B/P (MAP) Pulse Ox O2 Delivery O2 Flow Rate FiO2 02/01/18 12:00 98.2 61 19 139/81 (100) 95 02/01/18 09:00 Room Air 02/01/18 08:00 98.2 60 18 152/78 (102) 97 02/01/18 04:30 98.1 60 18 137/70 (92) 97 02/01/18 00:00 98.3 68 18 129/67 (87) 97 01/31/18 21:00 Room Air 01/31/18 20:33 97.8 63 16 133/76 (95) 97 01/31/18 16:38 97.6 58 18 135/73 (93) 95 Intake and Output 01/31/18 02/01/18 19:00 07:00 Intake Total 520 ml Output Total 200 ml Balance 320 ml Intake Oral 270 ml IV Total 250 ml Output Urine Total 200 ml # Voids 3 Laboratory Tests Test 02/01/18 06:25 White Blood Count 5.7 K/UL (4.8-10.8) Red Blood Count 4.29 M/UL (4.20-5.40) Hemoglobin 9.0 G/DL (12.0-16.0) L Hematocrit 28.7 % (37.0-47.0) L Mean Corpuscular Volume 67 FL (80-99) L Mean Corpuscular Hemoglobin 21.0 PG (27.0-31.0) L Mean Corpuscular Hemoglobin Concent 31.5 G/DL (32.0-36.0) L Red Cell Distribution Width 22.2 % (11.6-14.8) H Platelet Count 348 K/UL (150-450) Mean Platelet Volume 6.4 FL (6.5-10.1) L Neutrophils (%) (Auto) 70.4 % (45.0-75.0) Lymphocytes (%) (Auto) 18.2 % (20.0-45.0) L Monocytes (%) (Auto) 8.6 % (1.0-10.0) Eosinophils (%) (Auto) 1.1 % (0.0-3.0) Basophils (%) (Auto) 1.6 % (0.0-2.0) Sodium Level 141 MMOL/L (136-145) Potassium Level 3.3 MMOL/L (3.5-5.1) L Chloride Level 108 MMOL/L (98-107) H Carbon Dioxide Level 25 MMOL/L (21-32) Anion Gap 8 mmol/L (5-15) Blood Urea Nitrogen 5 mg/dL (7-18) L Creatinine 0.6 MG/DL (0.55-1.30) Estimat Glomerular Filtration Rate mL/min (>60) Glucose Level 81 MG/DL (74-106) # Calcium Level 8.1 MG/DL (8.5-10.1) L Height (Feet): 5 Weight (Pounds): 102 General Appearance: WD/WN, no apparent distress, alert, thin Cardiovascular: normal rate Respiratory/Chest: normal breath sounds, no respiratory distress Abdominal Exam: normal bowel sounds, non tender, soft Extremities: non-tender Kleber Putnam NP Feb 01, 2018 13:12
--- NOTE | 2018-02-01 14:05 | General Surgery Progress Note ---
General Surgery-Progress Note Subjective Additional Comments CT completed. possible ERCP tomorrow Objective Last 24 Hour Vital Signs Date Time Temp Pulse Resp B/P (MAP) Pulse Ox O2 Delivery O2 Flow Rate FiO2 02/01/18 12:00 98.2 61 19 139/81 (100) 95 02/01/18 09:00 Room Air 02/01/18 08:00 98.2 60 18 152/78 (102) 97 02/01/18 04:30 98.1 60 18 137/70 (92) 97 02/01/18 00:00 98.3 68 18 129/67 (87) 97 01/31/18 21:00 Room Air 01/31/18 20:33 97.8 63 16 133/76 (95) 97 01/31/18 16:38 97.6 58 18 135/73 (93) 95 I&O Intake and Output 01/31/18 02/01/18 19:00 07:00 Intake Total 520 ml Output Total 200 ml Balance 320 ml Intake Oral 270 ml IV Total 250 ml Output Urine Total 200 ml # Voids 3 Drains: none Cardiovascular: RSR Respiratory: clear Abdomen: soft, flat, non-tender, present bowel sounds Extremities: no cyanosis Laboratory Tests Test 02/01/18 06:25 White Blood Count 5.7 K/UL (4.8-10.8) Red Blood Count 4.29 M/UL (4.20-5.40) Hemoglobin 9.0 G/DL (12.0-16.0) L Hematocrit 28.7 % (37.0-47.0) L Mean Corpuscular Volume 67 FL (80-99) L Mean Corpuscular Hemoglobin 21.0 PG (27.0-31.0) L Mean Corpuscular Hemoglobin Concent 31.5 G/DL (32.0-36.0) L Red Cell Distribution Width 22.2 % (11.6-14.8) H Platelet Count 348 K/UL (150-450) Mean Platelet Volume 6.4 FL (6.5-10.1) L Neutrophils (%) (Auto) 70.4 % (45.0-75.0) Lymphocytes (%) (Auto) 18.2 % (20.0-45.0) L Monocytes (%) (Auto) 8.6 % (1.0-10.0) Eosinophils (%) (Auto) 1.1 % (0.0-3.0) Basophils (%) (Auto) 1.6 % (0.0-2.0) Sodium Level 141 MMOL/L (136-145) Potassium Level 3.3 MMOL/L (3.5-5.1) L Chloride Level 108 MMOL/L (98-107) H Carbon Dioxide Level 25 MMOL/L (21-32) Anion Gap 8 mmol/L (5-15) Blood Urea Nitrogen 5 mg/dL (7-18) L Creatinine 0.6 MG/DL (0.55-1.30) Estimat Glomerular Filtration Rate mL/min (>60) Glucose Level 81 MG/DL (74-106) # Calcium Level 8.1 MG/DL (8.5-10.1) L Plan Problems: (1) Abdominal pain Assessment & Plan: abdominal pain, n/v, cholelithiasis, choledocholithiasis afebrile, HD stable, labs resolved. US/CT/MRCP noted anemia -colonoscopy with noted tumor -okay for diet from surgical standpoint -ERCP tomorrow -pending path results - prelim adenoCa -trend labs -cont Abx -will follow with recs. thank you for this consultation. Henrique Alejo Feb 01, 2018 14:05
[2018-02-01] MEDS: D5 1/2NS 1,000 ML IV SCH (14:36)
--- NOTE | 2018-02-01 14:57 | Diagnostic Imaging Report ---
Indication: long term venous access Findings: After the indications, procedure, risks, complications, and alternatives of the procedure were explained, written informed consent was obtained. The left upper extremity was prepped with alcohol. All elements of maximal sterile barrier technique were followed including usage of a cap, mask, sterile gown, sterile gloves, hand hygiene and a large sterile sheet. Sonographic evaluation of the upper extremity was performed demonstrating a patent and compressible basilic vein. Access was obtained under real-time ultrasound guidance (with utilization of sterile gel and sterile probe cover) and digital image was saved and archived. An .018 wire was introduced. Needle exchanged for a 5 Spanish peel-away sheath. Measurements were obtained. A 5 Spanish dual-lumen Power PICC line catheter was cut to 40 cm and introduced over the wire. Peel-away sheath and wire were removed.Catheter was secured to the skin using 2-0 Prolene suture. Both ports aspirate and flush easily. Fluoroscopic images show distal tip in the superior vena cava. Total fluoroscopic time 0.1 minute Impression: Successful placement of an upper extremity PICC line catheter
--- NOTE | 2018-02-01 15:55 | Infectious Diseases Prog Note ---
Assessment/Plan Assessment/Plan ASSESSMENT: Leukocytosis (due to acute stress, gastrointestinal bleed), Sp Common bile duct stone Calculus of bile duct without cholangitis or cholecystitis without obstruction 02/01 CT: Previously demonstrated choledocholithiasis is not readily appreciated on the current examination presumably on the basis of interval ERCP. No significant biliary ductal dilatation is appreciated currently although the CBD is not well seen. Gallbladder is contracted with stones. UCX: Strp GrpB low count ( no clinical sig ) 01/28/18 EGD : Bx H pylori Gastritis 01/31 Colonoscopy : . A large mass ulcerative at about 40 cm from the anal verge , status post biopsy. A 1.5 cm pedunculated polyp at 30 cm from the anal verge. anemia HTN PLAN: H pylori Gastritis Rx , defer to GI 01/31 SP cefepime and Flagyl d# 4 Monitor CBC. Monitor BMP. follow GI recommendations ERCP tomorrow . Monitor cultures (blood) GenSx following Subjective Allergies: Coded Allergies: NO KNOWN ALLERGIES (Unverified Allergy, Unknown, 04/09/15) Subjective Afebrile no new complain Objective Vital Signs Last 24 Hour Vital Signs Date Time Temp Pulse Resp B/P (MAP) Pulse Ox O2 Delivery O2 Flow Rate FiO2 02/01/18 12:00 98.2 61 19 139/81 (100) 95 02/01/18 09:00 Room Air 02/01/18 08:00 98.2 60 18 152/78 (102) 97 02/01/18 04:30 98.1 60 18 137/70 (92) 97 02/01/18 00:00 98.3 68 18 129/67 (87) 97 01/31/18 21:00 Room Air 01/31/18 20:33 97.8 63 16 133/76 (95) 97 01/31/18 16:38 97.6 58 18 135/73 (93) 95 Height (Feet): 5 Weight (Pounds): 102 HEENT: atraumatic Respiratory/Chest: normal breath sounds Cardiovascular: regular rhythm Abdomen: soft, non tender Laboratory Tests Test 02/01/18 06:25 White Blood Count 5.7 K/UL (4.8-10.8) Red Blood Count 4.29 M/UL (4.20-5.40) Hemoglobin 9.0 G/DL (12.0-16.0) L Hematocrit 28.7 % (37.0-47.0) L Mean Corpuscular Volume 67 FL (80-99) L Mean Corpuscular Hemoglobin 21.0 PG (27.0-31.0) L Mean Corpuscular Hemoglobin Concent 31.5 G/DL (32.0-36.0) L Red Cell Distribution Width 22.2 % (11.6-14.8) H Platelet Count 348 K/UL (150-450) Mean Platelet Volume 6.4 FL (6.5-10.1) L Neutrophils (%) (Auto) 70.4 % (45.0-75.0) Lymphocytes (%) (Auto) 18.2 % (20.0-45.0) L Monocytes (%) (Auto) 8.6 % (1.0-10.0) Eosinophils (%) (Auto) 1.1 % (0.0-3.0) Basophils (%) (Auto) 1.6 % (0.0-2.0) Sodium Level 141 MMOL/L (136-145) Potassium Level 3.3 MMOL/L (3.5-5.1) L Chloride Level 108 MMOL/L (98-107) H Carbon Dioxide Level 25 MMOL/L (21-32) Anion Gap 8 mmol/L (5-15) Blood Urea Nitrogen 5 mg/dL (7-18) L Creatinine 0.6 MG/DL (0.55-1.30) Estimat Glomerular Filtration Rate mL/min (>60) Glucose Level 81 MG/DL (74-106) # Calcium Level 8.1 MG/DL (8.5-10.1) L Current Medications Medications (Trade) Dose Ordered Sig/Bre Route PRN Reason Start Time Stop Time Status Last Admin Dose Admin Acetaminophen (Tylenol) 650 mg Q4H PRN ORAL fever (temp>100.5F) 01/28/18 17:30 02/27/18 17:29 Al Hydroxide/Mg Hydroxide (Mylanta II) 30 ml Q6H PRN ORAL dyspepsia 01/28/18 17:30 02/27/18 17:29 Barium Sulfate (Readi-Cat 2) 450 ml NOW PRN ORAL Radiology Procedure 01/31/18 12:15 02/02/18 12:05 Barium Sulfate (Readi-Cat 2) 450 ml NOW PRN ORAL Radiology Procedure 02/01/18 09:00 02/02/18 23:59 Chlorhexidine Gluconate (Shazia-Hex 2%) 1 applic DAILY@2000 TOPIC 01/31/18 20:00 03/02/18 19:59 Dextrose (Dextrose 50%) 25 ml Q30M PRN IV Hypoglycemia 01/28/18 17:15 02/27/18 07:14 Dextrose (Dextrose 50%) 50 ml Q30M PRN IV Hypoglycemia 01/28/18 17:15 02/27/18 07:14 Dextrose/Sodium Chloride 1,000 ml @ 75 mls/hr [id number] IV 01/28/18 17:00 02/27/18 08:59 02/01/18 14:36 Diphenhydramine HCl (Benadryl) 25 mg Q6H PRN ORAL Itching/Pruritis 01/28/18 17:30 02/27/18 17:29 Folic Acid (Folate) 1 mg DAILY ORAL 02/01/18 09:00 03/03/18 08:59 02/01/18 10:36 Heparin Sodium/ Sodium Chloride (Heparin 2000 units/Ns 1000ml premix) 2,000 unit ONCE PRN INJ PICC 01/31/18 18:36 02/01/18 23:59 Iopamidol (Isovue-300 100ml) 100 ml NOW PRN INJ Radiology Procedure 01/31/18 12:15 02/02/18 12:14 Iopamidol (Isovue-300 100ml) 100 ml NOW PRN INJ Radiology Procedure 02/01/18 09:00 02/02/18 23:59 Iron Sucrose 100 mg/Sodium Chloride 60 ml @ 240 mls/hr BEDTIME IV 01/31/18 21:00 02/02/18 21:14 01/31/18 21:00 Lidocaine HCl (Xylocaine 1% 30ml) 30 ml ONCE PRN INJ PICC 01/31/18 18:30 02/01/18 23:59 Lorazepam (Ativan 2mg/ml 1ml) 1 mg Q4H PRN IV agitation 01/28/18 17:30 02/04/18 17:29 Morphine Sulfate (Morphine Sulfate) 2 mg Q4H PRN IVP severe pain (Pain Scale 7-10) 01/28/18 17:30 02/04/18 17:29 01/28/18 20:12 Nitroglycerin (Ntg) 0.4 mg Q5M X 3 DOSES PRN SL Prn Chest Pain 01/28/18 17:00 02/27/18 07:14 Ondansetron HCl (Zofran) 4 mg Q6H PRN IVP Nausea & Vomiting 01/28/18 17:30 02/27/18 17:29 01/30/18 12:05 Pantoprazole 80 mg/Sodium Chloride 250 ml @ 25 mls/hr Q10H IV 01/28/18 23:31 02/27/18 23:30 01/31/18 02:03 Polyethylene Glycol (Miralax) 17 gm HSPRN PRN ORAL Constipation 01/28/18 21:00 02/27/18 20:59 Temazepam (Restoril) 15 mg HSPRN PRN ORAL Insomnia 01/28/18 21:00 02/04/18 20:59 Jose Lin MD Feb 01, 2018 15:55
[2018-02-01 16:00] VITALS: BP 142/80
--- NOTE | 2018-02-01 17:24 | Internal Med Progress Note ---
Subjective Date of Service: Feb 01, 2018 Physician Name Martin,Tashi Attending Physician Mauricio Lopez MD Current Medications Medications (Trade) Dose Ordered Sig/Bre Route PRN Reason Start Time Stop Time Status Last Admin Dose Admin Acetaminophen (Tylenol) 650 mg Q4H PRN ORAL fever (temp>100.5F) 01/28/18 17:30 02/27/18 17:29 Al Hydroxide/Mg Hydroxide (Mylanta II) 30 ml Q6H PRN ORAL dyspepsia 01/28/18 17:30 02/27/18 17:29 Barium Sulfate (Readi-Cat 2) 450 ml NOW PRN ORAL Radiology Procedure 01/31/18 12:15 02/02/18 12:05 Barium Sulfate (Readi-Cat 2) 450 ml NOW PRN ORAL Radiology Procedure 02/01/18 09:00 02/02/18 23:59 Chlorhexidine Gluconate (Shazia-Hex 2%) 1 applic DAILY@2000 TOPIC 01/31/18 20:00 03/02/18 19:59 Dextrose (Dextrose 50%) 25 ml Q30M PRN IV Hypoglycemia 01/28/18 17:15 02/27/18 07:14 Dextrose (Dextrose 50%) 50 ml Q30M PRN IV Hypoglycemia 01/28/18 17:15 02/27/18 07:14 Dextrose/Sodium Chloride 1,000 ml @ 75 mls/hr [id number] IV 01/28/18 17:00 02/27/18 08:59 02/01/18 14:36 Diphenhydramine HCl (Benadryl) 25 mg Q6H PRN ORAL Itching/Pruritis 01/28/18 17:30 02/27/18 17:29 Folic Acid (Folate) 1 mg DAILY ORAL 02/01/18 09:00 03/03/18 08:59 02/01/18 10:36 Heparin Sodium/ Sodium Chloride (Heparin 2000 units/Ns 1000ml premix) 2,000 unit ONCE PRN INJ PICC 01/31/18 18:36 02/01/18 23:59 Iopamidol (Isovue-300 100ml) 100 ml NOW PRN INJ Radiology Procedure 01/31/18 12:15 02/02/18 12:14 Iopamidol (Isovue-300 100ml) 100 ml NOW PRN INJ Radiology Procedure 02/01/18 09:00 02/02/18 23:59 Iron Sucrose 100 mg/Sodium Chloride 60 ml @ 240 mls/hr BEDTIME IV 01/31/18 21:00 02/02/18 21:14 01/31/18 21:00 Lidocaine HCl (Xylocaine 1% 30ml) 30 ml ONCE PRN INJ PICC 01/31/18 18:30 02/01/18 23:59 Lorazepam (Ativan 2mg/ml 1ml) 1 mg Q4H PRN IV agitation 01/28/18 17:30 02/04/18 17:29 Morphine Sulfate (Morphine Sulfate) 2 mg Q4H PRN IVP severe pain (Pain Scale 7-10) 01/28/18 17:30 02/04/18 17:29 01/28/18 20:12 Nitroglycerin (Ntg) 0.4 mg Q5M X 3 DOSES PRN SL Prn Chest Pain 01/28/18 17:00 02/27/18 07:14 Ondansetron HCl (Zofran) 4 mg Q6H PRN IVP Nausea & Vomiting 01/28/18 17:30 02/27/18 17:29 01/30/18 12:05 Pantoprazole 80 mg/Sodium Chloride 250 ml @ 25 mls/hr Q10H IV 01/28/18 23:31 02/27/18 23:30 01/31/18 02:03 Polyethylene Glycol (Miralax) 17 gm HSPRN PRN ORAL Constipation 01/28/18 21:00 02/27/18 20:59 Temazepam (Restoril) 15 mg HSPRN PRN ORAL Insomnia 01/28/18 21:00 02/04/18 20:59 Allergies: Coded Allergies: NO KNOWN ALLERGIES (Unverified Allergy, Unknown, 04/09/15) Subjective 82 YO F admitted with epigastric pain. Now gastrointestinal hemorrhage and severe anemia. Also common bile duct stone. Cover for Int Med-Dr Lopez. S/P endoscopy 01/28/18. S/P Colonoscopy 01/31/18. ERCP scheduled for 02/02/18. Objective Last Vital Signs Date Time Temp Pulse Resp B/P (MAP) Pulse Ox O2 Delivery O2 Flow Rate FiO2 02/01/18 16:00 98.4 64 19 142/80 (100) 98 02/01/18 09:00 Room Air 01/31/18 09:00 2.0 Laboratory Tests Test 02/01/18 06:25 White Blood Count 5.7 K/UL (4.8-10.8) Red Blood Count 4.29 M/UL (4.20-5.40) Hemoglobin 9.0 G/DL (12.0-16.0) L Hematocrit 28.7 % (37.0-47.0) L Mean Corpuscular Volume 67 FL (80-99) L Mean Corpuscular Hemoglobin 21.0 PG (27.0-31.0) L Mean Corpuscular Hemoglobin Concent 31.5 G/DL (32.0-36.0) L Red Cell Distribution Width 22.2 % (11.6-14.8) H Platelet Count 348 K/UL (150-450) Mean Platelet Volume 6.4 FL (6.5-10.1) L Neutrophils (%) (Auto) 70.4 % (45.0-75.0) Lymphocytes (%) (Auto) 18.2 % (20.0-45.0) L Monocytes (%) (Auto) 8.6 % (1.0-10.0) Eosinophils (%) (Auto) 1.1 % (0.0-3.0) Basophils (%) (Auto) 1.6 % (0.0-2.0) Sodium Level 141 MMOL/L (136-145) Potassium Level 3.3 MMOL/L (3.5-5.1) L Chloride Level 108 MMOL/L (98-107) H Carbon Dioxide Level 25 MMOL/L (21-32) Anion Gap 8 mmol/L (5-15) Blood Urea Nitrogen 5 mg/dL (7-18) L Creatinine 0.6 MG/DL (0.55-1.30) Estimat Glomerular Filtration Rate mL/min (>60) Glucose Level 81 MG/DL (74-106) # Calcium Level 8.1 MG/DL (8.5-10.1) L Intake and Output 01/31/18 02/01/18 19:00 07:00 Intake Total 520 ml Output Total 200 ml Balance 320 ml Intake Oral 270 ml IV Total 250 ml Output Urine Total 200 ml # Voids 3 Objective General Appearance: WD/WN, no apparent distress, alert EENT: PERRL/EOMI, normal ENT inspection Neck: non-tender, normal alignment, supple, normal inspection Cardiovascular: normal peripheral pulses, normal rate, regular rhythm, no gallop/murmur, no JVD Respiratory/Chest: chest wall non-tender, lungs clear, normal breath sounds, no respiratory distress, no accessory muscle use Abdomen: soft, decreased bowel sounds, guarding, tender Extremities: normal range of motion, non-tender Neurologic: actuarial 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 S/P colonoscopy on 01/31/18 (2) Abdominal pain (3) Vomiting (4) Choledocholithiasis Assessment & Plan: ERCP scheduled for 02/02/18. See endoscopy report. See surgery consult note (5) Severe anemia Assessment & Plan: Due to GI bleed. See GI note. S/P transfusion 3 units PRBC (6) Common bile duct stone Assessment & Plan: Await ERCP on 02/02/18 - see GI consult. Tashi Martin MD Feb 01, 2018 17:24
[2018-02-01] MEDS: Pantoprazole 80 MG in NS 250 ML IV SCH (17:42)
--- NOTE | 2018-02-01 18:31 | Cardiology Report ---
APPROVED REPORT EKG Measurement Heart [id number] Sinus bradycardia Otherwise normal ECG
[2018-02-01 20:00] VITALS: BP 124/69
[2018-02-01] MEDS: Iron Sucrose 100 MG in NS 55 ML IV SCH (20:39)
[2018-02-01] MEDS: Dyna-Hex 2% Top Sol 2oz TOPIC SCH (20:39)
--- NOTE | 2018-02-01 23:26 | General Progress Note ---
Assessment/Plan Status: stable, progressing Assessment/Plan anxiety d/o cognitive impairment ativan prn provided ro/st Subjective Neurologic/Psychiatric: Reports: anxiety, depressed, emotional problems Allergies: Coded Allergies: NO KNOWN ALLERGIES (Unverified Allergy, Unknown, 04/09/15) Objective Last 24 Hour Vital Signs Date Time Temp Pulse Resp B/P (MAP) Pulse Ox O2 Delivery O2 Flow Rate FiO2 02/01/18 21:00 Room Air 02/01/18 20:00 97.8 62 19 124/69 (87) 99 02/01/18 16:00 98.4 64 19 142/80 (100) 98 02/01/18 12:00 98.2 61 19 139/81 (100) 95 02/01/18 09:00 Room Air 02/01/18 08:00 98.2 60 18 152/78 (102) 97 02/01/18 04:30 98.1 60 18 137/70 (92) 97 02/01/18 00:00 98.3 68 18 129/67 (87) 97 Intake and Output 01/31/18 02/01/18 18:59 06:59 Intake Total 520 ml Output Total 200 ml Balance 320 ml Intake Oral 270 ml IV Total 250 ml Output Urine Total 200 ml # Voids 3 Laboratory Tests 02/01/18 06:25: White Blood Count 5.7, Red Blood Count 4.29, Hemoglobin 9.0L, Hematocrit 28.7L, Mean Corpuscular Volume 67L, Mean Corpuscular Hemoglobin 21.0L, Mean Corpuscular Hemoglobin Concent 31.5L, Red Cell Distribution Width 22.2H, Platelet Count 348, Mean Platelet Volume 6.4L, Neutrophils (%) (Auto) 70.4, Lymphocytes (%) (Auto) 18.2L, Monocytes (%) (Auto) 8.6, Eosinophils (%) (Auto) 1.1, Basophils (%) (Auto) 1.6, Sodium Level 141, Potassium Level 3.3L, Chloride Level 108H, Carbon Dioxide Level 25, Anion Gap 8, Blood Urea Nitrogen 5L, Creatinine 0.6, Estimat Glomerular Filtration Rate , Glucose Level 81#, Calcium Level 8.1L Height (Feet): 5 Weight (Pounds): 102 General Appearance: no apparent distress, alert Neurologic: depressed affect Philip Burton MD Feb 01, 2018 23:26
[2018-02-02] VITALS (11 sets, daily range): BP systolic 111–145; BP diastolic 61–75
[2018-02-02] MEDS: D5 1/2NS 1,000 ML IV SCH ×2 (04:07→17:00)
[2018-02-02] MEDS: Pantoprazole 80 MG in NS 250 ML IV SCH ×2 (04:07→13:44)
[2018-02-02 06:07] LABS: EOSINOPHILS % (AUTO) 1.7 % (0.0-3.0); HEMATOCRIT 28.4 % (37.0-47.0); HEMOGLOBIN 8.6 G/DL (12.0-16.0); LYMPHOCYTES % (AUTO) 22.7 % (20.0-45.0); MEAN CORPUSCULAR VOLUME 67 FL (80-99); MONOCYTES % (AUTO) 11.9 % (1.0-10.0); NEUTROPHILS % (AUTO) 62.7 % (45.0-75.0); PLATELET COUNT 306 K/UL (150-450); RED BLOOD COUNT 4.25 M/UL (4.20-5.40); RED CELL DISTRIBUTION WIDTH 22.5 % (11.6-14.8); WHITE BLOOD COUNT 5.7 K/UL (4.8-10.8)
[2018-02-02 06:10] LABS: ANION GAP 6 mmol/L (5-15); BLOOD UREA NITROGEN 5 mg/dL (7-18); CARBON DIOXIDE 26 MMOL/L (21-32); CHLORIDE 109 MMOL/L (98-107); CREATININE 0.6 MG/DL (0.55-1.30); POTASSIUM 3.4 MMOL/L (3.5-5.1); SODIUM 141 MMOL/L (136-145)
[2018-02-02 06:14] LABS: INR 1.2 (0.9-1.1)
[2018-02-02] MEDS ORDERED: fentaNYL 100 mcg/2 mL IV ONE ×2 (07:07→07:31)
[2018-02-02] MEDS ORDERED: Iothalamate Meglumine 60% 30ML INJ ONE ×2 (07:10→07:50)
[2018-02-02] MEDS ORDERED: NS 500ML IVPB ONE (07:30)
[2018-02-02] MEDS ORDERED: Propofol 200mg/20ml IV ONE (07:31)
[2018-02-02] MEDS ORDERED: Lidocaine 1% MPF 10mg/ml 5ml ONE (07:31)
--- NOTE | 2018-02-02 07:36 | Pre-Procedure Note/Attestation ---
Pre-Procedure Note/Attestation Complete Prior to Procedure Planned Procedure: not applicable Procedure Narrative: ercp Indications for Procedure Pre-Operative Diagnosis: choledocholithiasis Attestation I attest that I discussed the nature of the procedure; its benefits; risks and complications; and alternatives (and the risks and benefits of such alternatives ), prior to the procedure, with the patient (or the patient's legal marketing sales representative). I attest that, if there was a reasonable possibility of needing a blood transfusion, the patient (or the patient's legal marketing sales representative) was given the [facility] standardized written summary, pursuant to the [place] [employer] Blood Safety Act ([place] Health and Safety Code # 1645, as amended). I attest that I re-evaluated the patient just prior to the surgery and that there has been no change in the patient's H&P, except as documented below: Dale Ramirez MD Feb 02, 2018 07:36
--- NOTE | 2018-02-02 08:08 | Anethesia Preoperative Eval ---
Anesthesia Pre-op PMH/ROS General Date of Evaluation: Feb 02, 2018 Time of Evaluation: 07:30 Anesthesiologist: Elena Valerio CRNA ASA Score: ASA 3 Mallampati Score Class I : Soft palate, uvula, fauces, pillars visible Class II: Soft palate, uvula, fauces visible Class III: Soft palate, base of uvula visible Class IV: Only hard plate visible Mallampati Classification: Class II Surgeon: James Diagnosis: Abdominal pain, common bile duct stones Surgical Procedure: ERCP Anesthesia History: none Family History: no anesthesia problems Allergies: Coded Allergies: NO KNOWN ALLERGIES (Unverified Allergy, Unknown, 04/09/15) Medications: see eMAR Patient NPO?: Yes NPO Date: Feb 02, 2018 NPO Time: 00:00 Past Medical History Cardiovascular: Reports: HTN Gastrointestinal/Genitourinary: Reports: other - metastatic colon CA; cholelistesis, common bile duct stones, s/p GI bleed Neurologic/Psychiatric: Reports: dementia, depression/anxiety Hematology/Immune: Reports: anemia Musculoskeletal/Integumentary: Reports: OA PMH Narrative: as above PSxH Narrative: unknown Anesthesia Pre-op Phys. Exam Physician Exam Last Vital Signs Date Time Temp Pulse Resp B/P (MAP) Pulse Ox O2 Delivery O2 Flow Rate FiO2 02/02/18 04:00 98.1 62 17 128/72 (90) 97 02/01/18 21:00 Room Air 01/31/18 09:00 2.0 Constitutional: NAD Neurologic: CN 2-12 intact, other - confused Cardiovascular: RRR Respiratory: CTA Gastrointestinal: S/NT/ND Airway Exam Mallampati Score: Class II MO: full TMD: > 3 FB ROM: full Teeth: missing Dentures: no upper, no lower Anesthesia Pre-op A/P Labs Hematology Test 02/02/18 05:45 White Blood Count 5.7 K/UL (4.8-10.8) Red Blood Count 4.25 M/UL (4.20-5.40) Hemoglobin 8.6 G/DL (12.0-16.0) L Hematocrit 28.4 % (37.0-47.0) L Mean Corpuscular Volume 67 FL (80-99) L Mean Corpuscular Hemoglobin 20.3 PG (27.0-31.0) L Mean Corpuscular Hemoglobin Concent 30.4 G/DL (32.0-36.0) L Red Cell Distribution Width 22.5 % (11.6-14.8) H Platelet Count 306 K/UL (150-450) Mean Platelet Volume 6.3 FL (6.5-10.1) L Neutrophils (%) (Auto) 62.7 % (45.0-75.0) Lymphocytes (%) (Auto) 22.7 % (20.0-45.0) Monocytes (%) (Auto) 11.9 % (1.0-10.0) H Eosinophils (%) (Auto) 1.7 % (0.0-3.0) Basophils (%) (Auto) 1.0 % (0.0-2.0) Coagulation Test 02/02/18 05:45 Prothrombin Time 12.7 SEC (9.30-11.50) H Prothromb Time International Ratio 1.2 (0.9-1.1) H Activated Partial Thromboplast Time 32 SEC (23-33) Chemistry Test 02/02/18 05:45 Sodium Level 141 MMOL/L (136-145) Potassium Level 3.4 MMOL/L (3.5-5.1) L Chloride Level 109 MMOL/L (98-107) H Carbon Dioxide Level 26 MMOL/L (21-32) Anion Gap 6 mmol/L (5-15) Blood Urea Nitrogen 5 mg/dL (7-18) L Creatinine 0.6 MG/DL (0.55-1.30) Estimat Glomerular Filtration Rate mL/min (>60) Glucose Level 88 MG/DL (74-106) Calcium Level 8.0 MG/DL (8.5-10.1) L Studies Pre-op Studies: EKG Risk Assessment & Plan Assessment: asa 3, ok to proceed Plan: MAC Status Change Before Surgery: No Pre-Antibiotics Given Within 1 Hr of Incision: Elena Joshi CRNA Feb 02, 2018 08:08
--- NOTE | 2018-02-02 09:27 | Endoscopy Procedure Note ---
Endoscopy Procedure Note General Indication for Procedure: choledocholithiasis Procedures Performed: ERCP Operative Findings/Diagnosis: same Specimen: none Pt Tolerated Procedure Well: Yes Estimated Blood Loss: none Anesthesia Anesthesiologist: see chart Anesthesia: MAC Inserted Devices Implant(s) used?: No GI Core Measures 50 yrs or older w/o bx or poly: Not Applicable 10yrs. F/U not recommended: Not Applicable Dale Ramirez MD Feb 02, 2018 09:27
--- NOTE | 2018-02-02 09:30 | Immediate Post-Op Evaluation ---
Immediate Post-Op Evalulation Immediate Post-Op Evalulation Procedure: ERCP Date of Evaluation: Feb 02, 2018 Time of Evaluation: 09:25 IV Fluids: 0.9% NS 450 mo Estimated Blood Loss: none Blood Pressure Systolic: 118 Blood Pressure Diastolic: 72 Pulse Rate: 61 Respiratory Rate: 18 O2 Sat by Pulse Oximetry: 96 Temperature (Fahrenheit): 97.9 Pain Score (1-10): 0 Nausea: No Vomiting: No Complications none Patient Status: awake, patent Hydration Status: adequate Given Within 1 Hr of Incision: Elena Joshi CRNA Feb 02, 2018 09:30
--- NOTE | 2018-02-02 11:45 | Procedure Note ---
DATE OF PROCEDURE: 02/02/2018 SURGEON: Dale Ramirez M.D. ANESTHESIOLOGIST: IRMA. REFERRING PHYSICIAN: Mauricio Lopez M.D. PROCEDURE: ERCP with sphincterotomy, stone removal, dilation, lithotripsy. ANESTHESIA: Per Elena SOLIS. INSTRUMENT: Olympus adult ERCP scope. INDICATION: Choledocholithiasis. The procedure, risks, benefits, and possible consequences, including hemorrhage, aspiration, perforation and infection, and alternative treatments, were explained to the patient/legal guardian by Dr. Dale Ramirez and the patient/legal guardian understood and accepted these risks. DESCRIPTION OF PROCEDURE: After informed consent was obtained and the patient was adequately sedated, ERCP scope was advanced from the mouth into the second portion of the duodenum. This procedure was very challenging given the anatomy of the second portion of duodenum. Every time we found the ampulla, we had to go through long position in order to keep the scope in the duodenum, otherwise the scope would return to the stomach quickly. Using a sphincterotome initially, we cannulated the common bile duct. Initial cholangiogram showed dilated common bile duct to about 12 mm, multiple stones in the common bile duct at least three, cystic duct was patent, gallbladder was full, there were some also stones in the gallbladder. Then, using a sphincterotome, we performed 80% sphincterotomy. As we were trying to extend sphincterotomy, we lost our access again and we could not go back in and access again. At this time, we decided to change the patient's position to supine position to get a better angle. That was successful, still challenging. We were able to cannulate the common bile duct. At this time, we decided to dilate the ampulla using a 1 cm balloon. There was minimum bleeding after the dilation. The bleeding subsequently stopped on its own without any intervention. Then going back with a sphincterotome, we cannulated the common bile duct. We placed a wire. Then over the wire, we used a balloon to sweep the duct multiple times. A total of 3 stones were removed from the common bile duct. After all the stones were removed, the common bile duct was cleared and balloon occlusion cholangiogram showed no further filling defect. The flow of contrast from the common bile duct into the duodenum was excellent, so no stent was placed. I forgot to mention one step that we actually tried to do lithotripsy because we could not at one point pass the balloon beyond the stone. We thought maybe with a stiffer tip of the basket, we were able to pass that, but that was also unsuccessful. SUMMARY OF FINDINGS: Very challenging ERCP, most of it was done in the supine position, but successful status post ERCP, sphincterotomy, dilation, balloon assist, and stone extraction. RECOMMENDATIONS: The patient to be started on clear-liquid diet and advance as tolerated. Monitor labs. The patient needs to follow with surgery for both colon cancer surgery and also for cholecystectomy. I want to thank Dr. Mauricio Lopez for this kind referral. Dale Ramirez M.D. DRNettie Fernando JOB#: [id number] CC: Mauricio Lopez M.D.; Fax#: [phone]
--- NOTE | 2018-02-02 12:41 | Infectious Diseases Prog Note ---
Assessment/Plan Assessment/Plan ASSESSMENT: Leukocytosis (due to acute stress, gastrointestinal bleed), Sp Common bile duct stone Calculus of bile duct without cholangitis or cholecystitis without obstruction 02/02 Sp ERCP:SP removal of Bill stones 02/01 CT: Previously demonstrated choledocholithiasis is not readily appreciated on the current examination presumably on the basis of interval ERCP. No significant biliary ductal dilatation is appreciated currently although the CBD is not well seen. Gallbladder is contracted with stones. 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 A large mass ulcerative at about 40 cm from the anal verge , status post biopsy. A 1.5 cm pedunculated polyp at 30 cm from the anal verge. anemia HTN PLAN: H pylori Gastritis Rx , defer to GI 01/31 SP cefepime and Flagyl d# 4 Monitor CBC. Monitor BMP. follow GI Monitor cultures (blood) GenSx following (possible cholcystectomy and rectal Sx ) Subjective Allergies: Coded Allergies: NO KNOWN ALLERGIES (Unverified Allergy, Unknown, 04/09/15) Subjective Afebrile no abd pain Objective Vital Signs Last 24 Hour Vital Signs Date Time Temp Pulse Resp B/P (MAP) Pulse Ox O2 Delivery O2 Flow Rate FiO2 02/02/18 12:00 97.6 61 18 139/75 (96) 96 02/02/18 11:00 96.6 56 20 145/75 (98) 96 02/02/18 10:00 96.6 55 18 136/73 (94) 100 02/02/18 09:55 Nasal Cannula 3.0 02/02/18 09:50 98.7 56 23 132/61 100 Nasal Cannula 3 02/02/18 09:35 53 20 125/62 100 Nasal Cannula 3 02/02/18 09:30 58 20 111/66 96 Nasal Cannula 3 02/02/18 09:30 61 18 96 02/02/18 09:25 97.9 61 18 118/72 96 Nasal Cannula 3 02/02/18 04:00 98.1 62 17 128/72 (90) 97 02/02/18 00:00 97.9 66 18 124/74 (91) 98 02/01/18 21:00 Room Air 02/01/18 20:00 97.8 62 19 124/69 (87) 99 02/01/18 16:00 98.4 64 19 142/80 (100) 98 Height (Feet): 5 Weight (Pounds): 112 HEENT: anicteric Respiratory/Chest: no respiratory distress Cardiovascular: regular rhythm Abdomen: no organomegaly Laboratory Tests Test 02/02/18 05:45 White Blood Count 5.7 K/UL (4.8-10.8) Red Blood Count 4.25 M/UL (4.20-5.40) Hemoglobin 8.6 G/DL (12.0-16.0) L Hematocrit 28.4 % (37.0-47.0) L Mean Corpuscular Volume 67 FL (80-99) L Mean Corpuscular Hemoglobin 20.3 PG (27.0-31.0) L Mean Corpuscular Hemoglobin Concent 30.4 G/DL (32.0-36.0) L Red Cell Distribution Width 22.5 % (11.6-14.8) H Platelet Count 306 K/UL (150-450) Mean Platelet Volume 6.3 FL (6.5-10.1) L Neutrophils (%) (Auto) 62.7 % (45.0-75.0) Lymphocytes (%) (Auto) 22.7 % (20.0-45.0) Monocytes (%) (Auto) 11.9 % (1.0-10.0) H Eosinophils (%) (Auto) 1.7 % (0.0-3.0) Basophils (%) (Auto) 1.0 % (0.0-2.0) Prothrombin Time 12.7 SEC (9.30-11.50) H Prothromb Time International Ratio 1.2 (0.9-1.1) H Activated Partial Thromboplast Time 32 SEC (23-33) Sodium Level 141 MMOL/L (136-145) Potassium Level 3.4 MMOL/L (3.5-5.1) L Chloride Level 109 MMOL/L (98-107) H Carbon Dioxide Level 26 MMOL/L (21-32) Anion Gap 6 mmol/L (5-15) Blood Urea Nitrogen 5 mg/dL (7-18) L Creatinine 0.6 MG/DL (0.55-1.30) Estimat Glomerular Filtration Rate mL/min (>60) Glucose Level 88 MG/DL (74-106) Calcium Level 8.0 MG/DL (8.5-10.1) L Current Medications Medications (Trade) Dose Ordered Sig/Bre Route PRN Reason Start Time Stop Time Status Last Admin Dose Admin Acetaminophen (Tylenol) 650 mg Q4H PRN ORAL fever (temp>100.5F) 01/28/18 17:30 02/27/18 17:29 Al Hydroxide/Mg Hydroxide (Mylanta II) 30 ml Q6H PRN ORAL dyspepsia 01/28/18 17:30 02/27/18 17:29 Barium Sulfate (Readi-Cat 2) 450 ml NOW PRN ORAL Radiology Procedure 02/01/18 09:00 02/02/18 15:00 Chlorhexidine Gluconate (Shazia-Hex 2%) 1 applic DAILY@2000 TOPIC 01/31/18 20:00 03/02/18 19:59 02/01/18 20:39 Dextrose (Dextrose 50%) 25 ml Q30M PRN IV Hypoglycemia 01/28/18 17:15 02/27/18 07:14 Dextrose (Dextrose 50%) 50 ml Q30M PRN IV Hypoglycemia 01/28/18 17:15 02/27/18 07:14 Dextrose/Sodium Chloride 1,000 ml @ 75 mls/hr [id number] IV 01/28/18 17:00 02/27/18 08:59 02/02/18 04:07 Diphenhydramine HCl (Benadryl) 25 mg Q6H PRN ORAL Itching/Pruritis 01/28/18 17:30 02/27/18 17:29 Folic Acid (Folate) 1 mg DAILY ORAL 02/01/18 09:00 03/03/18 08:59 02/01/18 10:36 Iopamidol (Isovue-300 100ml) 100 ml NOW PRN INJ Radiology Procedure 02/01/18 09:00 02/02/18 15:00 Iron Sucrose 100 mg/Sodium Chloride 60 ml @ 240 mls/hr BEDTIME IV 01/31/18 21:00 02/02/18 21:14 02/01/18 20:39 Lorazepam (Ativan 2mg/ml 1ml) 1 mg Q4H PRN IV agitation 01/28/18 17:30 02/04/18 17:29 Morphine Sulfate (Morphine Sulfate) 2 mg Q4H PRN IVP severe pain (Pain Scale 7-10) 01/28/18 17:30 02/04/18 17:29 01/28/18 20:12 Nitroglycerin (Ntg) 0.4 mg Q5M X 3 DOSES PRN SL Prn Chest Pain 01/28/18 17:00 02/27/18 07:14 Ondansetron HCl (Zofran) 4 mg Q6H PRN IVP Nausea & Vomiting 01/28/18 17:30 02/27/18 17:29 02/02/18 10:06 Pantoprazole 80 mg/Sodium Chloride 250 ml @ 25 mls/hr Q10H IV 01/28/18 23:31 02/02/18 15:00 02/02/18 04:07 Polyethylene Glycol (Miralax) 17 gm HSPRN PRN ORAL Constipation 01/28/18 21:00 02/27/18 20:59 Temazepam (Restoril) 15 mg HSPRN PRN ORAL Insomnia 01/28/18 21:00 02/04/18 20:59 Jose Lin MD Feb 02, 2018 12:41
--- NOTE | 2018-02-02 12:49 | General Surgery Progress Note ---
General Surgery-Progress Note Subjective Additional Comments s/p ercp with stone extraction Objective Last 24 Hour Vital Signs Date Time Temp Pulse Resp B/P (MAP) Pulse Ox O2 Delivery O2 Flow Rate FiO2 02/02/18 12:00 97.6 61 18 139/75 (96) 96 02/02/18 11:00 96.6 56 20 145/75 (98) 96 02/02/18 10:00 96.6 55 18 136/73 (94) 100 02/02/18 09:55 Nasal Cannula 3.0 02/02/18 09:50 98.7 56 23 132/61 100 Nasal Cannula 3 02/02/18 09:35 53 20 125/62 100 Nasal Cannula 3 02/02/18 09:30 58 20 111/66 96 Nasal Cannula 3 02/02/18 09:30 61 18 96 02/02/18 09:25 97.9 61 18 118/72 96 Nasal Cannula 3 02/02/18 04:00 98.1 62 17 128/72 (90) 97 02/02/18 00:00 97.9 66 18 124/74 (91) 98 02/01/18 21:00 Room Air 02/01/18 20:00 97.8 62 19 124/69 (87) 99 02/01/18 16:00 98.4 64 19 142/80 (100) 98 I&O Intake and Output 02/01/18 02/02/18 19:00 07:00 Intake Total 350 ml 1100 ml Balance 350 ml 1100 ml Intake Oral 250 ml IV Total 100 ml 1100 ml # Voids 3 6 Drains: none Cardiovascular: RSR Respiratory: clear Abdomen: soft, flat, non-tender, present bowel sounds Extremities: no cyanosis Laboratory Tests Test 02/02/18 05:45 White Blood Count 5.7 K/UL (4.8-10.8) Red Blood Count 4.25 M/UL (4.20-5.40) Hemoglobin 8.6 G/DL (12.0-16.0) L Hematocrit 28.4 % (37.0-47.0) L Mean Corpuscular Volume 67 FL (80-99) L Mean Corpuscular Hemoglobin 20.3 PG (27.0-31.0) L Mean Corpuscular Hemoglobin Concent 30.4 G/DL (32.0-36.0) L Red Cell Distribution Width 22.5 % (11.6-14.8) H Platelet Count 306 K/UL (150-450) Mean Platelet Volume 6.3 FL (6.5-10.1) L Neutrophils (%) (Auto) 62.7 % (45.0-75.0) Lymphocytes (%) (Auto) 22.7 % (20.0-45.0) Monocytes (%) (Auto) 11.9 % (1.0-10.0) H Eosinophils (%) (Auto) 1.7 % (0.0-3.0) Basophils (%) (Auto) 1.0 % (0.0-2.0) Prothrombin Time 12.7 SEC (9.30-11.50) H Prothromb Time International Ratio 1.2 (0.9-1.1) H Activated Partial Thromboplast Time 32 SEC (23-33) Sodium Level 141 MMOL/L (136-145) Potassium Level 3.4 MMOL/L (3.5-5.1) L Chloride Level 109 MMOL/L (98-107) H Carbon Dioxide Level 26 MMOL/L (21-32) Anion Gap 6 mmol/L (5-15) Blood Urea Nitrogen 5 mg/dL (7-18) L Creatinine 0.6 MG/DL (0.55-1.30) Estimat Glomerular Filtration Rate mL/min (>60) Glucose Level 88 MG/DL (74-106) Calcium Level 8.0 MG/DL (8.5-10.1) L Plan Problems: (1) Abdominal pain Assessment & Plan: abdominal pain, n/v, cholelithiasis, choledocholithiasis afebrile, HD stable, labs resolved. US/CT/MRCP noted anemia -colonoscopy with noted tumor -s/p ercp with stone extraction -okay for diet from surgical standpoint -pending path results - prelim adenoCa -trend labs -cont Abx -will follow with recs. thank you for this consultation. Henrique Alejo Feb 02, 2018 12:49
[2018-02-02] MEDS: Morphine Sulfate 2mg/ml Inj IVP PRN ×2 (14:06→18:21)
--- NOTE | 2018-02-02 14:14 | Diagnostic Imaging Report ---
INDICATION: Pain, intraoperative TECHNIQUE: Intraoperative imaging during ERCP by Dr. Ramirez Fluoroscopy time: 9.5 minutes Total dose: 806 dGym2 Total number of images: 13 COMPARISON: None FINDINGS: Interstitial images demonstrate opacification of the common bile duct, which is dilated, all with multiple low signal filling defects consistent with choledocholithiasis described on prior cross-sectional imaging studies. Filling defects are also seen within the cystic duct and within the gallbladder lumen. Subsequent images demonstrate balloon dilatation of the sphincter and deployment of a stone extraction balloon. IMPRESSION: Intraoperative imaging, as described
[2018-02-02] MEDS ORDERED: Tubing IV Secondary IV ONE (15:37)
[2018-02-02] MEDS ORDERED: D5 1/2NS 1000ml IV ONE (15:37)
[2018-02-02] MEDS ORDERED: NS 275ml ONE (15:37)
--- NOTE | 2018-02-02 18:29 | Internal Med Progress Note ---
Subjective Date of Service: Feb 02, 2018 Physician Name VeronicaTashi Attending Physician Mauricio Lopez MD Current Medications Medications (Trade) Dose Ordered Sig/Bre Route PRN Reason Start Time Stop Time Status Last Admin Dose Admin Acetaminophen (Tylenol) 650 mg Q4H PRN ORAL fever (temp>100.5F) 01/28/18 17:30 02/27/18 17:29 Al Hydroxide/Mg Hydroxide (Mylanta II) 30 ml Q6H PRN ORAL dyspepsia 01/28/18 17:30 02/27/18 17:29 02/02/18 14:11 Chlorhexidine Gluconate (Shazia-Hex 2%) 1 applic DAILY@2000 TOPIC 01/31/18 20:00 03/02/18 19:59 02/01/18 20:39 Dextrose (Dextrose 50%) 25 ml Q30M PRN IV Hypoglycemia 01/28/18 17:15 02/27/18 07:14 Dextrose (Dextrose 50%) 50 ml Q30M PRN IV Hypoglycemia 01/28/18 17:15 02/27/18 07:14 Dextrose/Sodium Chloride 1,000 ml @ 75 mls/hr [id number] IV 01/28/18 17:00 02/27/18 08:59 02/02/18 04:07 Diphenhydramine HCl (Benadryl) 25 mg Q6H PRN ORAL Itching/Pruritis 01/28/18 17:30 02/27/18 17:29 Folic Acid (Folate) 1 mg DAILY ORAL 02/01/18 09:00 03/03/18 08:59 02/01/18 10:36 Iron Sucrose 100 mg/Sodium Chloride 60 ml @ 240 mls/hr BEDTIME IV 01/31/18 21:00 02/02/18 21:14 02/01/18 20:39 Lorazepam (Ativan 2mg/ml 1ml) 1 mg Q4H PRN IV agitation 01/28/18 17:30 02/04/18 17:29 Morphine Sulfate (Morphine Sulfate) 2 mg Q4H PRN IVP severe pain (Pain Scale 7-10) 01/28/18 17:30 02/04/18 17:29 02/02/18 18:21 Nitroglycerin (Ntg) 0.4 mg Q5M X 3 DOSES PRN SL Prn Chest Pain 01/28/18 17:00 02/27/18 07:14 Ondansetron HCl (Zofran) 4 mg Q6H PRN IVP Nausea & Vomiting 01/28/18 17:30 02/27/18 17:29 02/02/18 17:59 Polyethylene Glycol (Miralax) 17 gm HSPRN PRN ORAL Constipation 01/28/18 21:00 02/27/18 20:59 Potassium Chloride 100 ml @ 100 mls/hr Q1H IVPB 02/02/18 15:00 02/02/18 19:59 02/02/18 18:20 Temazepam (Restoril) 15 mg HSPRN PRN ORAL Insomnia 01/28/18 21:00 02/04/18 20:59 Allergies: Coded Allergies: NO KNOWN ALLERGIES (Unverified Allergy, Unknown, 04/09/15) ROS Limited/Unobtainable: No Constitutional: Reports: no symptoms HEENT: Reports: no symptoms Cardiovascular: Reports: no symptoms Respiratory: Reports: no symptoms Gastrointestinal/Abdominal: Reports: abdominal pain Genitourinary: Reports: no symptoms Neurologic/Psychiatric: Reports: no symptoms Subjective 82 YO F admitted with epigastric pain. Now gastrointestinal hemorrhage and severe anemia. Also common bile duct stone. Cover for Int Med-Dr Lopez. S/P endoscopy 01/28/18. S/P Colonoscopy 01/31/18. S/P ERCP 02/02/18. Objective Last Vital Signs Date Time Temp Pulse Resp B/P (MAP) Pulse Ox O2 Delivery O2 Flow Rate FiO2 02/02/18 16:00 98.6 61 18 129/70 (89) 95 02/02/18 09:55 Nasal Cannula 3.0 Laboratory Tests Test 02/02/18 05:45 White Blood Count 5.7 K/UL (4.8-10.8) Red Blood Count 4.25 M/UL (4.20-5.40) Hemoglobin 8.6 G/DL (12.0-16.0) L Hematocrit 28.4 % (37.0-47.0) L Mean Corpuscular Volume 67 FL (80-99) L Mean Corpuscular Hemoglobin 20.3 PG (27.0-31.0) L Mean Corpuscular Hemoglobin Concent 30.4 G/DL (32.0-36.0) L Red Cell Distribution Width 22.5 % (11.6-14.8) H Platelet Count 306 K/UL (150-450) Mean Platelet Volume 6.3 FL (6.5-10.1) L Neutrophils (%) (Auto) 62.7 % (45.0-75.0) Lymphocytes (%) (Auto) 22.7 % (20.0-45.0) Monocytes (%) (Auto) 11.9 % (1.0-10.0) H Eosinophils (%) (Auto) 1.7 % (0.0-3.0) Basophils (%) (Auto) 1.0 % (0.0-2.0) Prothrombin Time 12.7 SEC (9.30-11.50) H Prothromb Time International Ratio 1.2 (0.9-1.1) H Activated Partial Thromboplast Time 32 SEC (23-33) Sodium Level 141 MMOL/L (136-145) Potassium Level 3.4 MMOL/L (3.5-5.1) L Chloride Level 109 MMOL/L (98-107) H Carbon Dioxide Level 26 MMOL/L (21-32) Anion Gap 6 mmol/L (5-15) Blood Urea Nitrogen 5 mg/dL (7-18) L Creatinine 0.6 MG/DL (0.55-1.30) Estimat Glomerular Filtration Rate mL/min (>60) Glucose Level 88 MG/DL (74-106) Calcium Level 8.0 MG/DL (8.5-10.1) L Intake and Output 02/01/18 02/02/18 18:59 06:59 Intake Total 275 ml 1075 ml Balance 275 ml 1075 ml Intake Oral 250 ml IV Total 25 ml 1075 ml # Voids 3 6 Objective General Appearance: WD/WN, no apparent distress, alert EENT: PERRL/EOMI, normal ENT inspection Neck: non-tender, normal alignment, supple, normal inspection Cardiovascular: normal peripheral pulses, normal rate, regular rhythm, no gallop/murmur, no JVD Respiratory/Chest: chest wall non-tender, lungs clear, normal breath sounds, no respiratory distress, no accessory muscle use Abdomen: soft, decreased bowel sounds, guarding, tender Extremities: normal range of motion, non-tender Neurologic: steward/stewardess smoke room II-XII 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 S/P colonoscopy on 01/31/18 (2) Abdominal pain (3) Vomiting (4) Choledocholithiasis Assessment & Plan: S/P ERCP 02/02/18. See endoscopy report. See surgery consult note (5) Severe anemia Assessment & Plan: Due to GI bleed. See GI note. S/P transfusion 3 units PRBC (6) Common bile duct stone Assessment & Plan: Await ERCP on 02/02/18 - see GI consult. 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 Oncology consult; surgery consult. Status: not improved Tashi Martin MD Feb 02, 2018 18:29
[2018-02-02] MEDS: Iron Sucrose 100 MG in NS 55 ML IV SCH (20:01)
[2018-02-02] MEDS: Dyna-Hex 2% Top Sol 2oz TOPIC SCH (20:01)
--- NOTE | 2018-02-02 23:00 | General Progress Note ---
Assessment/Plan Status: stable, progressing Assessment/Plan anxiety d/o cognitive impairment ativan prn provided ro/st Subjective Neurologic/Psychiatric: Reports: anxiety, depressed, emotional problems, headache Allergies: Coded Allergies: NO KNOWN ALLERGIES (Unverified Allergy, Unknown, 04/09/15) Objective Last 24 Hour Vital Signs Date Time Temp Pulse Resp B/P (MAP) Pulse Ox O2 Delivery O2 Flow Rate FiO2 02/02/18 21:00 Room Air 02/02/18 20:00 97.4 63 18 140/73 (95) 95 02/02/18 16:00 98.6 61 18 129/70 (89) 95 02/02/18 12:00 97.6 61 18 139/75 (96) 96 02/02/18 11:00 96.6 56 20 145/75 (98) 96 02/02/18 10:00 96.6 55 18 136/73 (94) 100 02/02/18 09:55 Nasal Cannula 3.0 02/02/18 09:50 98.7 56 23 132/61 100 Nasal Cannula 3 02/02/18 09:35 53 20 125/62 100 Nasal Cannula 3 02/02/18 09:30 58 20 111/66 96 Nasal Cannula 3 02/02/18 09:30 61 18 96 02/02/18 09:25 97.9 61 18 118/72 96 Nasal Cannula 3 02/02/18 04:00 98.1 62 17 128/72 (90) 97 02/02/18 00:00 97.9 66 18 124/74 (91) 98 Intake and Output 02/01/18 02/02/18 19:00 07:00 Intake Total 350 ml 1100 ml Balance 350 ml 1100 ml Intake Oral 250 ml IV Total 100 ml 1100 ml # Voids 3 6 Laboratory Tests 02/02/18 05:45: White Blood Count 5.7, Red Blood Count 4.25, Hemoglobin 8.6L, Hematocrit 28.4L, Mean Corpuscular Volume 67L, Mean Corpuscular Hemoglobin 20.3L, Mean Corpuscular Hemoglobin Concent 30.4L, Red Cell Distribution Width 22.5H, Platelet Count 306, Mean Platelet Volume 6.3L, Neutrophils (%) (Auto) 62.7, Lymphocytes (%) (Auto) 22.7, Monocytes (%) (Auto) 11.9H, Eosinophils (%) (Auto) 1.7, Basophils (%) (Auto) 1.0, Prothrombin Time 12.7H, Prothromb Time International Ratio 1.2H, Activated Partial Thromboplast Time 32, Sodium Level 141, Potassium Level 3.4L, Chloride Level 109H, Carbon Dioxide Level 26, Anion Gap 6, Blood Urea Nitrogen 5L, Creatinine 0.6, Estimat Glomerular Filtration Rate , Glucose Level 88, Calcium Level 8.0L Height (Feet): 5 Weight (Pounds): 112 General Appearance: WD/WN, no apparent distress, alert Philip Burton MD Feb 02, 2018 23:00
[2018-02-03] VITALS: BP 137/72
[2018-02-03] MEDS: Morphine Sulfate 2mg/ml Inj IVP PRN (00:32)
[2018-02-03] MEDS: D5 1/2NS 1,000 ML IV SCH ×2 (03:38→19:43)
[2018-02-03 04:00] VITALS: BP 135/72
[2018-02-03 06:17] LABS: EOSINOPHILS % (AUTO) 0.5 % (0.0-3.0); HEMATOCRIT 28.8 % (37.0-47.0); HEMOGLOBIN 8.7 G/DL (12.0-16.0); LYMPHOCYTES % (AUTO) 19.1 % (20.0-45.0); MEAN CORPUSCULAR VOLUME 67 FL (80-99); MONOCYTES % (AUTO) 9.8 % (1.0-10.0); NEUTROPHILS % (AUTO) 69.6 % (45.0-75.0); PLATELET COUNT 297 K/UL (150-450); RED BLOOD COUNT 4.28 M/UL (4.20-5.40); RED CELL DISTRIBUTION WIDTH 23.4 % (11.6-14.8); WHITE BLOOD COUNT 7.3 K/UL (4.8-10.8)
[2018-02-03 06:39] LABS: ALANINE AMINOTRANSFERASE 18 U/L (12-78); ALBUMIN 2.6 G/DL (3.4-5.0); ALBUMIN/GLOBULIN RATIO 0.7 (1.0-2.7); ALKALINE PHOSPHATASE 78 U/L (46-116); ASPARTATE AMINO TRANSFERASE 16 U/L (15-37); BILIRUBIN,TOTAL 0.4 MG/DL (0.2-1.0); BLOOD UREA NITROGEN 3 mg/dL (7-18); CALCIUM 8.4 MG/DL (8.5-10.1); CHLORIDE 107 MMOL/L (98-107); CREATININE 0.5 MG/DL (0.55-1.30); POTASSIUM 3.7 MMOL/L (3.5-5.1); SODIUM 139 MMOL/L (136-145)
[2018-02-03 07:18] LABS: CARBON DIOXIDE 26 MMOL/L (21-32)
[2018-02-03 08:00] VITALS: BP 115/66
[2018-02-03] MEDS ORDERED: Isovue-300 100ml vial INJ PRN (10:00)
--- NOTE | 2018-02-03 10:40 | 48 Hour Post Anesthesia Eval ---
Post Anesthesia Evaluation Procedure: ERCP Date of Evaluation: Feb 03, 2018 Time of Evaluation: 10:39 Blood Pressure Systolic: 115 0: 66 Pulse Rate: 64 Respiratory Rate: 18 Temperature (Fahrenheit): 98.2 O2 Sat by Pulse Oximetry: 99 Airway: patent Nausea: No Vomiting: No Pain Intensity: 0 Hydration Status: adequate Cardiopulmonary Status: stable Mental Status/LOC: patient returned to baseline Follow-up Care/Observations: per hospitalists Post-Anesthesia Complications: none Follow-up care needed: N/A Elena Valerio CRNA Feb 03, 2018 10:40
--- NOTE | 2018-02-03 11:00 | GI Progress Note ---
Assessment/Plan Problems: (1) Colon cancer ICD Codes: C18.9 - Malignant neoplasm of colon, unspecified SNOMED: 454002244 (2) Common bile duct stone ICD Codes: K80.50 - Calculus of bile duct without cholangitis or cholecystitis without obstruction SNOMED: 773514949 (3) Severe anemia ICD Codes: D64.9 - Anemia, unspecified SNOMED: 825689262 (4) Vomiting ICD Codes: R11.10 - Vomiting, unspecified SNOMED: 690356029 Qualifiers: Qualified Codes: R11.2 - Nausea with vomiting, unspecified (5) Choledocholithiasis ICD Codes: K80.50 - Calculus of bile duct without cholangitis or cholecystitis without obstruction SNOMED: 468854339 (6) Abdominal pain ICD Codes: R10.9 - Unspecified abdominal pain SNOMED: 05293174 Qualifiers: Qualified Codes: R10.13 - Epigastric pain (7) Anemia ICD Codes: D64.9 - Anemia, unspecified SNOMED: 537580951 Qualifiers: Qualified Codes: D64.9 - Anemia, unspecified (8) GI bleed ICD Codes: K92.2 - Gastrointestinal hemorrhage, unspecified SNOMED: 54119214 Qualifiers: Qualified Codes: K92.2 - Gastrointestinal hemorrhage, unspecified (9) Abdominal gas pain ICD Codes: R14.1 - Gas pain SNOMED: 76851817 Status: unchanged Status Narrative Discussed with Dr. Ramirez. Assessment/Plan s/p ERCP with stone removal x3 fu surgical recs for colon tumor removal and cholecystectomy The patient was seen and examined at bedside and all new and available data was reviewed in the patients chart. I agree with the above findings, impression and plan. (Patient seen earlier today. Signature stamp does not reflect patient encounter time.). - Dale Ramirez MD Subjective Gastrointestinal/Abdominal: Reports: no symptoms Objective Last 24 Hour Vital Signs Date Time Temp Pulse Resp B/P (MAP) Pulse Ox O2 Delivery O2 Flow Rate FiO2 02/03/18 10:40 64 18 99 02/03/18 09:00 Room Air 02/03/18 08:00 98.2 64 18 115/66 (82) 98 02/03/18 04:00 98.2 62 18 135/72 (93) 96 02/03/18 00:00 98.4 60 16 137/72 (93) 98 02/02/18 21:00 Room Air 02/02/18 20:00 97.4 63 18 140/73 (95) 95 02/02/18 16:00 98.6 61 18 129/70 (89) 95 02/02/18 12:00 97.6 61 18 139/75 (96) 96 02/02/18 11:00 96.6 56 20 145/75 (98) 96 Intake and Output 02/02/18 02/03/18 19:00 07:00 Intake Total 1438.75 ml 925 ml Output Total 1500 ml Balance 1438.75 ml -575 ml Intake Oral 200 ml 300 ml IV Total 1238.75 ml 625 ml Output Urine Total 1500 ml # Voids 3 2 Laboratory Tests Test 02/03/18 05:45 White Blood Count 7.3 K/UL (4.8-10.8) Red Blood Count 4.28 M/UL (4.20-5.40) Hemoglobin 8.7 G/DL (12.0-16.0) L Hematocrit 28.8 % (37.0-47.0) L Mean Corpuscular Volume 67 FL (80-99) L Mean Corpuscular Hemoglobin 20.3 PG (27.0-31.0) L Mean Corpuscular Hemoglobin Concent 30.1 G/DL (32.0-36.0) L Red Cell Distribution Width 23.4 % (11.6-14.8) H Platelet Count 297 K/UL (150-450) Mean Platelet Volume 7.0 FL (6.5-10.1) Neutrophils (%) (Auto) 69.6 % (45.0-75.0) Lymphocytes (%) (Auto) 19.1 % (20.0-45.0) L Monocytes (%) (Auto) 9.8 % (1.0-10.0) Eosinophils (%) (Auto) 0.5 % (0.0-3.0) Basophils (%) (Auto) 1.0 % (0.0-2.0) Sodium Level 139 MMOL/L (136-145) Potassium Level 3.7 MMOL/L (3.5-5.1) Chloride Level 107 MMOL/L (98-107) Carbon Dioxide Level 26 MMOL/L (21-32) Blood Urea Nitrogen 3 mg/dL (7-18) L Creatinine 0.5 MG/DL (0.55-1.30) L Estimat Glomerular Filtration Rate mL/min (>60) Glucose Level 96 MG/DL (74-106) Calcium Level 8.4 MG/DL (8.5-10.1) L Total Bilirubin 0.4 MG/DL (0.2-1.0) Aspartate Amino Transf (AST/SGOT) 16 U/L (15-37) Alanine Aminotransferase (ALT/SGPT) 18 U/L (12-78) Alkaline Phosphatase 78 U/L (46-116) Total Protein 6.1 G/DL (6.4-8.2) L Albumin 2.6 G/DL (3.4-5.0) L Globulin 3.5 g/dL Albumin/Globulin Ratio 0.7 (1.0-2.7) L Height (Feet): 5 Weight (Pounds): 112 General Appearance: WD/WN, no apparent distress, alert Cardiovascular: normal rate Respiratory/Chest: normal breath sounds, no respiratory distress Abdominal Exam: normal bowel sounds, non tender, soft Extremities: normal range of motion, non-tender Kleber Putnam GRAB OPERATOR Feb 03, 2018 11:00
--- NOTE | 2018-02-03 11:15 | General Surgery Progress Note ---
General Surgery-Progress Note Subjective Symptoms: pain absent Additional Comments no acute events. doing well. comfortable. pending CT scan today Objective Last 24 Hour Vital Signs Date Time Temp Pulse Resp B/P (MAP) Pulse Ox O2 Delivery O2 Flow Rate FiO2 02/03/18 10:40 64 18 99 02/03/18 09:00 Room Air 02/03/18 08:00 98.2 64 18 115/66 (82) 98 02/03/18 04:00 98.2 62 18 135/72 (93) 96 02/03/18 00:00 98.4 60 16 137/72 (93) 98 02/02/18 21:00 Room Air 02/02/18 20:00 97.4 63 18 140/73 (95) 95 02/02/18 16:00 98.6 61 18 129/70 (89) 95 02/02/18 12:00 97.6 61 18 139/75 (96) 96 I&O Intake and Output 02/02/18 02/03/18 19:00 07:00 Intake Total 1438.75 ml 925 ml Output Total 1500 ml Balance 1438.75 ml -575 ml Intake Oral 200 ml 300 ml IV Total 1238.75 ml 625 ml Output Urine Total 1500 ml # Voids 3 2 Drains: none Cardiovascular: RSR Respiratory: clear Abdomen: soft, flat, non-tender, present bowel sounds Extremities: no cyanosis Laboratory Tests Test 02/03/18 05:45 White Blood Count 7.3 K/UL (4.8-10.8) Red Blood Count 4.28 M/UL (4.20-5.40) Hemoglobin 8.7 G/DL (12.0-16.0) L Hematocrit 28.8 % (37.0-47.0) L Mean Corpuscular Volume 67 FL (80-99) L Mean Corpuscular Hemoglobin 20.3 PG (27.0-31.0) L Mean Corpuscular Hemoglobin Concent 30.1 G/DL (32.0-36.0) L Red Cell Distribution Width 23.4 % (11.6-14.8) H Platelet Count 297 K/UL (150-450) Mean Platelet Volume 7.0 FL (6.5-10.1) Neutrophils (%) (Auto) 69.6 % (45.0-75.0) Lymphocytes (%) (Auto) 19.1 % (20.0-45.0) L Monocytes (%) (Auto) 9.8 % (1.0-10.0) Eosinophils (%) (Auto) 0.5 % (0.0-3.0) Basophils (%) (Auto) 1.0 % (0.0-2.0) Sodium Level 139 MMOL/L (136-145) Potassium Level 3.7 MMOL/L (3.5-5.1) Chloride Level 107 MMOL/L (98-107) Carbon Dioxide Level 26 MMOL/L (21-32) Blood Urea Nitrogen 3 mg/dL (7-18) L Creatinine 0.5 MG/DL (0.55-1.30) L Estimat Glomerular Filtration Rate mL/min (>60) Glucose Level 96 MG/DL (74-106) Calcium Level 8.4 MG/DL (8.5-10.1) L Total Bilirubin 0.4 MG/DL (0.2-1.0) Aspartate Amino Transf (AST/SGOT) 16 U/L (15-37) Alanine Aminotransferase (ALT/SGPT) 18 U/L (12-78) Alkaline Phosphatase 78 U/L (46-116) Total Protein 6.1 G/DL (6.4-8.2) L Albumin 2.6 G/DL (3.4-5.0) L Globulin 3.5 g/dL Albumin/Globulin Ratio 0.7 (1.0-2.7) L Plan Problems: (1) Abdominal pain Assessment & Plan: abdominal pain, n/v, cholelithiasis, choledocholithiasis afebrile, HD stable, labs resolved. US/CT/MRCP noted anemia -colonoscopy with noted tumor -s/p ercp with stone extraction -path adenocarcinoma. also noted to have polyp at 30cm -okay for diet from surgical standpoint -trend labs -appreciate cardiology and oncology input -long discussion with patient and family at bedside. discussed presentation with severe anemia, on scope noted to have large tumor path proven adeno, CT as above. recommend colectomy. risks, benefits, and alternatives discussed with patient and family in detail. patient and family very concerned and do not feel comfortable with discharge without intervention. will cont with work up and possibly schedule for colectomy soon. -will follow with recs. thank you for this consultation. Henrique Alejo Feb 03, 2018 11:15
--- NOTE | 2018-02-03 11:30 | Infectious Diseases Prog Note ---
Assessment/Plan Assessment/Plan ASSESSMENT: Leukocytosis (due to acute stress, gastrointestinal bleed), Sp Common bile duct stone Calculus of bile duct without cholangitis or cholecystitis without obstruction 02/02 Sp ERCP:SP removal of Bill stones 02/01 CT: Previously demonstrated choledocholithiasis is not readily appreciated on the current examination presumably on the basis of interval ERCP. No significant biliary ductal dilatation is appreciated currently although the CBD is not well seen. Gallbladder is contracted with stones. 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 A large mass ulcerative at about 40 cm from the anal verge , status post biopsy. A 1.5 cm pedunculated polyp at 30 cm from the anal verge. anemia HTN PLAN: H pylori Gastritis Rx , defer to GI ( to start after colon Surg ) 01/31 SP cefepime and Flagyl d# 4 Monitor CBC. Monitor BMP. follow GI Monitor cultures (blood) GenSx following (possible cholcystectomy and rectal Sx ) Subjective Allergies: Coded Allergies: NO KNOWN ALLERGIES (Unverified Allergy, Unknown, 04/09/15) Subjective Afebrile no abd pain Objective Vital Signs Last 24 Hour Vital Signs Date Time Temp Pulse Resp B/P (MAP) Pulse Ox O2 Delivery O2 Flow Rate FiO2 02/03/18 10:40 64 18 99 02/03/18 09:00 Room Air 02/03/18 08:00 98.2 64 18 115/66 (82) 98 02/03/18 04:00 98.2 62 18 135/72 (93) 96 02/03/18 00:00 98.4 60 16 137/72 (93) 98 02/02/18 21:00 Room Air 02/02/18 20:00 97.4 63 18 140/73 (95) 95 02/02/18 16:00 98.6 61 18 129/70 (89) 95 02/02/18 12:00 97.6 61 18 139/75 (96) 96 Height (Feet): 5 Weight (Pounds): 112 Laboratory Tests Test 02/03/18 05:45 02/03/18 11:18 White Blood Count 7.3 K/UL (4.8-10.8) Red Blood Count 4.28 M/UL (4.20-5.40) Hemoglobin 8.7 G/DL (12.0-16.0) L Hematocrit 28.8 % (37.0-47.0) L Mean Corpuscular Volume 67 FL (80-99) L Mean Corpuscular Hemoglobin 20.3 PG (27.0-31.0) L Mean Corpuscular Hemoglobin Concent 30.1 G/DL (32.0-36.0) L Red Cell Distribution Width 23.4 % (11.6-14.8) H Platelet Count 297 K/UL (150-450) Mean Platelet Volume 7.0 FL (6.5-10.1) Neutrophils (%) (Auto) 69.6 % (45.0-75.0) Lymphocytes (%) (Auto) 19.1 % (20.0-45.0) L Monocytes (%) (Auto) 9.8 % (1.0-10.0) Eosinophils (%) (Auto) 0.5 % (0.0-3.0) Basophils (%) (Auto) 1.0 % (0.0-2.0) Sodium Level 139 MMOL/L (136-145) Potassium Level 3.7 MMOL/L (3.5-5.1) Chloride Level 107 MMOL/L (98-107) Carbon Dioxide Level 26 MMOL/L (21-32) Blood Urea Nitrogen 3 mg/dL (7-18) L Creatinine 0.5 MG/DL (0.55-1.30) L Estimat Glomerular Filtration Rate mL/min (>60) Glucose Level 96 MG/DL (74-106) Calcium Level 8.4 MG/DL (8.5-10.1) L Total Bilirubin 0.4 MG/DL (0.2-1.0) Aspartate Amino Transf (AST/SGOT) 16 U/L (15-37) Alanine Aminotransferase (ALT/SGPT) 18 U/L (12-78) Alkaline Phosphatase 78 U/L (46-116) Total Protein 6.1 G/DL (6.4-8.2) L Albumin 2.6 G/DL (3.4-5.0) L Globulin 3.5 g/dL Albumin/Globulin Ratio 0.7 (1.0-2.7) L PT Mixing Study Pending Mix PT Incubation Time Pending Mix PT Patient/Normal 1:1 Pending Current Medications Medications (Trade) Dose Ordered Sig/Bre Route PRN Reason Start Time Stop Time Status Last Admin Dose Admin Acetaminophen (Tylenol) 650 mg Q4H PRN ORAL fever (temp>100.5F) 01/28/18 17:30 02/27/18 17:29 Al Hydroxide/Mg Hydroxide (Mylanta II) 30 ml Q6H PRN ORAL dyspepsia 01/28/18 17:30 02/27/18 17:29 02/02/18 14:11 Chlorhexidine Gluconate (Shazia-Hex 2%) 1 applic DAILY@2000 TOPIC 01/31/18 20:00 03/02/18 19:59 02/02/18 20:01 Dextrose (Dextrose 50%) 25 ml Q30M PRN IV Hypoglycemia 01/28/18 17:15 02/27/18 07:14 Dextrose (Dextrose 50%) 50 ml Q30M PRN IV Hypoglycemia 01/28/18 17:15 02/27/18 07:14 Dextrose/Sodium Chloride 1,000 ml @ 75 mls/hr [id number] IV 01/28/18 17:00 02/27/18 08:59 02/03/18 03:38 Diphenhydramine HCl (Benadryl) 25 mg Q6H PRN ORAL Itching/Pruritis 01/28/18 17:30 02/27/18 17:29 Folic Acid (Folate) 1 mg DAILY ORAL 02/01/18 09:00 03/03/18 08:59 02/03/18 08:38 Iopamidol (Isovue-300 100ml) 100 ml NOW PRN INJ Radiology Procedure 02/03/18 10:00 02/05/18 09:57 Lorazepam (Ativan 2mg/ml 1ml) 1 mg Q4H PRN IV agitation 01/28/18 17:30 02/04/18 17:29 Morphine Sulfate (Morphine Sulfate) 2 mg Q4H PRN IVP severe pain (Pain Scale 7-10) 01/28/18 17:30 02/04/18 17:29 02/03/18 00:32 Nitroglycerin (Ntg) 0.4 mg Q5M X 3 DOSES PRN SL Prn Chest Pain 01/28/18 17:00 02/27/18 07:14 Ondansetron HCl (Zofran) 4 mg Q6H PRN IVP Nausea & Vomiting 01/28/18 17:30 02/27/18 17:29 02/02/18 17:59 Polyethylene Glycol (Miralax) 17 gm HSPRN PRN ORAL Constipation 01/28/18 21:00 02/27/18 20:59 Temazepam (Restoril) 15 mg HSPRN PRN ORAL Insomnia 01/28/18 21:00 02/04/18 20:59 Jose Lin MD Feb 03, 2018 11:30
[2018-02-03 12:00] VITALS: BP 137/72
--- NOTE | 2018-02-03 12:56 | General Progress Note ---
Assessment/Plan Status: stable, progressing Assessment/Plan anxiety d/o cognitive impairment ativan prn provided ro/st Subjective Date patient seen: Feb 03, 2018 Neurologic/Psychiatric: Reports: anxiety, depressed, emotional problems Allergies: Coded Allergies: NO KNOWN ALLERGIES (Unverified Allergy, Unknown, 04/09/15) Objective Last 24 Hour Vital Signs Date Time Temp Pulse Resp B/P (MAP) Pulse Ox O2 Delivery O2 Flow Rate FiO2 02/03/18 12:00 98.3 61 19 137/72 (93) 98 02/03/18 10:40 64 18 99 02/03/18 09:00 Room Air 02/03/18 08:00 98.2 64 18 115/66 (82) 98 02/03/18 04:00 98.2 62 18 135/72 (93) 96 02/03/18 00:00 98.4 60 16 137/72 (93) 98 02/02/18 21:00 Room Air 02/02/18 20:00 97.4 63 18 140/73 (95) 95 02/02/18 16:00 98.6 61 18 129/70 (89) 95 Intake and Output 02/02/18 02/03/18 19:00 07:00 Intake Total 1438.75 ml 925 ml Output Total 1500 ml Balance 1438.75 ml -575 ml Intake Oral 200 ml 300 ml IV Total 1238.75 ml 625 ml Output Urine Total 1500 ml # Voids 3 2 Laboratory Tests 02/03/18 05:45: White Blood Count 7.3, Red Blood Count 4.28, Hemoglobin 8.7L, Hematocrit 28.8L, Mean Corpuscular Volume 67L, Mean Corpuscular Hemoglobin 20.3L, Mean Corpuscular Hemoglobin Concent 30.1L, Red Cell Distribution Width 23.4H, Platelet Count 297, Mean Platelet Volume 7.0, Neutrophils (%) (Auto) 69.6, Lymphocytes (%) (Auto) 19.1L, Monocytes (%) (Auto) 9.8, Eosinophils (%) (Auto) 0.5, Basophils (%) (Auto) 1.0, Sodium Level 139, Potassium Level 3.7, Chloride Level 107, Carbon Dioxide Level 26, Blood Urea Nitrogen 3L, Creatinine 0.5L, Estimat Glomerular Filtration Rate , Glucose Level 96, Calcium Level 8.4L, Total Bilirubin 0.4, Aspartate Amino Transf (AST/SGOT) 16, Alanine Aminotransferase (ALT/SGPT) 18, Alkaline Phosphatase 78, Total Protein 6.1L, Albumin 2.6L, Globulin 3.5, Albumin/Globulin Ratio 0.7L 02/03/18 11:18: PT Mixing Study [Pending], Mix PT Incubation Time [Pending], Mix PT Patient/ Normal 1:1 [Pending] Height (Feet): 5 Weight (Pounds): 112 General Appearance: no apparent distress, alert Neurologic: oriented x 3, responsive, depressed affect Philip Burton MD Feb 03, 2018 12:55
--- NOTE | 2018-02-03 14:35 | Diagnostic Imaging Report ---
Clinical Indication: Chest pain Technique: IV administration nonionic contrast. Spiral acquisition obtained through the chest. Multiplanar reconstructions generated. Total dose length product 525 mGycm. CTDIvol(s) 8, 89, 13 mGy. Dose reduction achieved using automated exposure control Comparison: none Findings: The heart is mildly to moderately enlarged. There are bilateral small to moderate size right greater than left pleural effusions. There is bilateral basilar pulmonary atelectatic changes. There is questionable mild bilateral interstitial congestion as well as mild diffuse groundglass opacity no focal airspace consolidation. A few small cystic spaces are seen in the right lower lobe. No masses or nodules. There is a small amount of pericardial thickening or fluid. No mediastinal or hilar mass or adenopathy. There is a calcified granulomatous subcarinal node. The esophagus is unremarkable. The included portions of the thyroid appear unremarkable. The great neck vessels are tortuous. There is a left arm PICC, tip terminating at the innominate venous confluence. The ascending thoracic aorta is ectatic, measuring up to 3.7 cm in diameter. No evidence of dissection. No axillary or chest wall mass or adenopathy. There is an old healed right anterolateral fifth rib fracture deformity. There are mild degenerative spondylosis changes The included upper abdominal contents demonstrate contrast within the gallbladder, as well as a small air bubble. Gas bubbles are also seen within the bile ducts. Choledocholithiasis demonstrated on prior abdomen pelvis CTs is not currently evident. Incidental note is made of a small left renal cyst Impression: Cardiomegaly Evidence of congestive heart failure, with mild interstitial congestion, diffuse groundglass opacity, and right greater than left [id number] pleural effusions. Minimal pericardial thickening or fluid, evidence of old granulomatous disease Few right lower lobe cystic spaces, may indicate prior inflammation Contrast within the gallbladder, and gas bubbles within the bile ducts. This is presumably related to recent ERCP procedure Other findings as noted, including small left renal cyst, old healed right rib fracture, degenerative spondylosis, left arm PICC The CT scanner at [facility] is accredited by the [employer] and the scans are performed using protocols designed to limit radiation exposure to as low as reasonably achievable to attain images of sufficient resolution adequate for diagnostic evaluation.
[2018-02-03 16:00] VITALS: BP 134/88
--- NOTE | 2018-02-03 17:36 | Internal Med Progress Note ---
Subjective Date of Service: Feb 03, 2018 Physician Name VeronicaTashi Attending Physician Mauricio Lopez MD Current Medications Medications (Trade) Dose Ordered Sig/Bre Route PRN Reason Start Time Stop Time Status Last Admin Dose Admin Acetaminophen (Tylenol) 650 mg Q4H PRN ORAL fever (temp>100.5F) 01/28/18 17:30 02/27/18 17:29 Al Hydroxide/Mg Hydroxide (Mylanta II) 30 ml Q6H PRN ORAL dyspepsia 01/28/18 17:30 02/27/18 17:29 02/02/18 14:11 Chlorhexidine Gluconate (Shazia-Hex 2%) 1 applic DAILY@2000 TOPIC 01/31/18 20:00 03/02/18 19:59 02/02/18 20:01 Dextrose (Dextrose 50%) 25 ml Q30M PRN IV Hypoglycemia 01/28/18 17:15 02/27/18 07:14 Dextrose (Dextrose 50%) 50 ml Q30M PRN IV Hypoglycemia 01/28/18 17:15 02/27/18 07:14 Dextrose/Sodium Chloride 1,000 ml @ 75 mls/hr [id number] IV 01/28/18 17:00 02/27/18 08:59 02/03/18 03:38 Diphenhydramine HCl (Benadryl) 25 mg Q6H PRN ORAL Itching/Pruritis 01/28/18 17:30 02/27/18 17:29 Folic Acid (Folate) 1 mg DAILY ORAL 02/01/18 09:00 03/03/18 08:59 02/03/18 08:38 Iopamidol (Isovue-300 100ml) 100 ml NOW PRN INJ Radiology Procedure 02/03/18 10:00 02/05/18 09:57 Lorazepam (Ativan 2mg/ml 1ml) 1 mg Q4H PRN IV agitation 01/28/18 17:30 02/04/18 17:29 Morphine Sulfate (Morphine Sulfate) 2 mg Q4H PRN IVP severe pain (Pain Scale 7-10) 01/28/18 17:30 02/04/18 17:29 02/03/18 00:32 Nitroglycerin (Ntg) 0.4 mg Q5M X 3 DOSES PRN SL Prn Chest Pain 01/28/18 17:00 02/27/18 07:14 Ondansetron HCl (Zofran) 4 mg Q6H PRN IVP Nausea & Vomiting 01/28/18 17:30 02/27/18 17:29 02/02/18 17:59 Polyethylene Glycol (Miralax) 17 gm HSPRN PRN ORAL Constipation 01/28/18 21:00 02/27/18 20:59 Temazepam (Restoril) 15 mg HSPRN PRN ORAL Insomnia 01/28/18 21:00 02/04/18 20:59 Allergies: Coded Allergies: NO KNOWN ALLERGIES (Unverified Allergy, Unknown, 04/09/15) ROS Limited/Unobtainable: No Constitutional: Reports: no symptoms HEENT: Reports: no symptoms Cardiovascular: Reports: no symptoms Respiratory: Reports: no symptoms Gastrointestinal/Abdominal: Reports: no symptoms Genitourinary: Reports: no symptoms Neurologic/Psychiatric: Reports: no symptoms Subjective 82 YO F admitted with epigastric pain. Now gastrointestinal hemorrhage and severe anemia. Also common bile duct stone. Now sigmoid biopsy= adenocarcinoma. Cover for Int Med-Dr Lopez. S/P endoscopy 01/28/18. S/P Colonoscopy 01/31/18. S/P ERCP 02/02/18. Objective Last Vital Signs Date Time Temp Pulse Resp B/P (MAP) Pulse Ox O2 Delivery O2 Flow Rate FiO2 02/03/18 16:00 98.4 60 18 134/88 (103) 98 02/03/18 09:00 Room Air 02/02/18 09:55 3.0 Laboratory Tests Test 02/03/18 05:45 02/03/18 11:18 White Blood Count 7.3 K/UL (4.8-10.8) Red Blood Count 4.28 M/UL (4.20-5.40) Hemoglobin 8.7 G/DL (12.0-16.0) L Hematocrit 28.8 % (37.0-47.0) L Mean Corpuscular Volume 67 FL (80-99) L Mean Corpuscular Hemoglobin 20.3 PG (27.0-31.0) L Mean Corpuscular Hemoglobin Concent 30.1 G/DL (32.0-36.0) L Red Cell Distribution Width 23.4 % (11.6-14.8) H Platelet Count 297 K/UL (150-450) Mean Platelet Volume 7.0 FL (6.5-10.1) Neutrophils (%) (Auto) 69.6 % (45.0-75.0) Lymphocytes (%) (Auto) 19.1 % (20.0-45.0) L Monocytes (%) (Auto) 9.8 % (1.0-10.0) Eosinophils (%) (Auto) 0.5 % (0.0-3.0) Basophils (%) (Auto) 1.0 % (0.0-2.0) Sodium Level 139 MMOL/L (136-145) Potassium Level 3.7 MMOL/L (3.5-5.1) Chloride Level 107 MMOL/L (98-107) Carbon Dioxide Level 26 MMOL/L (21-32) Blood Urea Nitrogen 3 mg/dL (7-18) L Creatinine 0.5 MG/DL (0.55-1.30) L Estimat Glomerular Filtration Rate mL/min (>60) Glucose Level 96 MG/DL (74-106) Calcium Level 8.4 MG/DL (8.5-10.1) L Total Bilirubin 0.4 MG/DL (0.2-1.0) Aspartate Amino Transf (AST/SGOT) 16 U/L (15-37) Alanine Aminotransferase (ALT/SGPT) 18 U/L (12-78) Alkaline Phosphatase 78 U/L (46-116) Total Protein 6.1 G/DL (6.4-8.2) L Albumin 2.6 G/DL (3.4-5.0) L Globulin 3.5 g/dL Albumin/Globulin Ratio 0.7 (1.0-2.7) L PT Mixing Study Pending Mix PT Incubation Time Pending Mix PT Patient/Normal 1:1 Pending Intake and Output 02/02/18 02/03/18 19:00 07:00 Intake Total 1438.75 ml 925 ml Output Total 1500 ml Balance 1438.75 ml -575 ml Intake Oral 200 ml 300 ml IV Total 1238.75 ml 625 ml Output Urine Total 1500 ml # Voids 3 2 Objective General Appearance: WD/WN, no apparent distress, alert EENT: PERRL/EOMI, normal ENT inspection Neck: non-tender, normal alignment, supple, normal inspection Cardiovascular: normal peripheral pulses, normal rate, regular rhythm, no gallop/murmur, no JVD Respiratory/Chest: chest wall non-tender, lungs clear, normal breath sounds, no respiratory distress, no accessory muscle use Abdomen: soft, decreased bowel sounds, guarding, tender Extremities: normal range of motion, non-tender Neurologic: options advisor II-XII 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 S/P colonoscopy on 01/31/18 (2) Abdominal pain (3) Vomiting (4) Choledocholithiasis Assessment & Plan: S/P ERCP 02/02/18. See endoscopy report. See surgery consult note (5) Severe anemia Assessment & Plan: Due to GI bleed. See GI note. S/P transfusion 3 units PRBC (6) Common bile duct stone Assessment & Plan: Await ERCP on 02/02/18 - see GI consult. 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 Surgery scheduled next week. See Oncology consult and surgery consult. Status: not improved Tashi Martin MD Feb 03, 2018 17:36
[2018-02-03] MEDS: Dyna-Hex 2% Top Sol 2oz TOPIC SCH (19:43)
[2018-02-03 20:00] VITALS: BP 121/67
[2018-02-04] VITALS: BP 120/70
[2018-02-04 04:00] VITALS: BP 122/72
--- NOTE | 2018-02-04 04:00 | Consultation ---
DATE OF CONSULTATION: 02/03/2018 HEMATOLOGY/ONCOLOGY CONSULTATION CONSULTING PHYSICIAN: Alden Gallo M.D. REQUESTING PHYSICIAN: Tashi Martin M.D. REASON FOR CONSULTATION: Potential colon adenocarcinoma evaluation and treatment. IDENTIFICATION DATA: Dear Dr. Martin, The patient is a pleasant 82-year-old mostly Mohawk speaking female with past medical history, which is significant for choledocholithiasis, history of abdominal pain, history of anemia, history of GI bleed, had an EGD which was negative. Colonoscopy was performed which showed adenocarcinoma, reviewed the patient's pathology. EGD of stomach showed H. pylori infection. The patient's colonoscopy shows invasive moderate differentiated adenocarcinoma. Imaging has been reviewed. CT scan of the chest, abdomen, and pelvis shows choledocholithiasis, not well appreciated, no significant biliary ductal dilatation noted, bladder is contracted with stones, other incidental findings as noted above. ERCP is pending. Has choledocholithiasis on cross-sectional imaging. PAST MEDICAL HISTORY: As noted above. Abdominal pain, severe dehydration, choledocholithiasis. MEDICATIONS: Reviewed. ALLERGIES: No known drug allergies. SOCIAL HISTORY: No alcohol, tobacco, or illicit drug use. FAMILY HISTORY: Noncontributory. REVIEW OF SYSTEMS: PHYSICAL EXAMINATION: VITAL SIGNS: Reviewed. GENERAL: No acute distress. LUNGS: Decreased breath sounds. CARDIOVASCULAR: Regular rate. No S3 or S4. ABDOMEN: Soft, nontender, and nondistended. EXTREMITIES: No cyanosis, clubbing or edema. LABORATORY AND DIAGNOSTIC DATA: WBC 10.3, hemoglobin 9.7, and hematocrit 29, platelet count 297,000. I reviewed the patient's current labs. Folic acid 3.3, which is low. CEA 1.3. Total protein 5.6 and albumin 2.5. INR 1.2. MCV of 67. ASSESSMENT AND RECOMMENDATIONS: 1. Adenocarcinoma of the colon. At this time appears to be locally advanced. We will obtain a CT scan of the chest with contrast and obtain further imaging to make sure the malignancy has not spread to the chest. In addition, the patient has a colectomy on Wednesday and we will obtain further staging, either stage II or III. 2. Anemia of chronic disease. Obtain anemia panel. microcytic, rule out GI bleed. 3. Coagulopathy potentially secondary to liver disease/medications. Consider mixing study. 4. Anemia due to folic acid deficiency. Continue the patient on folic acid. 5. Anemia due to GI bleed. The patient has been seen by GI Service. 6. Epigastric pain, also common bile duct status post endoscopy 01/28/2018 and status post colonoscopy 01/31/2018. 7. Anxiety disorder. 8. Cognitive impairment. I appreciate the consultation. Alden Gallo M.D. DR: Jessie JOB#: [id number] CC:
[2018-02-04 06:14] LABS: BASOPHILS % (AUTO) 1.4 % (0.0-2.0); EOSINOPHILS % (AUTO) 1.7 % (0.0-3.0); HEMATOCRIT 31.7 % (37.0-47.0); HEMOGLOBIN 9.6 G/DL (12.0-16.0); LYMPHOCYTES % (AUTO) 19.9 % (20.0-45.0); MEAN CORPUSCULAR VOLUME 68 FL (80-99); MONOCYTES % (AUTO) 7.6 % (1.0-10.0); NEUTROPHILS % (AUTO) 69.4 % (45.0-75.0); PLATELET COUNT 315 K/UL (150-450); RED BLOOD COUNT 4.67 M/UL (4.20-5.40); WHITE BLOOD COUNT 7.9 K/UL (4.8-10.8)
[2018-02-04 06:26] LABS: ANION GAP 5 mmol/L (5-15); BLOOD UREA NITROGEN 4 mg/dL (7-18); CALCIUM 8.5 MG/DL (8.5-10.1); CARBON DIOXIDE 29 MMOL/L (21-32); CHLORIDE 106 MMOL/L (98-107); CREATININE 0.6 MG/DL (0.55-1.30); POTASSIUM 3.9 MMOL/L (3.5-5.1); SODIUM 140 MMOL/L (136-145)
[2018-02-04 08:00] VITALS: BP 124/68
[2018-02-04] MEDS: D5 1/2NS 1,000 ML IV SCH ×2 (08:47→14:14)
--- NOTE | 2018-02-04 09:25 | General Progress Note ---
Assessment/Plan Assessment/Plan ASSESSMENT AND RECOMMENDATIONS: 1. Adenocarcinoma of the colon. At this time appears to be locally advanced. CT scan of the chest with contrast reviewed and shows no metastasis to the chest area --> may undergo colectomy on wednesday, as per surg recs --> cea is not significantly elevated --> outpatient pet 2. Anemia of iron def. microcytic, rule out GI bleed. --> panel reviewed, begin iron x 5 days iv --> likely related to gi bleed 3. Coagulopathy potentially secondary to liver disease/medications. Consider mixing study. --> results mix pending 4. Anemia due to folic acid deficiency. Continue the patient on folic acid. 5. Anemia due to GI bleed. The patient has been seen by GI Service. ==> appr gi recs 6. Epigastric pain, also common bile duct status post endoscopy 01/28/2018 and status post colonoscopy 01/31/2018. 7. Anxiety disorder. 8. Cognitive impairment. I appreciate the consultation. Subjective Constitutional: Denies: no symptoms, chills, diaphoresis, fever, malaise, weakness, other HEENT: Denies: no symptoms, eye pain, blurred vision, tearing, double vision, ear pain, ear discharge, nose pain, nose congestion, throat pain, throat swelling, mouth pain, mouth swelling, other Cardiovascular: Denies: no symptoms, chest pain, edema, irregular heart rate, lightheadedness, palpitations, syncope, other Respiratory: Denies: no symptoms, cough, orthopnea, shortness of breath, SOB with excertion, SOB at rest, sputum, stridor, wheezing, other Gastrointestinal/Abdominal: Denies: no symptoms, abdomen distended, abdominal pain, black stools, tarry stools, blood in stool, constipated, diarrhea, difficulty swallowing, nausea, poor appetite, poor fluid intake, rectal bleeding , vomiting, other Genitourinary: Denies: no symptoms, burning, discharge, frequency, flank pain, hematuria, incontinence, pain, urgency, other Allergies: Coded Allergies: NO KNOWN ALLERGIES (Unverified Allergy, Unknown, 04/09/15) Subjective unchanged, no events to report, no bleeding, transfuse on prn basis Objective Last 24 Hour Vital Signs Date Time Temp Pulse Resp B/P (MAP) Pulse Ox O2 Delivery O2 Flow Rate FiO2 02/04/18 08:12 Room Air 02/04/18 08:00 99.4 70 18 124/68 (86) 98 18 02/04/18 04:00 97.9 70 19 122/72 (89) 99 02/04/18 00:00 98.1 65 17 120/70 (87) 98 02/03/18 21:00 Room Air 02/03/18 20:00 98.5 60 18 121/67 (85) 97 02/03/18 16:00 98.4 60 18 134/88 (103) 98 02/03/18 12:00 98.3 61 19 137/72 (93) 98 02/03/18 10:40 64 18 99 Intake and Output 02/03/18 02/04/18 18:59 06:59 Intake Total 250 ml 1230 ml Balance 250 ml 1230 ml Intake Oral 250 ml 480 ml IV Total 750 ml # Voids 4 Laboratory Tests 02/03/18 11:18: PT Mixing Study [Pending], Mix PT Incubation Time [Pending], Mix PT Patient/ Normal 1:1 [Pending] 02/04/18 05:45: White Blood Count 7.9, Red Blood Count 4.67, Hemoglobin 9.6L, Hematocrit 31.7L, Mean Corpuscular Volume 68L, Mean Corpuscular Hemoglobin 20.5L, Mean Corpuscular Hemoglobin Concent 30.2L, Red Cell Distribution Width 24.0H, Platelet Count 315, Mean Platelet Volume 6.9, Neutrophils (%) (Auto) 69.4, Lymphocytes (%) (Auto) 19.9L, Monocytes (%) (Auto) 7.6, Eosinophils (%) (Auto) 1.7, Basophils (%) (Auto) 1.4, Sodium Level 140, Potassium Level 3.9, Chloride Level 106, Carbon Dioxide Level 29, Anion Gap 5, Blood Urea Nitrogen 4L, Creatinine 0.6, Estimat Glomerular Filtration Rate , Glucose Level 90, Calcium Level 8.5 Height (Feet): 5 Weight (Pounds): 112 General Appearance: lethargic EENT: normal ENT inspection Neck: supple Cardiovascular: regular rhythm Respiratory/Chest: normal breath sounds Abdomen: soft Extremities: normal range of motion Edema: moderate edema Neurologic: alert Alden Gallo MD Feb 04, 2018 09:25
--- NOTE | 2018-02-04 11:32 | GI Progress Note ---
Assessment/Plan Problems: (1) Colon cancer ICD Codes: C18.9 - Malignant neoplasm of colon, unspecified SNOMED: 141943933 (2) Common bile duct stone ICD Codes: K80.50 - Calculus of bile duct without cholangitis or cholecystitis without obstruction SNOMED: 215219595 (3) Severe anemia ICD Codes: D64.9 - Anemia, unspecified SNOMED: 834424230 (4) Vomiting ICD Codes: R11.10 - Vomiting, unspecified SNOMED: 217233828 Qualifiers: Qualified Codes: R11.2 - Nausea with vomiting, unspecified (5) Choledocholithiasis ICD Codes: K80.50 - Calculus of bile duct without cholangitis or cholecystitis without obstruction SNOMED: 469945311 (6) Abdominal pain ICD Codes: R10.9 - Unspecified abdominal pain SNOMED: 03250830 Qualifiers: Qualified Codes: R10.13 - Epigastric pain (7) Anemia ICD Codes: D64.9 - Anemia, unspecified SNOMED: 760297591 Qualifiers: Qualified Codes: D64.9 - Anemia, unspecified (8) GI bleed ICD Codes: K92.2 - Gastrointestinal hemorrhage, unspecified SNOMED: 99477588 Qualifiers: Qualified Codes: K92.2 - Gastrointestinal hemorrhage, unspecified (9) Abdominal gas pain ICD Codes: R14.1 - Gas pain SNOMED: 68779303 Status: stable Status Narrative Discussed with Dr. Ramirez. Assessment/Plan s/p ERCP with stone removal x3 fu surgical recs for colon tumor removal and cholecystectomy The patient was seen and examined at bedside and all new and available data was reviewed in the patients chart. I agree with the above findings, impression and plan. (Patient seen earlier today. Signature stamp does not reflect patient encounter time.). - Dale Ramirez MD Subjective Gastrointestinal/Abdominal: Reports: no symptoms Objective Last 24 Hour Vital Signs Date Time Temp Pulse Resp B/P (MAP) Pulse Ox O2 Delivery O2 Flow Rate FiO2 02/04/18 08:12 Room Air 02/04/18 08:00 99.4 70 18 124/68 (86) 98 18 02/04/18 04:00 97.9 70 19 122/72 (89) 99 02/04/18 00:00 98.1 65 17 120/70 (87) 98 02/03/18 21:00 Room Air 02/03/18 20:00 98.5 60 18 121/67 (85) 97 02/03/18 16:00 98.4 60 18 134/88 (103) 98 02/03/18 12:00 98.3 61 19 137/72 (93) 98 Intake and Output 02/03/18 02/04/18 19:00 07:00 Intake Total 250 ml 1305 ml Balance 250 ml 1305 ml Intake Oral 250 ml 480 ml IV Total 825 ml # Voids 4 Laboratory Tests Test 02/04/18 05:45 White Blood Count 7.9 K/UL (4.8-10.8) Red Blood Count 4.67 M/UL (4.20-5.40) Hemoglobin 9.6 G/DL (12.0-16.0) L Hematocrit 31.7 % (37.0-47.0) L Mean Corpuscular Volume 68 FL (80-99) L Mean Corpuscular Hemoglobin 20.5 PG (27.0-31.0) L Mean Corpuscular Hemoglobin Concent 30.2 G/DL (32.0-36.0) L Red Cell Distribution Width 24.0 % (11.6-14.8) H Platelet Count 315 K/UL (150-450) Mean Platelet Volume 6.9 FL (6.5-10.1) Neutrophils (%) (Auto) 69.4 % (45.0-75.0) Lymphocytes (%) (Auto) 19.9 % (20.0-45.0) L Monocytes (%) (Auto) 7.6 % (1.0-10.0) Eosinophils (%) (Auto) 1.7 % (0.0-3.0) Basophils (%) (Auto) 1.4 % (0.0-2.0) Sodium Level 140 MMOL/L (136-145) Potassium Level 3.9 MMOL/L (3.5-5.1) Chloride Level 106 MMOL/L (98-107) Carbon Dioxide Level 29 MMOL/L (21-32) Anion Gap 5 mmol/L (5-15) Blood Urea Nitrogen 4 mg/dL (7-18) L Creatinine 0.6 MG/DL (0.55-1.30) Estimat Glomerular Filtration Rate mL/min (>60) Glucose Level 90 MG/DL (74-106) Calcium Level 8.5 MG/DL (8.5-10.1) Height (Feet): 5 Weight (Pounds): 112 General Appearance: WD/WN, no apparent distress, alert Cardiovascular: normal rate Respiratory/Chest: normal breath sounds, no respiratory distress Abdominal Exam: normal bowel sounds, non tender, soft Extremities: normal range of motion, non-tender Kleber Putnam NP Feb 04, 2018 11:32
--- NOTE | 2018-02-04 11:38 | General Surgery Progress Note ---
General Surgery-Progress Note Subjective Additional Comments no acute events. doing well. Objective Last 24 Hour Vital Signs Date Time Temp Pulse Resp B/P (MAP) Pulse Ox O2 Delivery O2 Flow Rate FiO2 02/04/18 08:12 Room Air 02/04/18 08:00 99.4 70 18 124/68 (86) 98 18 02/04/18 04:00 97.9 70 19 122/72 (89) 99 02/04/18 00:00 98.1 65 17 120/70 (87) 98 02/03/18 21:00 Room Air 02/03/18 20:00 98.5 60 18 121/67 (85) 97 02/03/18 16:00 98.4 60 18 134/88 (103) 98 02/03/18 12:00 98.3 61 19 137/72 (93) 98 I&O Intake and Output 02/03/18 02/04/18 19:00 07:00 Intake Total 250 ml 1305 ml Balance 250 ml 1305 ml Intake Oral 250 ml 480 ml IV Total 825 ml # Voids 4 Drains: none Cardiovascular: RSR Respiratory: clear Abdomen: soft, flat, non-tender, present bowel sounds Extremities: no tenderness, no cyanosis Laboratory Tests Test 02/04/18 05:45 White Blood Count 7.9 K/UL (4.8-10.8) Red Blood Count 4.67 M/UL (4.20-5.40) Hemoglobin 9.6 G/DL (12.0-16.0) L Hematocrit 31.7 % (37.0-47.0) L Mean Corpuscular Volume 68 FL (80-99) L Mean Corpuscular Hemoglobin 20.5 PG (27.0-31.0) L Mean Corpuscular Hemoglobin Concent 30.2 G/DL (32.0-36.0) L Red Cell Distribution Width 24.0 % (11.6-14.8) H Platelet Count 315 K/UL (150-450) Mean Platelet Volume 6.9 FL (6.5-10.1) Neutrophils (%) (Auto) 69.4 % (45.0-75.0) Lymphocytes (%) (Auto) 19.9 % (20.0-45.0) L Monocytes (%) (Auto) 7.6 % (1.0-10.0) Eosinophils (%) (Auto) 1.7 % (0.0-3.0) Basophils (%) (Auto) 1.4 % (0.0-2.0) Sodium Level 140 MMOL/L (136-145) Potassium Level 3.9 MMOL/L (3.5-5.1) Chloride Level 106 MMOL/L (98-107) Carbon Dioxide Level 29 MMOL/L (21-32) Anion Gap 5 mmol/L (5-15) Blood Urea Nitrogen 4 mg/dL (7-18) L Creatinine 0.6 MG/DL (0.55-1.30) Estimat Glomerular Filtration Rate mL/min (>60) Glucose Level 90 MG/DL (74-106) Calcium Level 8.5 MG/DL (8.5-10.1) Plan Problems: (1) Abdominal pain Assessment & Plan: abdominal pain, n/v, cholelithiasis, choledocholithiasis afebrile, HD stable, labs resolved. US/CT/MRCP noted anemia -colonoscopy with noted tumor -s/p ercp with stone extraction -path adenocarcinoma. also noted to have polyp at 30cm -okay for diet from surgical standpoint -trend labs -appreciate cardiology and oncology input -long discussion with patient and family at bedside. discussed presentation with severe anemia, on scope noted to have large tumor path proven adeno, CT as above. recommend colectomy. risks, benefits, and alternatives discussed with patient and family in detail. patient and family very concerned and do not feel comfortable with discharge without intervention. will cont with work up and possibly schedule for colectomy soon. -will follow with recs. -plan for colectomy and cholecystectomy Wednesday -npo p mn wednesday thank you for this consultation. Henrique Alejo Feb 04, 2018 11:38
[2018-02-04 12:00] VITALS: BP 121/69
[2018-02-04] MEDS ORDERED: D5 1/2NS 1000ml IV ONE ×2 (13:33→18:19)
--- NOTE | 2018-02-04 15:16 | Infectious Diseases Prog Note ---
Assessment/Plan Assessment/Plan ASSESSMENT: Leukocytosis (due to acute stress, gastrointestinal bleed), Sp Common bile duct stone Calculus of bile duct without cholangitis or cholecystitis without obstruction 02/02 Sp ERCP:SP removal of Bill stones 02/01 CT: Previously demonstrated choledocholithiasis is not readily appreciated on the current examination presumably on the basis of interval ERCP. No significant biliary ductal dilatation is appreciated currently although the CBD is not well seen. Gallbladder is contracted with stones. 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 A large mass ulcerative at about 40 cm from the anal verge , status post biopsy. A 1.5 cm pedunculated polyp at 30 cm from the anal verge. anemia HTN PLAN: H pylori Gastritis Rx , defer to GI ( to start after colon Surg ) 01/31 SP cefepime and Flagyl d# 4 Monitor CBC. Monitor BMP. follow GI GenSx following (possible cholcystectomy and rectal Sx ) on Wednesday Subjective Allergies: Coded Allergies: NO KNOWN ALLERGIES (Unverified Allergy, Unknown, 04/09/15) Subjective Afebrile no abd pain Objective Vital Signs Last 24 Hour Vital Signs Date Time Temp Pulse Resp B/P (MAP) Pulse Ox O2 Delivery O2 Flow Rate FiO2 02/04/18 12:00 98.1 63 18 121/69 (86) 98 02/04/18 08:12 Room Air 02/04/18 08:00 99.4 70 18 124/68 (86) 98 18 02/04/18 04:00 97.9 70 19 122/72 (89) 99 02/04/18 00:00 98.1 65 17 120/70 (87) 98 02/03/18 21:00 Room Air 02/03/18 20:00 98.5 60 18 121/67 (85) 97 02/03/18 16:00 98.4 60 18 134/88 (103) 98 Height (Feet): 5 Weight (Pounds): 112 Laboratory Tests Test 02/04/18 05:45 White Blood Count 7.9 K/UL (4.8-10.8) Red Blood Count 4.67 M/UL (4.20-5.40) Hemoglobin 9.6 G/DL (12.0-16.0) L Hematocrit 31.7 % (37.0-47.0) L Mean Corpuscular Volume 68 FL (80-99) L Mean Corpuscular Hemoglobin 20.5 PG (27.0-31.0) L Mean Corpuscular Hemoglobin Concent 30.2 G/DL (32.0-36.0) L Red Cell Distribution Width 24.0 % (11.6-14.8) H Platelet Count 315 K/UL (150-450) Mean Platelet Volume 6.9 FL (6.5-10.1) Neutrophils (%) (Auto) 69.4 % (45.0-75.0) Lymphocytes (%) (Auto) 19.9 % (20.0-45.0) L Monocytes (%) (Auto) 7.6 % (1.0-10.0) Eosinophils (%) (Auto) 1.7 % (0.0-3.0) Basophils (%) (Auto) 1.4 % (0.0-2.0) Sodium Level 140 MMOL/L (136-145) Potassium Level 3.9 MMOL/L (3.5-5.1) Chloride Level 106 MMOL/L (98-107) Carbon Dioxide Level 29 MMOL/L (21-32) Anion Gap 5 mmol/L (5-15) Blood Urea Nitrogen 4 mg/dL (7-18) L Creatinine 0.6 MG/DL (0.55-1.30) Estimat Glomerular Filtration Rate mL/min (>60) Glucose Level 90 MG/DL (74-106) Calcium Level 8.5 MG/DL (8.5-10.1) Current Medications Medications (Trade) Dose Ordered Sig/Bre Route PRN Reason Start Time Stop Time Status Last Admin Dose Admin Acetaminophen (Tylenol) 650 mg Q4H PRN ORAL fever (temp>100.5F) 01/28/18 17:30 02/27/18 17:29 Al Hydroxide/Mg Hydroxide (Mylanta II) 30 ml Q6H PRN ORAL dyspepsia 01/28/18 17:30 02/27/18 17:29 02/02/18 14:11 Chlorhexidine Gluconate (Shazia-Hex 2%) 1 applic DAILY@1999 TOPIC 01/31/18 20:00 03/02/18 19:59 02/03/18 19:43 Dextrose (Dextrose 50%) 25 ml Q30M PRN IV Hypoglycemia 01/28/18 17:15 02/27/18 07:14 Dextrose (Dextrose 50%) 50 ml Q30M PRN IV Hypoglycemia 01/28/18 17:15 02/27/18 07:14 Dextrose/Sodium Chloride 1,000 ml @ 75 mls/hr [id number] IV 01/28/18 17:00 02/27/18 08:59 02/04/18 14:14 Diphenhydramine HCl (Benadryl) 25 mg Q6H PRN ORAL Itching/Pruritis 01/28/18 17:30 02/27/18 17:29 Folic Acid (Folate) 1 mg DAILY ORAL 02/01/18 09:00 03/03/18 08:59 02/04/18 08:46 Iopamidol (Isovue-300 100ml) 100 ml NOW PRN INJ Radiology Procedure 02/03/18 10:00 02/05/18 09:57 Iron Sucrose 100 mg/Sodium Chloride 60 ml @ 240 mls/hr BEDTIME IVPB 02/04/18 21:00 02/08/18 21:14 Lorazepam (Ativan 2mg/ml 1ml) 1 mg Q4H PRN IV agitation 01/28/18 17:30 02/04/18 17:29 Morphine Sulfate (Morphine Sulfate) 2 mg Q4H PRN IVP severe pain (Pain Scale 7-10) 01/28/18 17:30 02/04/18 17:29 02/03/18 00:32 Nitroglycerin (Ntg) 0.4 mg Q5M X 3 DOSES PRN SL Prn Chest Pain 01/28/18 17:00 02/27/18 07:14 Ondansetron HCl (Zofran) 4 mg Q6H PRN IVP Nausea & Vomiting 01/28/18 17:30 02/27/18 17:29 02/02/18 17:59 Polyethylene Glycol (Miralax) 17 gm HSPRN PRN ORAL Constipation 01/28/18 21:00 02/27/18 20:59 Temazepam (Restoril) 15 mg HSPRN PRN ORAL Insomnia 01/28/18 21:00 02/04/18 20:59 Jose Lin MD Feb 04, 2018 15:16
[2018-02-04 16:00] VITALS: BP 127/73
--- NOTE | 2018-02-04 16:01 | Internal Med Progress Note ---
Subjective Physician Name Mauricio Lopez Attending Physician Mauricio Lopez MD Current Medications Medications (Trade) Dose Ordered Sig/Bre Route PRN Reason Start Time Stop Time Status Last Admin Dose Admin Acetaminophen (Tylenol) 650 mg Q4H PRN ORAL fever (temp>100.5F) 01/28/18 17:30 02/27/18 17:29 Al Hydroxide/Mg Hydroxide (Mylanta II) 30 ml Q6H PRN ORAL dyspepsia 01/28/18 17:30 02/27/18 17:29 02/02/18 14:11 Chlorhexidine Gluconate (Shazia-Hex 2%) 1 applic DAILY@2000 TOPIC 01/31/18 20:00 03/02/18 19:59 02/03/18 19:43 Dextrose (Dextrose 50%) 25 ml Q30M PRN IV Hypoglycemia 01/28/18 17:15 02/27/18 07:14 Dextrose (Dextrose 50%) 50 ml Q30M PRN IV Hypoglycemia 01/28/18 17:15 02/27/18 07:14 Dextrose/Sodium Chloride 1,000 ml @ 75 mls/hr [id number] IV 01/28/18 17:00 02/27/18 08:59 02/04/18 14:14 Diphenhydramine HCl (Benadryl) 25 mg Q6H PRN ORAL Itching/Pruritis 01/28/18 17:30 02/27/18 17:29 Folic Acid (Folate) 1 mg DAILY ORAL 02/01/18 09:00 03/03/18 08:59 02/04/18 08:46 Iopamidol (Isovue-300 100ml) 100 ml NOW PRN INJ Radiology Procedure 02/03/18 10:00 02/05/18 09:57 Iron Sucrose 100 mg/Sodium Chloride 60 ml @ 240 mls/hr BEDTIME IVPB 02/04/18 21:00 02/08/18 21:14 Lorazepam (Ativan 2mg/ml 1ml) 1 mg Q4H PRN IV agitation 01/28/18 17:30 02/04/18 17:29 Morphine Sulfate (Morphine Sulfate) 2 mg Q4H PRN IVP severe pain (Pain Scale 7-10) 01/28/18 17:30 02/04/18 17:29 02/03/18 00:32 Nitroglycerin (Ntg) 0.4 mg Q5M X 3 DOSES PRN SL Prn Chest Pain 01/28/18 17:00 02/27/18 07:14 Ondansetron HCl (Zofran) 4 mg Q6H PRN IVP Nausea & Vomiting 01/28/18 17:30 02/27/18 17:29 02/02/18 17:59 Polyethylene Glycol (Miralax) 17 gm HSPRN PRN ORAL Constipation 01/28/18 21:00 02/27/18 20:59 Temazepam (Restoril) 15 mg HSPRN PRN ORAL Insomnia 01/28/18 21:00 02/04/18 20:59 Allergies: Coded Allergies: NO KNOWN ALLERGIES (Unverified Allergy, Unknown, 04/09/15) Subjective awake, alert, responsive , NAD Objective Last Vital Signs Date Time Temp Pulse Resp B/P (MAP) Pulse Ox O2 Delivery O2 Flow Rate FiO2 02/04/18 12:00 98.1 63 18 121/69 (86) 98 02/04/18 08:12 Room Air 02/02/18 09:55 3.0 Laboratory Tests Test 02/04/18 05:45 White Blood Count 7.9 K/UL (4.8-10.8) Red Blood Count 4.67 M/UL (4.20-5.40) Hemoglobin 9.6 G/DL (12.0-16.0) L Hematocrit 31.7 % (37.0-47.0) L Mean Corpuscular Volume 68 FL (80-99) L Mean Corpuscular Hemoglobin 20.5 PG (27.0-31.0) L Mean Corpuscular Hemoglobin Concent 30.2 G/DL (32.0-36.0) L Red Cell Distribution Width 24.0 % (11.6-14.8) H Platelet Count 315 K/UL (150-450) Mean Platelet Volume 6.9 FL (6.5-10.1) Neutrophils (%) (Auto) 69.4 % (45.0-75.0) Lymphocytes (%) (Auto) 19.9 % (20.0-45.0) L Monocytes (%) (Auto) 7.6 % (1.0-10.0) Eosinophils (%) (Auto) 1.7 % (0.0-3.0) Basophils (%) (Auto) 1.4 % (0.0-2.0) Sodium Level 140 MMOL/L (136-145) Potassium Level 3.9 MMOL/L (3.5-5.1) Chloride Level 106 MMOL/L (98-107) Carbon Dioxide Level 29 MMOL/L (21-32) Anion Gap 5 mmol/L (5-15) Blood Urea Nitrogen 4 mg/dL (7-18) L Creatinine 0.6 MG/DL (0.55-1.30) Estimat Glomerular Filtration Rate mL/min (>60) Glucose Level 90 MG/DL (74-106) Calcium Level 8.5 MG/DL (8.5-10.1) Intake and Output 02/03/18 02/04/18 19:00 07:00 Intake Total 250 ml 1305 ml Balance 250 ml 1305 ml Intake Oral 250 ml 480 ml IV Total 825 ml # Voids 4 Objective General: No acute distress, awake and alert HEENT: NCAT, sclera anicteric, PERRL, EOMI. Neck: Supple, no significant jugular venous distention, Lungs: Good inspiratory effort, , clear to auscultation bilaterally, no Wheeze or Rales. Heart: Regular rate and rhythm, normal S1/S2, no murmurs Abdomen: soft, nontender, nondistended. Normoactive bowel sounds. Extremities: No Cyanosis , clubbing or edema, RUE Piccline Neuro: A&O x 3, Able to move all extremities Skin: warm, no rashes or lesions Psych: Normal mood and affect Assessment/Plan Assessment/Plan (1) GI bleed Assessment & Plan: S/P endoscopy on 01/28/18 -see GI note=gastritis. S/P colonoscopy on 01/31/18 (2) Abdominal pain (3) Vomiting (4) Choledocholithiasis Assessment & Plan: S/P ERCP 02/02/18. See endoscopy report. See surgery consult note (5) Severe anemia Assessment & Plan: Due to GI bleed. See GI note. S/P transfusion 3 units PRBC (6) Common bile duct stone Assessment & Plan: Await ERCP on 02/02/18 - see GI consult. 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 Surgery scheduled next week. See Oncology consult and surgery consult. Mauricio Lopez MD Feb 04, 2018 16:01
[2018-02-04] MEDS ORDERED: Tubing IV Secondary IV ONE (18:19)
--- NOTE | 2018-02-04 20:47 | General Progress Note ---
Assessment/Plan Assessment/Plan anxiety d/o cognitive impairment ativan prn provided ro/st Subjective Date patient seen: Feb 04, 2018 Neurologic/Psychiatric: Reports: anxiety, depressed, emotional problems Allergies: Coded Allergies: NO KNOWN ALLERGIES (Unverified Allergy, Unknown, 04/09/15) Objective Last 24 Hour Vital Signs Date Time Temp Pulse Resp B/P (MAP) Pulse Ox O2 Delivery O2 Flow Rate FiO2 02/04/18 16:00 98.7 63 18 127/73 (91) 98 02/04/18 12:00 98.1 63 18 121/69 (86) 98 02/04/18 08:12 Room Air 02/04/18 08:00 99.4 70 18 124/68 (86) 98 18 02/04/18 04:00 97.9 70 19 122/72 (89) 99 02/04/18 00:00 98.1 65 17 120/70 (87) 98 02/03/18 21:00 Room Air Intake and Output 02/03/18 02/04/18 19:00 07:00 Intake Total 250 ml 1305 ml Balance 250 ml 1305 ml Intake Oral 250 ml 480 ml IV Total 825 ml # Voids 4 Laboratory Tests 02/04/18 05:45: White Blood Count 7.9, Red Blood Count 4.67, Hemoglobin 9.6L, Hematocrit 31.7L, Mean Corpuscular Volume 68L, Mean Corpuscular Hemoglobin 20.5L, Mean Corpuscular Hemoglobin Concent 30.2L, Red Cell Distribution Width 24.0H, Platelet Count 315, Mean Platelet Volume 6.9, Neutrophils (%) (Auto) 69.4, Lymphocytes (%) (Auto) 19.9L, Monocytes (%) (Auto) 7.6, Eosinophils (%) (Auto) 1.7, Basophils (%) (Auto) 1.4, Sodium Level 140, Potassium Level 3.9, Chloride Level 106, Carbon Dioxide Level 29, Anion Gap 5, Blood Urea Nitrogen 4L, Creatinine 0.6, Estimat Glomerular Filtration Rate , Glucose Level 90, Calcium Level 8.5 Height (Feet): 5 Weight (Pounds): 112 General Appearance: no apparent distress, alert Philip Burton MD Feb 04, 2018 20:47
[2018-02-04] MEDS ORDERED: Iron Sucrose 100 MG in NS 55 ML IVPB SCH (21:00)
[2018-02-07 13:34] LABS: 1HR INCUBATION PT 1:1NP 10.8 sec (9.6-11.5); PROTHROMBIN TIME MIXING STUDY 11.9 sec (9.6-11.5); PT 1:1NP 10.6 sec (9.6-11.5)
--- NOTE | 2018-02-07 13:45 | Discharge Summary ---
Discharge Summary Discharge Summary _ DATE OF ADMISSION: 01/28/2018 DATE OF DISCHARGE: 02/04/2018 REASON FOR ADMISSION: 82 years old female with unknown past medical history , presented with abdominal pain associated with nausea and vomiting. Patient also reported melena. Upon evaluation patient noted to have mild leukocytosis WBC 12 . Hemoglobin 5.2 hematocrit 17.5 . Chest x-ray revealed no acute cardiopulmonary pathology Initial CT scan of abdomen and pelvis revealed cholelithiasis and choledocholithiasis. Chemistry was stable. LFT and lipase were within normal range. Patient admitted with diagnoses of severe anemia, probably GI bleeding , abdominal pain, severe dehydration, malnutrition ,choledocholithiasis, cholelithiasis. CONSULTANTS: ID specialist Dr. Lin GI specialist Dr. Ramirez bad credit collector/oncologist Dr. Gallo surgery Dr. Alejo psychiatrist [facility] COURSE: Patient admitted to telemetry floor and started on IV fluids. GI consult was requested. Patient started on Protonix drip. Pain management was addressed. Antiemetic provided as needed. Patient subsequently undergone esophagogastroduodenoscopy, which revealed gastritis, status post biopsy, otherwise normal upper endoscopy examination. GI specialist recommended colonoscopy , given initial hemoglobin of 5.2. Biopsy of of the stomach antrum revealed evidence of H. pylori infection. Patient will need treatment for H. pylori infection, probably after surgery Abdominal ultrasound revealed cholelithiasis and choledocholithiasis. Subsequently abdominal MRI was done , and also revealed cholelithiasis, choledocholithiasis and dilation of common bile duct. Meantime patient was undergone transfusion of total of 3 units of packed red blood cells. Hemoglobin and hematocrit were closely monitored with goal to keep hemoglobin above 7. [employer] Feeder closely followed. Anemia workup revealed evidence of iron deficiency anemia likely due to GI bleeding and folate deficiency. Patient started on IV Venofer and folate replacement. Prior to discharge hemoglobin 9.6 hematocrit 31.7. Initial colonoscopy was attempted on 01/31, but was unsuccessful, and only flexible sigmoidoscopy was performed. Noted large ulcerated mass at about 40 cm from the anal verge, status post biopsy. 1.5 cm pedunculated polyp at 30 cm from the anal verge. Biopsy of the sigmoid colon mass revealed invasive, moderately differentiated adenocarcinoma. CT of the abdomen and pelvis and of the chest revealed no evidence of metastasis. Patient subsequently undergone on 02/02 ERCP with sphincterotomy, stone removal , and dilation. ERCP was very challenging, most of it was done in the supine position , however successful , status post ERCP,sphincterotomy ,dilation with balloon assistance and stone extraction. Patient started on clear liquid diet and was advanced as tolerated. Surgery consult was requested. Patient required both colectomy and cholecystectomy. Surgeon seen, evaluated and closely followed patient. Surgeon discussed further care with the family. Surgeon was unable to easily identify tumor on CAT scan , and recommended to hold off on surgery for now, and repeat full colonoscopy with tattoo of tumor first prior to surgery ,which can be done as outpatient. Surgeon cleared for this discharge. Per surgery patient will need to follow-up with the primary care provider as outpatient to schedule for full colonoscopy at that point tomorrow and then follow-up with a surgeon for surgery after colonoscopy completed. Per oncologist, patient will need PET scan as outpatient. CT abdomen and pelvis did not revealed any evidence of metastases. CEA-1.3 Infectious disease specialist followed. Patient developed significant leukocytosis - 23.6. Patient remained afebrile. Chest x-ray was negative ; urine culture revealed strep group B with colony count less than 20.. Per surgeon, leukocytosis was reactive, likely secondary to acute stress of GI bleeding. Leukocytosis resolved. Electrolytes were closely monitored and corrected as needed. Psychiatrist seen and evaluated the patient for anxiety disorder. Reality orientation supportive therapy provided. Anxiolytics provided as needed. Pre Coder recommendations implemented in plan of care. Patient was cleared for discharge patient to follow-up with primary care provider for referral to GI and then to surgery . Patient will need both colectomy and cholecystectomy. FINAL DIAGNOSES: Cholelithiasis Choledocholithiasis Common bile duct stone status post ERCP with stone extraction Severe iron deficiency anemia due to GI bleeding GI bleeding Folic acid deficiency Colon adenocarcinoma H. pylori gastritis Leukocytosis, resolved Dehydration Malnutrition Abdominal pain Anxiety disorder DISCHARGE MEDICATIONS: See Medication Reconciliation list. DISCHARGE INSTRUCTIONS: Patient was discharged home. Patient to follow-up with primary care provider as outpatient to see GI specialist for full colonoscopy with tattoo of tumor, and then follow-up with surgeon for surgery. Patient will need treatment for H pylori gastritis, probably after surgery. I have been assigned to dictate discharge summary for this account. I was not involved in the patient's management. Maribeth Ortega NP Feb 07, 2018 13:45
== END 2018-02-04 18:20 | disposition home or self-care (01) | DRG 375 ==
LOC: EDBD 04:32 → EMR 04:40 → 4E 04:56 → EDBEDREQ 05:44 → 2E 09:24 → 3E 17:00
PROC: 30253N1 (ICD-10-PCS; principal; 2018-01-28 11:04)
PROC: 0DB78ZX Excision of Stomach, Pylorus, Via Natural or Artificial Opening Endoscopic, Diagnostic (ICD-10-PCS; principal; 2018-01-28 11:04)
PROC: 0DBN8ZX Excision of Sigmoid Colon, Via Natural or Artificial Opening Endoscopic, Diagnostic (ICD-10-PCS; 2018-01-31)
PROC: B518ZZA Fluoroscopy of Superior Vena Cava, Guidance (ICD-10-PCS; 2018-02-01)
PROC: 02HV33Z Insertion of Infusion Device into Superior Vena Cava, Percutaneous Approach (ICD-10-PCS; 2018-02-01)
PROC: 0FC98ZZ Extirpation of Matter from Common Bile Duct, Via Natural or Artificial Opening Endoscopic (ICD-10-PCS; 2018-02-02 07:50)
PROC: 0F798ZZ Dilation of Common Bile Duct, Via Natural or Artificial Opening Endoscopic (ICD-10-PCS; 2018-02-02 07:50)
DX: C18.7 Malignant neoplasm of sigmoid colon (principal); E46 Unspecified protein-calorie malnutrition; E86.0 Dehydration; Z68.21 Body mass index [BMI] 21.0-21.9, adult; K80.70 Calculus of gallbladder and bile duct without cholecystitis without obstruction; D50.9 Iron deficiency anemia, unspecified; D52.9 Folate deficiency anemia, unspecified; G31.84 Mild cognitive impairment of uncertain or unknown etiology; I10 Essential (primary) hypertension; K29.70 Gastritis, unspecified, without bleeding; B96.81 Helicobacter pylori [H. pylori] as the cause of diseases classified elsewhere; F41.9 Anxiety disorder, unspecified
CPT/HCPCS: 36415; 36569; 71045; 71260; 74176; 74177; 74181; 74328; 76000; 76700; 76937; 80048; 80053; 81003; 82150; 82270; 82378; 82550; 82553; 82607; 82746; 83540; 83550; 83615; 83690; 83735; 84100; 84484; 85007; 85025; 85044; 85060; 85610; 85611; 85651; 85730; 86140; 86850; 86900; 86901; 86920; 87086; 93005; 94003; 94150; 96374; 96375; 99291; J2405; J8499